=== PATIENT | female | born 1980 | race Caucasian/White ===

== ENCOUNTER 2016-08-23 11:48 | Inpatient (IN) | payer BC ==
[2016-08-23] MEDS ORDERED: SODIUM CHLORIDE 0.9% 1,000 ML IV STA ×2 (12:08)
--- NOTE | 2016-08-23 12:12 | ED ---
General Adult HPI - General Chief complaint: Abdominal Pain Stated complaint: CONSTIPATION Time Seen by Provider: 08/23/16 12:01 Source: patient, RN notes reviewed Mode of arrival: ambulatory Limitations: no limitations - History of Present Illness Initial comments: Patient 36-year-old female who presents emergency room today with a chief complaint of abdominal pain. She does admit that pain started approximately a week ago has seen her family doctor and did have an outpatient CT of the abdomen performed at [facility] yesterday. States still having pain today call the family doctor who advised to come to the hospital. She decided to come here. Patient doesn't pain locally to the lower abdomen. She states she does feel some pain in her back as well. She states she's not had a good bowel movement in over a week. She does admit that she's had some loose stool and maybe small amounts at times but nothing significant. Patient states never had similar symptoms in the past. She denies any other complaints or associated symptoms at this time. Patient denies any recent fever, chills, shortness of breath, chest pain, nausea or vomiting, numbness or tingling, dysuria or hematuria, diarrhea, headaches or visual changes, or any other complaints. - Related Data Home Medications Medication Instructions Recorded Confirmed Albuterol Sulfate [Ventolin HFA] 1 - 2 puff INHALATION RT-Q6H PRN 12/29/1408/23 Allergies Allergy/AdvReac Type Severity Reaction Status Date / Time lisinopril Allergy Anaphylaxis Verified 08/23/16 13:00 Review of Systems ROS Statement: Those systems with pertinent positive or pertinent negative responses have been documented in the HPI. ROS Other: All systems not noted in ROS Statement are negative. Past Medical History Additional Past Medical History / Comment(s): ABD PAIN, POSITIVE OCCULT STOOL, STATES MAY STILL HAVE HTN, BUT NOT ON ANY MEDICATION History of Any Multi-Drug Resistant Organisms: None Reported Past Surgical History: Adenoidectomy, Tonsillectomy Additional Past Surgical History / Comment(s): 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PLACENTA Past Anesthesia/Blood Transfusion Reactions: No Reported Reaction Past Psychological History: No Psychological Hx Reported Smoking Status: Current every day smoker Past Alcohol Use History: Occasional Past Drug Use History: None Reported - Past Family History Father Family Medical History: Cancer Additional Family Medical History / Comment(s): LEUKEMIA General Exam - General Exam Comments Initial Comments: General: The patient is awake and alert, in no distress, and does not appear acutely ill. Eye: Pupils are equal, round and reactive to light, extra-ocular movements are intact. No nystagmus. There is normal conjunctiva bilaterally. No signs of icterus. Ears, nose, mouth and throat: There are moist mucous membranes and no oral lesions. Neck: The neck is supple, there is no tenderness or JVD. Cardiovascular: There is a regular rate and rhythm. No murmur, rub or gallop is appreciated. Respiratory: Lungs are clear to auscultation, respirations are non-labored, breath sounds are equal. No wheezes, stridor, rales, or rhonchi. Gastrointestinal: Abdomen appears them. Normal bowel sounds. Abdomen soft on palpation. Patient does have some tenderness to the left lower quadrant. No rebound tenderness. No guarding. No CVA tenderness. Musculoskeletal: Normal ROM, no tenderness. Strength 5/5. Sensation intact. Pulses equal bilaterally 2+. Neurological: A&O x 3. CN II-XII intact, There are no obvious motor or sensory deficits. Coordination appears grossly intact. Speech is normal. Skin: Skin is warm and dry and no rashes or lesions are noted. Psychiatric: Cooperative, appropriate mood & affect, normal judgment. Limitations: no limitations Course Vital Signs 08/23/16 08/23/16 11:49 12:50 Temperature 98.2 F 98.1 F Pulse Rate 106 H 98 Respiratory 18 16 Rate Blood Pressure 170/93 133/76 O2 Sat by Pulse 94 L 95 Oximetry Medical Decision Making - Medical Decision Making Patient's CT of the abdomen pelvis that was performed yesterday at [facility] was reviewed and does show inflammatory changes in the posterior lateral left hemipelvis adjacent to the sigmoid colon. Acute diverticulitis or neoplasm should be considered. Follow-up is recommended as read by radiologist patient's labs been reviewed today. Case was discussed in detail with attending physician Dr. Neves. Patient will be admitted to Dr. lovell with consult to Dr. Hurtado. Patient will be started on antibiotics of Levaquin and Flagyl - Lab Data Result diagrams: 08/23/16 12:35 08/23/16 12:35 Lab Results 05/27/17 05/27/17 05/27/17 Range/Units 12:35 12:35 12:45 WBC 8.4 (3.8-10.6) k/uL RBC 4.74 (3.80-5.40) m/uL Hgb 14.7 (11.4-16.0) gm/dL Hct 43.2 (34.0-46.0) % MCV 91.2 (80.0-100.0) fL MCH 31.0 (25.0-35.0) pg MCHC 33.9 (31.0-37.0) g/dL RDW 13.8 (11.5-15.5) % Plt Count 230 (150-450) k/uL Neutrophils % 75 % Lymphocytes % 18 % Monocytes % 4 % Eosinophils % 1 % Basophils % 0 % Neutrophils # 6.4 (1.3-7.7) k/uL Lymphocytes # 1.6 (1.0-4.8) k/uL Monocytes # 0.3 (0-1.0) k/uL Eosinophils # 0.1 (0-0.7) k/uL Basophils # 0.0 (0-0.2) k/uL Sodium 141 (137-145) mmol/L Potassium 3.8 (3.5-5.1) mmol/L Chloride 105 (98-107) mmol/L Carbon Dioxide 27 (22-30) mmol/L Anion Gap 9 mmol/L BUN 9 (7-17) mg/dL Creatinine 0.64 (0.52-1.04) mg/dL Est GFR (MDRD) Af Amer >60 (>60 ml/min/1.73 sqM) Est GFR (MDRD) Non-Af >60 (>60 ml/min/1.73 sqM) Glucose 133 H (74-99) mg/dL Calcium 9.1 (8.4-10.2) mg/dL Total Bilirubin 0.8 (0.2-1.3) mg/dL AST 68 H (14-36) U/L ALT 78 H (9-52) U/L Alkaline Phosphatase 115 (38-126) U/L Total Protein 7.1 (6.3-8.2) g/dL Albumin 3.7 (3.5-5.0) g/dL Lipase 77 (23-300) U/L Urine Color Urine Appearance (Clear) Urine pH (5.0-8.0) Ur Specific Bradford (1.001-1.035) Urine Protein (Negative) Urine Glucose (UA) (Negative) Urine Ketones (Negative) Urine Blood (Negative) Urine Nitrite (Negative) Urine Bilirubin (Negative) Urine Urobilinogen (<2.0) mg/dL Ur Leukocyte Esterase (Negative) Urine RBC (0-5) /hpf Urine WBC (0-5) /hpf Ur Squamous Epith Cells (0-4) /hpf Urine Mucus (None) /hpf Urine HCG, Qual Not Detected (Not Detectd) 08/23/16 Range/Units 12:45 WBC (3.8-10.6) k/uL RBC (3.80-5.40) m/uL Hgb (11.4-16.0) gm/dL Hct (34.0-46.0) % MCV (80.0-100.0) fL MCH (25.0-35.0) pg MCHC (31.0-37.0) g/dL RDW (11.5-15.5) % Plt Count (150-450) k/uL Neutrophils % % Lymphocytes % % Monocytes % % Eosinophils % % Basophils % % Neutrophils # (1.3-7.7) k/uL Lymphocytes # (1.0-4.8) k/uL Monocytes # (0-1.0) k/uL Eosinophils # (0-0.7) k/uL Basophils # (0-0.2) k/uL Sodium (137-145) mmol/L Potassium (3.5-5.1) mmol/L Chloride (98-107) mmol/L Carbon Dioxide (22-30) mmol/L Anion Gap mmol/L BUN (7-17) mg/dL Creatinine (0.52-1.04) mg/dL Est GFR (MDRD) Af Amer (>60 ml/min/1.73 sqM) Est GFR (MDRD) Non-Af (>60 ml/min/1.73 sqM) Glucose (74-99) mg/dL Calcium (8.4-10.2) mg/dL Total Bilirubin (0.2-1.3) mg/dL AST (14-36) U/L ALT (9-52) U/L Alkaline Phosphatase (38-126) U/L Total Protein (6.3-8.2) g/dL Albumin (3.5-5.0) g/dL Lipase (23-300) U/L Urine Color Yellow Urine Appearance Cloudy H (Clear) Urine pH 7.0 (5.0-8.0) Ur Specific Bradford 1.018 (1.001-1.035) Urine Protein 3+ H (Negative) Urine Glucose (UA) Negative (Negative) Urine Ketones Negative (Negative) Urine Blood Negative (Negative) Urine Nitrite Negative (Negative) Urine Bilirubin Negative (Negative) Urine Urobilinogen 12.0 (<2.0) mg/dL Ur Leukocyte Esterase Negative (Negative) Urine RBC <1 (0-5) /hpf Urine WBC 1 (0-5) /hpf Ur Squamous Epith Cells 4 (0-4) /hpf Urine Mucus Occasional H (None) /hpf Urine HCG, Qual (Not Detectd) Disposition Clinical Impression: Acute diverticulitis Disposition: ADMITTED IP TO THIS [facility] Condition: Good Referrals: Sparkle Harris DO [Primary Care Provider] - 1-2 days Time of Disposition: 13:37
[2016-08-23 12:47] LABS: Basophils % (A) 0 %; CH 30.9; Eosinophils # (A) 0.1 k/uL (0-0.7); Eosinophils % (A) 1 %; HCT 43.2 % (34.0-46.0); HDW 2.25; HGB 14.7 gm/dL (11.4-16.0); Luc % (Auto) 1; Lymphocytes # (A) 1.6 k/uL (1.0-4.8); Lymphocytes % (A) 18 %; MCHC 33.9 g/dL (31.0-37.0); MCV 91.2 fL (80.0-100.0); Mean Platelet Volume 6.9; Monocytes # (A) 0.3 k/uL (0-1.0); Monocytes % (A) 4 %; Neutrophils # (A) 6.4 k/uL (1.3-7.7); Neutrophils % (A) 75 %; RBC 4.74 m/uL (3.80-5.40); RDW 13.8 % (11.5-15.5); WBC 8.4 k/uL (3.8-10.6); WBC (Perox) 8.23
[2016-08-23 12:54] LABS: ALT 78 U/L (9-52); AST 68 U/L (14-36); Alkaline Phosphatase 115 U/L (38-126); Anion Gap 9 mmol/L; Blood Urea Nitrogen 9 mg/dL (7-17); Calcium 9.1 mg/dL (8.4-10.2); Carbon Dioxide 27 mmol/L (22-30); Chloride 105 mmol/L (98-107); Glucose 133 mg/dL (74-99); Non-African American GFR(MDRD) >60 (>60 ml/min/1.73 sqM); Potassium 3.8 mmol/L (3.5-5.1); Sodium 141 mmol/L (137-145); Total Bilirubin 0.8 mg/dL (0.2-1.3); Total Protein 7.1 g/dL (6.3-8.2)
[2016-08-23 13:04] LABS: Appearance,Urine Cloudy (Clear); Bilirubin,Urine Negative (Negative); Glucose,Urine (UA) Negative (Negative); Ketones,Urine Negative (Negative); Leukocyte Esterase,Urine Negative (Negative); Mucus,Urine Occasional /hpf; Nitrite,Urine Negative (Negative); Particle Count 3864; Protein,Urine 3+ (Negative); RBC,Urine <1 /hpf (0-5); Specific Gravity,Urine 1.018 (1.001-1.035); Squamous Epithelial Cell,Urine 4 /hpf (0-4); UA Billing (MACRO vs. MICRO) MICRO; WBC,Urine 1 /hpf (0-5)
[2016-08-23] MEDS ORDERED: SODIUM CHLORIDE 0.9% 1,000 ML IV ONE (13:57)
[2016-08-23] MEDS ORDERED: ONDANSETRON 4 MG/2 ML VIAL IVP PRN (13:57)
[2016-08-23] MEDS ORDERED: HYDROmorphone 1 MG/ML 1 ML SYRINGE IV PRN (13:57)
[2016-08-23] MEDS ORDERED: NALOXONE 0.4 MG/ML 1 ML VIAL IV PRN (13:57)
[2016-08-23] MEDS ORDERED: LEVOFLOXACIN 500MG-D5W PMX 500 MG in DEXTROSE/WATER 1 100ML.BAG IVPB STA (13:59)
[2016-08-23] MEDS ORDERED: metroNIDAZOLE-NS PMX 500 MG in SALINE 1 100ML.BAG IVPB STA (14:04)
[2016-08-23 15:43] VITALS: BMI 35.7
[2016-08-23] MEDS: ACETAMINOPHEN TAB 325 MG TAB PO PRN (21:32)
[2016-08-24] MEDS: metroNIDAZOLE-NS PMX 500 MG in SALINE 1 100ML.BAG IVPB SCH ×4 (01:07→23:03)
[2016-08-24 07:16] LABS: Basophils % (A) 0 %; CH 30.3; CHCM 32.2; Eosinophils # (A) 0.1 k/uL (0-0.7); Eosinophils % (A) 1 %; HCT 42.7 % (34.0-46.0); HDW 2.15; HGB 13.6 gm/dL (11.4-16.0); Luc # (Auto) 0.15; Luc % (Auto) 2; Lymphocytes # (A) 1.5 k/uL (1.0-4.8); Lymphocytes % (A) 18 %; MCH 30.1 pg (25.0-35.0); MCHC 31.9 g/dL (31.0-37.0); MCV 94.4 fL (80.0-100.0); Mean Platelet Volume 6.9; Monocytes # (A) 0.5 k/uL (0-1.0); Monocytes % (A) 6 %; Neutrophils # (A) 6.3 k/uL (1.3-7.7); Neutrophils % (A) 74 %; RBC 4.52 m/uL (3.80-5.40); RDW 13.8 % (11.5-15.5); WBC 8.6 k/uL (3.8-10.6); WBC (Perox) 8.47
[2016-08-24] MEDS: ACETAMINOPHEN TAB 325 MG TAB PO PRN (07:24)
[2016-08-24 07:46] LABS: ALT 62 U/L (9-52); AST 43 U/L (14-36); Alkaline Phosphatase 105 U/L (38-126); Anion Gap 8 mmol/L; Blood Urea Nitrogen 7 mg/dL (7-17); Calcium 8.7 mg/dL (8.4-10.2); Carbon Dioxide 21 mmol/L (22-30); Chloride 109 mmol/L (98-107); Glucose 107 mg/dL (74-99); Non-African American GFR(MDRD) >60 (>60 ml/min/1.73 sqM); Potassium 4.2 mmol/L (3.5-5.1); Sodium 138 mmol/L (137-145); Total Bilirubin 0.7 mg/dL (0.2-1.3); Total Protein 6.6 g/dL (6.3-8.2)
[2016-08-24] MEDS ORDERED: RX INFO: IV CONTRAST WAS GIVEN 1 EACH MISC MISCELLANE PRN (13:07)
--- NOTE | 2016-08-24 13:07 | P.GSCN ---
History of Present Illness Consult date: 08/24/16 Reason for Consult: Diverticulitis History of present illness: This is a 36-year-old female who was admitted to the hospital complaints of abdominal pain. Patient to CAT scan performed at [facility] which was suspicious for diverticulitis. Patient states that she has crampy abdominal pain. The patient states that she's not had normal bowel movements for 2 weeks. Past Medical History Additional Past Medical History / Comment(s): ABD PAIN, POSITIVE OCCULT STOOL, STATES MAY STILL HAVE HTN, BUT NOT ON ANY MEDICATION History of Any Multi-Drug Resistant Organisms: None Reported Past Surgical History: Adenoidectomy, Tonsillectomy Additional Past Surgical History / Comment(s): 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PLACENTA Past Anesthesia/Blood Transfusion Reactions: No Reported Reaction Past Psychological History: No Psychological Hx Reported Smoking Status: Current every day smoker Past Alcohol Use History: Occasional Additional Past Alcohol Use History / Comment(s): pt states drinks up to 12 drinks every other day. Past Drug Use History: None Reported - Past Family History Father Family Medical History: Cancer Additional Family Medical History / Comment(s): LEUKEMIA Medications and Allergies Home Medications Medication Instructions Recorded Confirmed Type Albuterol Sulfate [Ventolin HFA] 1 - 2 puff INHALATION RT-Q6H PRN 12/29/1408/23 History Allergies Allergy/AdvReac Type Severity Reaction Status Date / Time lisinopril Allergy Anaphylaxis Verified 08/23/16 13:00 Surgical - Exam Vital Signs Temp Pulse Resp BP Pulse Ox 98.2 F 106 H 18 170/93 94 L 08/23/16 11:49 08/23/16 11:49 08/23/16 11:49 08/23/16 11:49 08/23/16 11:49 - General well developed, no distress - Eyes PERRL - ENT normal pinna - Neck no masses - Respiratory normal expansion - Abdomen Mild left lower quadrant tenderness Abdomen: soft Results - Labs 08/24/16 06:10 08/24/16 06:10 Abnormal Lab Results - Last 24 Hours (Table) 08/24/16 Range/Units 06:10 Chloride 109 H (98-107) mmol/L Carbon Dioxide 21 L (22-30) mmol/L Creatinine 0.50 L (0.52-1.04) mg/dL Glucose 107 H (74-99) mg/dL AST 43 H (14-36) U/L ALT 62 H (9-52) U/L Albumin 3.4 L (3.5-5.0) g/dL Diabetes panel 08/24/16 Range/Units 06:10 Sodium 138 (137-145) mmol/L Potassium 4.2 (3.5-5.1) mmol/L Chloride 109 H (98-107) mmol/L Carbon Dioxide 21 L (22-30) mmol/L BUN 7 (7-17) mg/dL Creatinine 0.50 L (0.52-1.04) mg/dL Glucose 107 H (74-99) mg/dL Calcium 8.7 (8.4-10.2) mg/dL AST 43 H (14-36) U/L ALT 62 H (9-52) U/L Alkaline Phosphatase 105 (38-126) U/L Total Protein 6.6 (6.3-8.2) g/dL Albumin 3.4 L (3.5-5.0) g/dL Calcium panel 08/24/16 Range/Units 06:10 Calcium 8.7 (8.4-10.2) mg/dL Albumin 3.4 L (3.5-5.0) g/dL Pituitary panel 08/24/16 Range/Units 06:10 Sodium 138 (137-145) mmol/L Potassium 4.2 (3.5-5.1) mmol/L Chloride 109 H (98-107) mmol/L Carbon Dioxide 21 L (22-30) mmol/L BUN 7 (7-17) mg/dL Creatinine 0.50 L (0.52-1.04) mg/dL Glucose 107 H (74-99) mg/dL Calcium 8.7 (8.4-10.2) mg/dL Adrenal panel 08/24/16 Range/Units 06:10 Sodium 138 (137-145) mmol/L Potassium 4.2 (3.5-5.1) mmol/L Chloride 109 H (98-107) mmol/L Carbon Dioxide 21 L (22-30) mmol/L BUN 7 (7-17) mg/dL Creatinine 0.50 L (0.52-1.04) mg/dL Glucose 107 H (74-99) mg/dL Calcium 8.7 (8.4-10.2) mg/dL Total Bilirubin 0.7 (0.2-1.3) mg/dL AST 43 H (14-36) U/L ALT 62 H (9-52) U/L Alkaline Phosphatase 105 (38-126) U/L Total Protein 6.6 (6.3-8.2) g/dL Albumin 3.4 L (3.5-5.0) g/dL Assessment and Plan Plan: Diverticula is. Patient will have repeat CAT scan performed today. She'll also receive a Fleet enema.
[2016-08-24] MEDS ORDERED: NA PHOS,M-B/NA PHOS,DI-BA 133 ML ENEMA RECTAL ONE (13:09)
[2016-08-24] MEDS: LEVOFLOXACIN 500MG-D5W PMX 500 MG in DEXTROSE/WATER 1 100ML.BAG IVPB SCH (13:56)
[2016-08-24] MEDS: IOHEXOL 350 MG/ML 25 ML BOTTLE (ORAL USE) PO PRN ×2 (14:26→15:28)
--- NOTE | 2016-08-24 14:46 | P.HPIM ---
History of Present Illness H&P Date: 08/24/16 Chief Complaint: Constipation This is a 36-year-old female with no significant past medical history who presented to the hospital with abdominal pain and constipation. Patient states with the past 2 week she's been having problems with her bowel movement. She said that she is only having liquid stool and occasionally small pieces of stool. She's always had normal bowel movement. There was no recent change in her diet. She has been having worsening abdominal bloating and decreased appetite. She denies any nausea or vomiting. She was evaluated at an outside emergency room yesterday and a computed tomography scan of the abdomen showed findings suspected for colitis/enteritis. She is currently admitted to the hospital on IV antibiotic treatment. Neurosurgery consulted. Review of Systems Review of system: 14 points review of systems were obtained and were negative except to what were mentioned in the HPI. Past Medical History Additional Past Medical History / Comment(s): ABD PAIN, POSITIVE OCCULT STOOL, STATES MAY STILL HAVE HTN, BUT NOT ON ANY MEDICATION History of Any Multi-Drug Resistant Organisms: None Reported Past Surgical History: Adenoidectomy, Tonsillectomy Additional Past Surgical History / Comment(s): 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PLACENTA Past Anesthesia/Blood Transfusion Reactions: No Reported Reaction Past Psychological History: No Psychological Hx Reported Smoking Status: Current every day smoker Past Alcohol Use History: Occasional Additional Past Alcohol Use History / Comment(s): pt states drinks up to 12 drinks every other day. Past Drug Use History: None Reported - Past Family History Father Family Medical History: Cancer Additional Family Medical History / Comment(s): LEUKEMIA Medications and Allergies Home Medications Medication Instructions Recorded Confirmed Type Albuterol Sulfate [Ventolin HFA] 1 - 2 puff INHALATION RT-Q6H PRN 12/29/1408/23 History Allergies Allergy/AdvReac Type Severity Reaction Status Date / Time lisinopril Allergy Anaphylaxis Verified 08/23/16 13:00 Physical Exam Vitals: Vital Signs Temp Pulse Resp BP BP Pulse Ox 08/24/16 08:00 97.9 F 86 16 151/96 96 08/24/16 04:00 18 08/24/16 00:00 18 08/23/16 23:00 92 18 133/88 96 08/23/16 19:53 18 08/23/16 19:26 99.2 F 89 18 144/93 96 08/23/16 15:30 98.1 F 91 16 151/98 96 Intake and Output 08/23/16 08/24/16 08/24/16 22:59 06:59 14:59 Other: Voiding Method Toilet # Voids 1 Weight 97.522 kg General: The patient is awake and alert, in no distress Eye: there is normal conjunctiva bilaterally. Neck: The neck is supple, there is no JVD. Cardiovascular: Normal S1-S2, no S3-S4, no murmurs. Respiratory: Lungs clear to auscultation bilaterally Gastrointestinal: Abdomen is soft, nontender Musculoskeletal: There is no pedal edema. Neurological:. Speech is normal. Skin: Skin is warm and dry Results CBC & Chem 7: 08/24/16 06:10 08/24/16 06:10 Labs: Abnormal Lab Results - Last 24 Hours (Table) 08/24/16 Range/Units 06:10 Chloride 109 H (98-107) mmol/L Carbon Dioxide 21 L (22-30) mmol/L Creatinine 0.50 L (0.52-1.04) mg/dL Glucose 107 H (74-99) mg/dL AST 43 H (14-36) U/L ALT 62 H (9-52) U/L Albumin 3.4 L (3.5-5.0) g/dL Thrombosis Risk Factor Assmnt - Choose All That Apply Any of the Below Risk Factors Present?: Yes Each Factor Represents 1 point: Obesity (BMI >25) Thrombosis Risk Factor Assessment Total Risk Factor Score: 1 Thrombosis Risk Factor Assessment Level: Low Risk Assessment and Plan Plan: This is a 36-year-old female who presented to the hospital with abdominal pain and constipation. She is scheduled for repeat computed tomography scan of the abdomen today. She is currently on antibiotic for treatment of suspected underlying colitis/enteritis. We will continue IV fluid hydration. Plan for soapsuds enema today. Appreciate surgery recommendations. Repeat lab work in the morning.
--- NOTE | 2016-08-24 16:32 | CT ---
EXAMINATION TYPE: CT abdomen pelvis w con DATE OF EXAM: 08/24/2016 4:07 PM COMPARISON: NONE HISTORY: Constipation x [address] DLP: 1432.50 mGycm Automated exposure control for dose reduction was used. TECHNIQUE: Helical acquisition of images was performed from the lung bases through the pelvis. CONTRAST: Performed with Oral Contrast and with IV Contrast, patient injected with 100 mL of Omnipaque 300. FINDINGS: Lung bases are clear. There is no pleural effusion. Heart size is normal. Liver spleen pancreas gallbladder appear normal. While ducts are not dilated. There is no adrenal mas s. Kidneys show satisfactory contrast opacification. There is no hydronephrosis. There is no retroper itoneal adenopathy. There is no ascites. There is wall thickening involving mid sigmoid colon with mcwilliams rrounding fat stranding. There is no definite drainable fluid collection. The bladder distends smooth ly. I see no bony destructive process. Uterus is anteverted. Appendix appears normal. IMPRESSION: THERE ARE INFLAMMATORY CHANGES AROUND THE MID SIGMOID COLON WITH WALL THICKENING. THIS IS CONSISTENT WITH ACUTE DIVERTICULITIS. NORMAL APPENDIX.
[2016-08-25 07:09] VITALS: RESP 16
[2016-08-25] MEDS: metroNIDAZOLE-NS PMX 500 MG in SALINE 1 100ML.BAG IVPB SCH ×2 (08:30→17:51)
--- NOTE | 2016-08-25 11:08 | P.PN ---
Progress Note - Text The patient still has complaints of pain. Her CAT scan yesterday shows evidence of acute sigmoid diverticulitis. She had a small bowel movement with her Fleet enema. On exam her vital signs are stable. Her abdomen soft. Acute diverticulitis We'll continue IV antibiotics and bowel rest
[2016-08-25] MEDS: LEVOFLOXACIN 500MG-D5W PMX 500 MG in DEXTROSE/WATER 1 100ML.BAG IVPB SCH (14:00)
[2016-08-25] MEDS ORDERED: SODIUM CHLORIDE 0.9% 1,000 ML IV SCH (14:15)
--- NOTE | 2016-08-25 14:43 | P.PN ---
Subjective Patient is doing a lot better today. She remained nothing by mouth. Her pain is improving. Objective - Vital Signs Vital signs: Vital Signs Temp 98 F 08/25/16 07:08 Pulse 73 08/25/16 07:08 Resp 16 08/25/16 07:08 BP 150/90 08/25/16 07:08 Pulse Ox 93 L 08/25/16 07:08 Intake & Output 08/24/16 08/25/16 08/25/16 18:59 06:59 18:59 Intake Total 100 Balance 100 Intake: Intake, IV Titration 100 Amount metroNIDAZOLE-NS PMX 500 100 mg In Saline 1 100ml.bag @ 100 mls/hr IVPB Q8HR [place] Rx#:[id number] Other: Voiding Method Toilet Toilet Toilet # Voids 3 - Exam General: The patient is awake and alert, in no distress Eye: there is normal conjunctiva bilaterally. Neck: The neck is supple, there is no JVD. Cardiovascular: Normal S1-S2, no S3-S4, no murmurs. Respiratory: Lungs clear to auscultation bilaterally Gastrointestinal: Abdomen is soft, nontender Musculoskeletal: There is no pedal edema. Neurological:. Speech is normal. Skin: Skin is warm and dry - Labs CBC & Chem 7: 08/24/16 06:10 08/24/16 06:10 Assessment and Plan Plan: This is a 36-year-old female who presented to the hospital with abdominal pain and constipation. She was found to have evidence of acute diverticulitis on computed tomography scan of the abdomen. She is currently nothing by mouth. She was seen and evaluated by general surgery. Continue antibiotic as ordered. We will continue IV fluid hydration. Repeat lab work in the morning.
[2016-08-26] MEDS: metroNIDAZOLE-NS PMX 500 MG in SALINE 1 100ML.BAG IVPB SCH ×2 (00:02→07:47)
[2016-08-26 04:39] VITALS: PULSE 70
[2016-08-26 07:15] VITALS: BP 135/87; TEMP 98.1
--- NOTE | 2016-08-26 13:40 | P.DS ---
Providers Date of admission: 08/26/16 09:00 Expected date of discharge: 08/26/16 Attending physician: Miguel Stubbs Consults: 08/23/16 13:57 Consult Physician Stat Consulting Provider: Anthony Martínez Consult Reason/Comments: acute diverticulitis, rule out neoplasm Do you want consulting provider notified?: Yes Primary care physician: Sparkle Harris Hospital Course: This is a 36-year-old female who presented to the hospital with abdominal pain and constipation. She was found to have evidence of acute diverticulitis on computed tomography scan of the abdomen. She was seen and evaluated by general surgery. She was started on IV antibiotic and bowel rest. Her overall condition improved significantly throughout her hospital stay. She will be discharged home in a stable condition. She will finish 10 days course with antibiotic including Flagyl and Levaquin. She will follow-up with her primary care physician in one week as well as with general surgery for a follow-up colonoscopy in 6-8 weeks. Patient Condition at Discharge: Good Plan - Discharge Summary New Discharge Prescriptions: Levofloxacin [Levaquin] 500 mg PO DAILY #10 tab metroNIDAZOLE [Flagyl] 500 mg PO TID #30 tab Discharge Medication List RX: Albuterol Sulfate [Ventolin HFA] 1 - 2 puff INHALATION RT-Q6H PRN 12/29/14 [ History] Levofloxacin [Levaquin] 500 mg PO DAILY #10 tab 08/26/16 [Rx] metroNIDAZOLE [Flagyl] 500 mg PO TID #30 tab 08/26/16 [Rx] Follow up Appointment(s)/Referral(s): Sparkle Harris DO [Primary Care Provider] - 1-2 days Anthony Martínez MD [STAFF PHYSICIAN] - 1 Week Patient Instructions/Handouts: Diverticulitis (DC), Diverticulitis Diet (DC) Discharge Disposition: HOME SELF-CARE
--- NOTE | 2016-08-26 13:46 | P.PN ---
Subjective Patient is evaluated at bedside. Patient is doing well. Denies chills, fevers , nausea, vomiting, or abdominal pain. Patient is passing flatus and had 3 bowel movements this morning. Tolerating clear liquid diet. Afebrile. No evidence of leukocytosis. Objective - Vital Signs Vital signs: Vital Signs Temp 98.1 F 08/26/16 07:14 Pulse 70 08/26/16 07:14 Resp 16 08/26/16 10:26 BP 135/87 08/26/16 07:14 Pulse Ox 96 08/26/16 07:14 Intake & Output 08/25/16 08/26/16 08/26/16 18:59 06:59 18:59 Intake Total 575 Balance 575 Intake: Oral 575 Other: Voiding Method Toilet Toilet Toilet - Exam GENERAL: Pt awake and alert, well-appearing, well-nourished, and in no acute distress. LUNGS: Breath sounds clear to auscultation bilaterally. No wheezes, rales, or rhonchi. HEART: Heart S1, S2, no S3 or S4. Regular rate and rhythm. No murmurs, rubs or gallops. ABDOMEN: Soft, nontender, nondistended, normoactive bowel sounds. No guarding, no rebound. No masses or organomegaly appreciated. NEUROLOGICAL: Pt oriented x 3. - Labs CBC & Chem 7: 08/24/16 06:10 08/24/16 06:10 Assessment and Plan Plan: Impression: 1. Acute diverticulitis, present on admission, improving. Plan: Advance diet to full liquids. Continue antibiotics. Continue supportive treatment and pain management. From a surgical standpoint, patient is stable for discharge. Patient will follow-up with Dr. Martínez in one week after discharge. The above impression and plan have been discussed and directed by Dr. Martínez. Carlos GRIMALDO acting as scribe for Dr. Martínez.
== END 2016-08-26 16:14 | disposition home or self-care (01) | DRG 392 ==
LOC: EC 11:48 → 3SUR 15:05 → OBSVTOIN 08-26 09:00
PROVIDERS: ADMIT Internal Medicine; ATTEND Internal Medicine
DX: K57.32 Diverticulitis of large intestine without perforation or abscess without bleeding (principal); F17.200 Nicotine dependence, unspecified, uncomplicated; K59.00 Constipation, unspecified; R14.0 Abdominal distension (gaseous); M54.9 Dorsalgia, unspecified; Z71.3 Dietary counseling and surveillance; Z80.6 Family history of leukemia; Z86.79 Personal history of other diseases of the circulatory system; Z88.8 Allergy status to other drugs, medicaments and biological substances
CPT/HCPCS: 36415; 74177; 80053; 81001; 81025; 83690; 85025; 96361; 96365; 96366; 96367; 99285

== ENCOUNTER 2017-07-12 13:25 | Emergency (ER) | payer BC ==
[2017-07-12] MEDS ORDERED: ONDANSETRON 4 MG/2 ML VIAL IVP STA (13:53)
[2017-07-12] MEDS ORDERED: SODIUM CHLORIDE 0.9% 500 ML IV STA (13:53)
[2017-07-12] MEDS ORDERED: RX INFO: IV CONTRAST WAS GIVEN 1 EACH MISC MISCELLANE PRN (13:53)
[2017-07-12] MEDS ORDERED: MORPHINE SULFATE 4MG/4ML SYRG IVP STA (13:55)
--- NOTE | 2017-07-12 14:20 | ED ---
General Adult HPI - General Chief complaint: Headache Stated complaint: vision issues, headache Time Seen by Provider: 07/12/17 13:40 Source: patient, RN notes reviewed, old records reviewed Mode of arrival: ambulatory Limitations: no limitations - History of Present Illness Initial comments: This is a 37-year-old female to the ER for evaluation. Patient presents today for evaluation regards to vision loss. Peripheral vision loss while she was at work earlier today. Patient states she woke with mild headache today and had a progressed. Symptoms are now resolved. Patient has history of cataracts, no other significant medical history. No history of stroke. Patient denies any other neurological complaint. She states she lost some progressive visual loss earlier today and may be some blurry vision as well. Patient states symptoms resolved on her own. This is only she's had multiple times in her past again prior episodes had complete resolution - Related Data Home Medications Medication Instructions Recorded Confirmed Albuterol Sulfate [Ventolin HFA] 1 - 2 puff INHALATION RT-Q6H PRN 12/29/1408/23 Previous Rx's Medication Instructions Recorded Levofloxacin [Levaquin] 500 mg PO DAILY #10 tab 08/26/16 metroNIDAZOLE [Flagyl] 500 mg PO TID #30 tab 08/26/16 Allergies Allergy/AdvReac Type Severity Reaction Status Date / Time lisinopril Allergy Anaphylaxis Verified 07/12/17 13:31 Review of Systems ROS Statement: Those systems with pertinent positive or pertinent negative responses have been documented in the HPI. ROS Other: All systems not noted in ROS Statement are negative. 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[employer] Past Anesthesia/Blood Transfusion Reactions: No Reported Reaction Past Psychological History: No Psychological Hx Reported Smoking Status: Current every day smoker Past Alcohol Use History: Occasional Past Drug Use History: None Reported - Past Family History Father Family Medical History: Cancer Additional Family Medical History / Comment(s): LEUKEMIA General Exam - General Exam Comments Initial Comments: Bilateral pressure testing, tonometry, 16 left 18 right Limitations: no limitations General appearance: alert, in no apparent distress Head exam: Present: atraumatic, normocephalic, normal inspection Eye exam: Present: normal appearance, PERRL, EOMI. Absent: scleral icterus, conjunctival injection, periorbital swelling ENT exam: Present: normal exam, mucous membranes moist Neck exam: Present: normal inspection. Absent: tenderness, meningismus, lymphadenopathy Respiratory exam: Present: normal lung sounds bilaterally. Absent: respiratory distress, wheezes, rales, rhonchi, stridor Cardiovascular Exam: Present: regular rate, normal rhythm, normal heart sounds. Absent: systolic murmur, diastolic murmur, rubs, gallop, clicks GI/Abdominal exam: Present: soft, normal bowel sounds. Absent: distended, tenderness, guarding, rebound, rigid Extremities exam: Present: normal inspection, full ROM, normal capillary refill. Absent: tenderness, pedal edema, joint swelling, calf tenderness Back exam: Present: normal inspection Neurological exam: Present: alert, oriented X3, CN II-XII intact Psychiatric exam: Present: normal affect, normal mood Skin exam: Present: warm, dry, intact, normal color. Absent: rash Course Vital Signs 07/12/17 07/12/17 07/12/17 13:29 14:17 16:20 Temperature 98.3 F 97.6 F Pulse Rate 81 71 Respiratory 20 16 Rate Blood Pressure 185/101 147/96 137/85 O2 Sat by Pulse 98 97 Oximetry - Reevaluation(s) Reevaluation #1: 07/12/17 16:31 Patient remains without symptoms, headache currently resolved Medical Decision Making - Medical Decision Making 7 female the ER for evaluation of episodic episode of visual loss peripheral visual loss earlier today. Symptoms resolved on their own, patient also had right-sided migraine. Headache is resolved vision loss has been resolved remains fine, he states she's had this issue before in her life, is following up with ophthalmology currently. Patient has no symptoms right now can be discharged home - Lab Data Result diagrams: 07/12/17 14:30 07/12/17 14:30 Lab Results 07/12/17 07/12/17 07/12/17 Range/Units 14:30 14:30 14:30 WBC 8.2 (3.8-10.6) k/uL RBC 4.79 (3.80-5.40) m/uL Hgb 13.9 (11.4-16.0) gm/dL Hct 42.6 (34.0-46.0) % MCV 88.8 (80.0-100.0) fL MCH 29.0 (25.0-35.0) pg MCHC 32.6 (31.0-37.0) g/dL RDW 13.7 (11.5-15.5) % Plt Count 202 (150-450) k/uL Neutrophils % 68 % Lymphocytes % 24 % Monocytes % 5 % Eosinophils % 2 % Basophils % 0 % Neutrophils # 5.6 (1.3-7.7) k/uL Lymphocytes # 2.0 (1.0-4.8) k/uL Monocytes # 0.4 (0-1.0) k/uL Eosinophils # 0.2 (0-0.7) k/uL Basophils # 0.0 (0-0.2) k/uL PT (9.0-12.0) sec INR (<1.2) APTT (22.0-30.0) sec Sodium 135 L (137-145) mmol/L Potassium 4.0 (3.5-5.1) mmol/L Chloride 101 (98-107) mmol/L Carbon Dioxide 26 (22-30) mmol/L Anion Gap 8 mmol/L BUN 11 (7-17) mg/dL Creatinine 0.61 (0.52-1.04) mg/dL Est GFR (CKD-EPI)AfAm >90 (>60 ml/min/1.73 sqM) Est GFR (CKD-EPI)NonAf >90 (>60 ml/min/1.73 sqM) Glucose 96 (74-99) mg/dL Calcium 8.6 (8.4-10.2) mg/dL Phosphorus 3.7 (2.5-4.5) mg/dL Magnesium 1.6 (1.6-2.3) mg/dL Total Bilirubin 0.3 (0.2-1.3) mg/dL AST 51 H (14-36) U/L ALT 67 H (9-52) U/L Alkaline Phosphatase 118 (38-126) U/L Total Creatine Kinase 146 H (30-135) U/L CK-MB (CK-2) 1.4 (0.0-2.4) ng/mL CK-MB (CK-2) Rel Index 1.0 Troponin I <0.012 (0.000-0.034) ng/mL Total Protein 6.4 (6.3-8.2) g/dL Albumin 3.3 L (3.5-5.0) g/dL Urine Color Urine Appearance (Clear) Urine pH (5.0-8.0) Ur Specific [place] (1.001-1.035) Urine Protein (Negative) Urine Glucose (UA) (Negative) Urine Ketones (Negative) Urine Blood (Negative) Urine Nitrite (Negative) Urine Bilirubin (Negative) Urine Urobilinogen (<2.0) mg/dL Ur Leukocyte Esterase (Negative) Urine WBC (0-5) /hpf Ur Squamous Epith Cells (0-4) /hpf Urine Mucus (None) /hpf Urine HCG, Qual (Not Detectd) 07/12/17 07/12/17 07/12/17 Range/Units 14:30 14:40 14:40 WBC (3.8-10.6) k/uL RBC (3.80-5.40) m/uL Hgb (11.4-16.0) gm/dL Hct (34.0-46.0) % MCV (80.0-100.0) fL MCH (25.0-35.0) pg MCHC (31.0-37.0) g/dL RDW (11.5-15.5) % Plt Count (150-450) k/uL Neutrophils % % Lymphocytes % % Monocytes % % Eosinophils % % Basophils % % Neutrophils # (1.3-7.7) k/uL Lymphocytes # (1.0-4.8) k/uL Monocytes # (0-1.0) k/uL Eosinophils # (0-0.7) k/uL Basophils # (0-0.2) k/uL PT 10.3 (9.0-12.0) sec INR 1.1 (<1.2) APTT 24.2 (22.0-30.0) sec Sodium (137-145) mmol/L Potassium (3.5-5.1) mmol/L Chloride (98-107) mmol/L Carbon Dioxide (22-30) mmol/L Anion Gap mmol/L BUN (7-17) mg/dL Creatinine (0.52-1.04) mg/dL Est GFR (CKD-EPI)AfAm (>60 ml/min/1.73 sqM) Est GFR (CKD-EPI)NonAf (>60 ml/min/1.73 sqM) Glucose (74-99) mg/dL Calcium (8.4-10.2) mg/dL Phosphorus (2.5-4.5) mg/dL Magnesium (1.6-2.3) mg/dL Total Bilirubin (0.2-1.3) mg/dL AST (14-36) U/L ALT (9-52) U/L Alkaline Phosphatase (38-126) U/L Total Creatine Kinase (30-135) U/L CK-MB (CK-2) (0.0-2.4) ng/mL CK-MB (CK-2) Rel Index Troponin I (0.000-0.034) ng/mL Total Protein (6.3-8.2) g/dL Albumin (3.5-5.0) g/dL Urine Color Light Yellow Urine Appearance Clear (Clear) Urine pH 7.0 (5.0-8.0) Ur Specific [place] 1.012 (1.001-1.035) Urine Protein 1+ H (Negative) Urine Glucose (UA) Negative (Negative) Urine Ketones Negative (Negative) Urine Blood Negative (Negative) Urine Nitrite Negative (Negative) Urine Bilirubin Negative (Negative) Urine Urobilinogen <2.0 (<2.0) mg/dL Ur Leukocyte Esterase Trace H (Negative) Urine WBC 3 (0-5) /hpf Ur Squamous Epith Cells 5 H (0-4) /hpf Urine Mucus Rare H (None) /hpf Urine HCG, Qual Not Detected (Not Detectd) - Radiology Data Radiology results: report reviewed (CT CT brain negative for acute disease), image reviewed Disposition Clinical Impression: Headache, Peripheral vision loss Disposition: HOME SELF-CARE Condition: Good Instructions: Acute Headache (ED) Referrals: Sparkle Harris DO [Primary Care Provider] - 1-2 days
[2017-07-12 14:44] LABS: Basophils % (A) 0 %; Eosinophils # (A) 0.2 k/uL (0-0.7); Eosinophils % (A) 2 %; HCT 42.6 % (34.0-46.0); HGB 13.9 gm/dL (11.4-16.0); Lymphocytes % (A) 24 %; MCHC 32.6 g/dL (31.0-37.0); MCV 88.8 fL (80.0-100.0); Mean Platelet Volume 7.1; Monocytes # (A) 0.4 k/uL (0-1.0); Monocytes % (A) 5 %; Neutrophils # (A) 5.6 k/uL (1.3-7.7); Neutrophils % (A) 68 %; Platelet Count 202 k/uL (150-450); RBC 4.79 m/uL (3.80-5.40); RDW 13.7 % (11.5-15.5); WBC 8.2 k/uL (3.8-10.6)
[2017-07-12 14:53] LABS: ALT 67 U/L (9-52); AST 51 U/L (14-36); Albumin 3.3 g/dL (3.5-5.0); Alkaline Phosphatase 118 U/L (38-126); Anion Gap 8 mmol/L; Blood Urea Nitrogen 11 mg/dL (7-17); Calcium 8.6 mg/dL (8.4-10.2); Carbon Dioxide 26 mmol/L (22-30); Chloride 101 mmol/L (98-107); Glucose 96 mg/dL (74-99); INR 1.1 (<1.2); Magnesium 1.6 mg/dL (1.6-2.3); Partial Thromboplastin Time 24.2 sec (22.0-30.0); Phosphorus 3.7 mg/dL (2.5-4.5); Prothrombin Time 10.3 sec (9.0-12.0); Sodium 135 mmol/L (137-145); Total Bilirubin 0.3 mg/dL (0.2-1.3); Total Protein 6.4 g/dL (6.3-8.2)
[2017-07-12 15:02] LABS: Creatine Kinase 146 U/L (30-135)
[2017-07-12 15:06] LABS: Appearance,Urine Clear (Clear); Bilirubin,Urine Negative (Negative); Blood,Urine Negative (Negative); Color,Urine Light Yellow; Glucose,Urine (UA) Negative (Negative); Ketones,Urine Negative (Negative); Leukocyte Esterase,Urine Trace (Negative); Mucus,Urine Rare /hpf; Nitrite,Urine Negative (Negative); Protein,Urine 1+ (Negative); Specific Gravity,Urine 1.012 (1.001-1.035); Squamous Epithelial Cell,Urine 5 /hpf (0-4); Urobilinogen,Urine <2.0 mg/dL (<2.0); WBC,Urine 3 /hpf (0-5)
--- NOTE | 2017-07-12 15:11 | CT ---
EXAMINATION TYPE: CT brain wo con DATE OF EXAM: 07/12/2017 COMPARISON: NONE HISTORY: 37-year-old female Right sided headache and dizziness. TECHNIQUE: Examination was done in axial plane without intravenous contrast. Coronal and sagittal r econstructions performed. CT DLP: 855.9 mGycm Automated exposure control for dose reduction was used. FINDINGS: There is no evidence of acute intracranial hemorrhage, acute ischemic changes, mass, mass-effect, or extra-axial fluid collection. There is no effacement of cerebral sulci or basal subarachnoid cister ns. There is no hydrocephalus. There is no midline shift. Siddiqui-white matter distinction is preserv ed. Paranasal sinuses and mastoid air cells are well pneumatized. Orbits and globes are intact. IMPRESSION: No acute intracranial abnormality seen.
[2017-07-12 15:15] LABS: Creatine Kinase MB 1.4 ng/mL (0.0-2.4); Troponin I <0.012 ng/mL (0.000-0.034)
--- NOTE | 2017-07-12 15:20 | CT ---
EXAMINATION TYPE: CT angio head neck DATE OF EXAM: 07/12/2017 COMPARISON: NONE HISTORY: 37-year-old female Right sided headache and dizziness. TECHNIQUE: Contiguous axial scanning of the head and neck performed with IV Contrast, patient injecte d with 65ml mL of Isovue 370. Coronal/sagittal MIP reconstructions performed. 3-D reconstructions gen erated on a dedicated independent workstation. CT DLP: 425.4 mGycm Automated exposure control for dose reduction was used. FINDINGS: Neck: Borderline sized 1 cm carinal lymph node. Nonenlarged 7 mm right paratracheal lymph node. There is conventional arterial vessel branching anatomy. Both vertebral artery origins are patent. The vessels are codominant and patent throughout their cour se. The right common carotid artery is patent. There is mild eccentric plaque at the upper right carotid bulb causing mild, approximately 20% focal stenosis. The internal carotid artery is otherwise widely patent. The left common carotid artery is patent. There is minimal eccentric atherosclerotic plaque and calci fication at the upper left carotid bulb without significant stenosis. The left ICA remains patent. No prevertebral or paravertebral soft tissue abnormality seen. Head: The vertebral, basilar, and internal carotid arteries are patent. Anterior and posterior circulations are grossly unremarkable. No aneurysmal change is seen. Dural venous sinuses are patent IMPRESSION: 1. NECK: MINIMAL TO MILD ATHEROSCLEROTIC CHANGES AT THE BILATERAL PROXIMAL INTERNAL CAROTID ARTERIES. THIS RESULTS IN A MILD, 20% FOCAL STENOSIS ON THE RIGHT. NO HEMODYNAMICALLY SIGNIFICANT STENOSIS OF EITHER INTERNAL CAROTID ARTERY. 2. HEAD: NO SIGNIFICANT STENOSIS, ARTERIAL OCCLUSION, OR ANEURYSMAL CHANGE SEEN.
[2017-07-12 16:21] VITALS: BP 137/85; PULSE 71; RESP 16; TEMP 97.6
== END 2017-07-12 16:55 | disposition home or self-care (01) ==
LOC: EC 13:25
DX: R51 Headache (principal); H54.7 Unspecified visual loss; F17.200 Nicotine dependence, unspecified, uncomplicated; Z88.8 Allergy status to other drugs, medicaments and biological substances
CPT/HCPCS: 36415; 80053; 82550; 82553; 83735; 84100; 84484; 85025; 85610; 85730; 81001; 81025; 87086; 70496; 70450; 70498; 99284; 96374; 96375; 96361; J2405; Q9967; J2270

== ENCOUNTER → 2017-08-10 | Outpatient (CLI) | payer BC ==
--- NOTE | 2017-08-10 14:24 | EST ---
EXERCISE STRESS AGE: 37 SEX: F HT: 65 WT: 220 PROTOCOL: Alex STAGE: II DURATION OF EXERCISE: 7:30 HEART RATE REST: 92 BLOOD PRESSURE REST: 140/65 MAXIMUM HEART RATE ACHIEVED: 159 MAXIMUM BLOOD PRESSURE: 210/110 85% MPHR: 152 100% MPHR: 183 METS: 9.1 INDICATIONS: CP CLINICAL INFORMATION: Baseline rhythm is sinus mechanism, rate 92, normal axis and intervals. Normal echocardiogram. Baseline blood pressure 140/65 mmHg. Patient was exercised on Alex protocol for 7 minutes 30 seconds reaching peak rate of 159 beats per minute, which is equal to 86% of maximum predicted heart rate. Peak blood pressure 197/105 mmHg. Testing was terminated due to fatigue. There was no chest pain. Electrocardiographic monitoring revealed rate related left bundle branch block. CONCLUSION: 1. Decreased exercise tolerance. 2. Nondiagnostic electrocardiogram stress testing secondary to rate related left bundle branch block. 3. If clinically indicated, a pharmacological myocardial perfusion imaging will be helpful. MMODL / IJN: [id number] /
== END | disposition home or self-care (01) ==
LOC: RADNMMAIN 10:32
PROVIDERS: ATTEND Family Medicine
DX: R07.9 Chest pain, unspecified (principal); R94.31 Abnormal electrocardiogram [ECG] [EKG]
CPT/HCPCS: 93017

== ENCOUNTER → 2018-09-09 | Outpatient (CLI) | payer BC ==
[2018-09-09 11:38] LABS: HCT 45.2 % (34.0-46.0); HGB 14.8 gm/dL (11.4-16.0); MCH 29.5 pg (25.0-35.0); MCHC 32.6 g/dL (31.0-37.0); MCV 90.3 fL (80.0-100.0); Mean Platelet Volume 6.8; Platelet Count 243 k/uL (150-450); RBC 5.01 m/uL (3.80-5.40); RDW 13.8 % (11.5-15.5); WBC 7.6 k/uL (3.8-10.6)
[2018-09-09 12:04] LABS: African American GFR (CKD) >90 (>60 ml/min/1.73 sqM); Anion Gap 5 mmol/L; Blood Urea Nitrogen 13 mg/dL (7-17); Carbon Dioxide 29 mmol/L (22-30); Chloride 105 mmol/L (98-107); Glucose 127 mg/dL (74-99); Potassium 4.2 mmol/L (3.5-5.1); Sodium 139 mmol/L (137-145)
== END | disposition home or self-care (01) ==
LOC: LABWHC1 10:58
PROVIDERS: ATTEND Internal Medicine Interventional Cardiology
DX: Z01.812 Encounter for preprocedural laboratory examination (principal); R94.39 Abnormal result of other cardiovascular function study; I44.7 Left bundle-branch block, unspecified
CPT/HCPCS: 36415; 80051; 82565; 82947; 84520; 85027

== ENCOUNTER → 2018-09-16 | Day surgery (SDC) | payer BC ==
[2018-09-10 11:20] VITALS: BMI 36.1
[~2018-09-16] MED LIST: ALPRAZolam 0.25 MG TAB PO PRN; ALPRAZolam 0.5 MG TAB PO PRN; ASPIRIN 325 MG TAB PO STA; ASPIRIN 81 MG PO SCH; ATORVASTATIN 40 MG TAB PO SCH; ATORVASTATIN 80 MG TAB PO STA; HEPARIN SODIUM 1,000 UN/ML (10ML VL) ONE; IOPAMIDOL-370 125ML BTL INJ ONE; LIDOCAINE 1% INJ 10MG/ML (20 ML MDV) ONE; LIDOCAINE 1% INJ 10MG/ML (20 ML MDV) SQ ONE; METOPROLOL SUCCINATE (ER) 50 MG TAB.ER.24H PO SCH; MIDAZOLAM (PF) 2 MG/2 ML VIAL IV ONE; MONTELUKAST 10 MG TAB PO SCH; NITROGLYCERIN SL TABS 0.4 MG TAB SUBLINGUAL PRN; RX INFO: IV CONTRAST WAS GIVEN 1 EACH MISC MISCELLANE PRN; SODIUM CHLORIDE 0.9% 1,000 ML IV SCH; SODIUM CHLORIDE 0.9% 1,000 ML in EMPTY BAG 1 BAG IV ONE; VERAPAMIL 2.5 MG/ML 2 ML AMP ONE; VERAPAMIL SYRINGE (5 MG/10 ML) INTRAARTER ONE; amLODIPine 10 MG TAB PO SCH; fentaNYL (PF) 50 MCG/ML 2 ML AMP IV ONE; fentaNYL (PF) 50 MCG/ML 2 ML AMP ONE
[2018-09-16 08:45] VITALS: TEMP 98.2
[2018-09-16 10:24] VITALS: RESP 16
[2018-09-16 11:17] VITALS: BP 128/65; PULSE 58
--- NOTE | 2018-09-16 12:59 | CC ---
CARDIAC CATHETERIZATION REPORT Mrs. Easley is a 38-year-old female who has been complaining of progressive symptoms of dyspnea, has a history of hypertension, hyperlipidemia, chronic tobacco use. She underwent myocardial perfusion imaging that revealed evidence of partial reversible anterior wall defect with cardiomyopathy and intermittent left bundle branch block. In view of that, recommendation was made regarding cardiac catheterization. The procedure as well as the risks and the complications were discussed with the patient who is in full understanding and agreement. 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 Using Xylocaine anesthesia in the Seldinger technique, a 6-[place] sheath was introduced in the right radial artery. Selective right and left coronary angiography was performed using 5- [place] 3.5 bend, right and left Vianca catheter. Multiple views of the coronary artery including hemiaxial views were obtained. Following that 5-[place] tight pigtail catheter was introduced in the left ventricle and a 30-degree GAGE view of the left ventricle was obtained. Following that, catheter and sheath were removed. Hemostasis was obtained with deployment of a TR band. There was no immediate complication. Patient is returned to her room in stable condition. Of note, the patient received 5000 units of intravenous heparin as well as intra-arterial verapamil. FINDINGS: LEFT MAIN: This is a large-sized vessel bifurcating in left circumflex and left anterior descending artery. Left main coronary artery has no evidence of high-grade stenosis. LEFT ANTERIOR DESCENDING ARTERY: This is a large-sized vessel reaching toward the apex with a wraparound apex segment giving rise to a moderately sized diagonal branch in the mid segment. The left anterior descending artery at the takeoff of the first septal local tanker truck driver has an eccentric 20% plaque. The rest of the vessel has no high-grade stenosis. LEFT CIRCUMFLEX: This is a nondominant vessel giving rise to 3 obtuse marginal branches. The first one is the largest in caliber. as well as branches have no evidence of obstructive coronary artery disease. RIGHT CORONARY ARTERY: This is a dominant vessel, large in caliber bifurcating distally PDA and posterolateral segment and branches. The right coronary artery in the proximal segment has a 20% plaque. The rest of the vessel has no high-grade stenosis. LEFT VENTRICULOGRAM: Left ventriculogram was performed in 30-degree GAGE view and revealed mild global hypokinesis, ejection fraction 40% to 45%. There was no significant mitral regurgitation. HEMODYNAMICS: There was no gradient across the aortic valve. The left ventricular end- diastolic pressure was 20 mmHg. CONCLUSION: 1. Mild intimal disease involving the LAD and the right coronary artery. 2. Mildly to moderately impaired left ventricular systolic function. RECOMMENDATION: In view of finding anatomy, I recommend continue medical therapy with aggressive coronary risk modifications that have been initiated. Those findings and recommendations were discussed with the patient and her family and are in full understanding and agreement. Duration of procedure is 17 minutes. MMODL / IJN: [id number] /
== END | disposition home or self-care (01) ==
LOC: CATHCVL 07:54
PROVIDERS: ATTEND Internal Medicine Interventional Cardiology
DX: I25.10 Atherosclerotic heart disease of native coronary artery without angina pectoris (principal); I10 Essential (primary) hypertension; E78.5 Hyperlipidemia, unspecified; I44.7 Left bundle-branch block, unspecified; G47.33 Obstructive sleep apnea (adult) (pediatric); R94.39 Abnormal result of other cardiovascular function study; F17.210 Nicotine dependence, cigarettes, uncomplicated; Z88.8 Allergy status to other drugs, medicaments and biological substances; Z79.82 Long term (current) use of aspirin; Z79.899 Other long term (current) drug therapy
CPT/HCPCS: 93458; 81025; C1894; C1769; J2001; J3010; J1644; Q9967; J2250

== ENCOUNTER → 2018-12-25 | Outpatient (CLI) | payer BC ==
--- NOTE | 2018-12-26 08:05 | CT ---
EXAMINATION TYPE: CT abdomen pelvis w con DATE OF EXAM: 12/25/2018 COMPARISON: 08/24/2016 INDICATION: diverticulitis DLP: 1584.5 mGycm, Automated exposure control for dose reduction was used. CONTRAST: 100 mL of Isovue 300. Study performed with Oral Contrast TECHNIQUE: Axial images were obtained from above the diaphragm to the pubic rami in the axial plane a t 5 mm thick sections. Reconstructed images are reviewed on the computer in the coronal plane. FINDINGS: Limited CT sections are obtained the lung bases. The lung bases are clear. CT ABDOMEN: Liver: Normal Spleen: Normal Pancreas: Normal Adrenal glands: The adrenal glands are normal. Gallbladder: Normal Kidneys: No masses are evident. No hydronephrosis is present. No cysts are present. Delayed images were obtained through the kidneys, which remain unremarkable. Aorta: None Inferior vena cava: Normal. CT PELVIS: Loops of bowel within the abdomen and pelvis are normal. There are loops of bowel which are incom pletely distended or lack oral contrast limiting their evaluation. No significant contrast within the colon from the transverse to the rectum which limits this portion of bowel. No suspicious inflammato ry changes adjacent to the colon is evident. There are a few diverticuli within the sigmoid colon. Appendix: Normal as visualized. Urinary bladder: Normal. Genitourinary structures: Uterus is unremarkable. There is a 2.2 cm hypodensity in left adnexal regio n appears to be left ovarian cyst. The right adnexa appears normal. No free fluid is within the pelvi s. Osseous structures: No suspicious lytic or sclerotic lesions. IMPRESSIONS: 1. Mild diverticulosis without acute diverticulitis. 2. A 2.2 cm left adnexal cyst. This can be further evaluated with ultrasound.
== END | disposition home or self-care (01) ==
LOC: RADCTMAIN 09:24
PROVIDERS: ATTEND Surgery
DX: K57.90 Diverticulosis of intestine, part unspecified, without perforation or abscess without bleeding (principal); N85.8 Other specified noninflammatory disorders of uterus
CPT/HCPCS: 74177; Q9967 ×2

== ENCOUNTER 2019-08-19 10:39 | Observation (INO) | payer BC ==
[2019-08-19] MEDS ORDERED: NITROGLYCERIN SL TABS 0.4 MG TAB SUBLINGUAL STA (10:50)
[2019-08-19] MEDS ORDERED: ASPIRIN 81 MG PO STA (10:50)
[2019-08-19] MEDS ORDERED: MORPHINE SULFATE 2 MG/ML SYRINGE IVP STA (10:50)
[2019-08-19] MEDS ORDERED: METOPROLOL SUCCINATE (ER) 50 MG TAB.ER.24H PO STA (10:53)
[2019-08-19] MEDS ORDERED: hydrALAZINE HCL 20 MG/ML 1 ML VIAL IVP STA (10:54)
--- NOTE | 2019-08-19 11:00 | ED ---
Chest Pain HPI - General Source: patient Mode of arrival: wheelchair Limitations: no limitations <Racquel Carroll - Last Filed: 08/19/19 14:29> <RebekahDorene Carla - Last Filed: 08/23/19 00:07> - General Chief Complaint: Chest Pain Stated Complaint: abnormal EKG Time Seen by Provider: 08/19/19 10:44 - History of Present Illness Initial Comments: 39-year-old female history of hypertension, mild CAD with no intervention of the LAD, RCA currently medically managed, with Mild to moderate left sided systolic dysfunction presenting to the ER today for cc of chest pressure this AM and b/l leg swelling x 2 days. Patient states that yesterday she has noticed swelling on her ankles bilaterally. Patient states that she has never experienced this in the past. Patient denied any shortness of breath or difficulty lying flat woke up this morning with left-sided chest pressure. Patient denies any radiation she denies any sharp ripping tearing or back pain. Patient denies any jaw or arm pain. Patient denies history of cancer, unilateral leg swelling or hemoptysis. She states she did not take her BP medications this AM.Patient went to her PCP for this complaint for evaluation where EKG was obtained revealing a LBBB, patient then sent to the ER for evaluation. Patient states she has history of LBBB. Patient has no additional complaints. Upon arrival she is hypertensive. She states while EKG was being obtained that the left sided chest pressure returned. Denies being given aspirin or nitroglycerin. (Racquel Carroll) - Related Data Home Medications Medication Instructions Recorded Confirmed Atorvastatin [Lipitor] 40 mg PO DAILY 09/10/18 08/19/19 Losartan Potassium 50 mg PO DAILY 08/19/19 08/19/19 Previous Rx's Medication Instructions Recorded Aspirin 81 mg PO DAILY #30 chew 08/20/19 Carvedilol [Coreg] 3.125 mg PO BID-W/MEALS #60 tab 08/20/19 Folic Acid 1 mg PO DAILY #30 tab 08/20/19 Multivitamins, Thera [Multivitamin] 1 tab PO DAILY #30 tablet 08/20/19 Spironolactone [Aldactone] 25 mg PO DAILY #30 tablet 08/20/19 Thiamine [Vitamin B-1] 100 mg PO BID-W/MEALS #30 tab 08/20/19 Allergies Allergy/AdvReac Type Severity Reaction Status Date / Time lisinopril Allergy Anaphylaxis Verified 08/19/19 12:21 Review of Systems ROS Other: All systems not noted in ROS Statement are negative. <Racquel Carroll - Last Filed: 08/19/19 14:29> ROS Other: All systems not noted in ROS Statement are negative. <Dorene Welch Carla - Last Filed: 08/23/19 00:07> ROS Statement: Those systems with pertinent positive or pertinent negative responses have been documented in the HPI. EKG Findings - EKG Comments: EKG Findings:: Ventricular rate 91 bpm, WA interval 166 most seconds, QRS ratio 154 ms, QT/QTC 416/511 ms. This is normal sinus rhythm there is a noted left bundle-branch block which is redemonstrated from patient EKG from August 2018. No ST elevation or derpesssion noted. <Racquel Carroll - Last Filed: 08/19/19 14:29> Past Medical History Past Medical History: Hypertension Additional Past Medical History / Comment(s): ABD PAIN, POSITIVE OCCULT STOOL, STATES MAY STILL HAVE HTN, BUT NOT ON ANY MEDICATION, migraines History of Any Multi-Drug Resistant Organisms: None Reported Past Surgical History: Adenoidectomy, Heart Catheterization, Tonsillectomy Additional Past Surgical History / Comment(s): 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PLACENTA Past Anesthesia/Blood Transfusion Reactions: No Reported Reaction Past Psychological History: No Psychological Hx Reported Smoking Status: Current some day smoker Past Alcohol Use History: Heavy Past Drug Use History: None Reported - Past Family History Father Family Medical History: Cancer Additional Family Medical History / Comment(s): LEUKEMIA <Racquel Carroll - Last Filed: 08/19/19 14:29> General Exam Limitations: no limitations <Racquel Carroll - Last Filed: 08/19/19 14:29> - General Exam Comments Initial Comments: General: The patient is awake and alert, in no distress Eye: Pupils are equal, round and reactive to light, extra-ocular movements are intact. No nystagmus. There is normal conjunctiva bilaterally. No signs of icterus. Ears, nose, mouth and throat: There are moist mucous membranes and no oral lesions. Neck: The neck is supple, there is no tenderness or JVD. Cardiovascular: There is a regular rate and rhythm. No murmur, rub or gallop is appreciated. Respiratory: Lungs are clear to auscultation, respirations are non-labored, breath sounds are equal. No wheezes, stridor, rales, or rhonchi. Musculoskeletal: Normal ROM, no tenderness. Strength 5/5. Sensation intact. Pulses equal bilaterally 2+. Neurological: A&O x 3. CN II-XII intact grossly, There are no obvious motor or sensory deficits. Coordination appears grossly intact. Speech is normal. Skin: Skin is warm and dry and no rashes or lesions are noted. Swelling equal b/l noted around the ankles, no pitting edema. Psychiatric: Cooperative, appropriate mood & affect, normal judgment. (Racquel Carroll) Course Vital Signs 08/19/19 08/19/19 08/19/19 10:39 10:43 11:43 Temperature 98.1 F Pulse Rate 101 H Respiratory 18 20 20 Rate Blood Pressure 176/121 161/98 O2 Sat by Pulse 99 99 Oximetry 08/19/19 08/19/19 08/19/19 12:07 12:20 13:00 Temperature Pulse Rate Respiratory 20 20 Rate Blood Pressure 144/91 O2 Sat by Pulse 98 98 Oximetry 08/19/19 08/19/19 08/19/19 14:00 14:52 14:54 Temperature Pulse Rate 101 H 101 H Respiratory 20 20 20 Rate Blood Pressure 141/92 141/92 O2 Sat by Pulse 98 98 98 Oximetry Chest Pain MDM <Racquel Carroll - Last Filed: 08/19/19 14:29> <Dorene Welch - Last Filed: 08/23/19 00:07> - MDM 39yo female smoker, CAD, HTN. Presents for chest pressure x 1 days, legs swelling. BNP WNL. Troponin initially (-). Dimer within acceptable limits. Low suspicion for PE/DVT. Patient CXR clear. EKG redemonstrated a previous LBBB. Given patient CAD hx, sxs concerning for possible cardiac event will trend troponins and consult cardiology. [facility] physician accepted the admission and patient is agreeable to this admission and care plan. Dr. Welch agreeable to care plan and reviewed EKG. (Racquel Carroll) I was available for consultation in the emergency department. The history and physical exam were done by the midlevel provider. I was consulted for this patients care. I reviewed the case with the midlevel provider and based on their presentation of the patient, I agree with the assessment, medical decision making and plan of care as documented. Chart was dictated using [employer] dictation software. Attempts were made to correct any dictation errors however some typographical errors may persist. Patient was seen during a national state of emergency due to the Covid-19 pandemic. (Dorene Welch) Disposition Is patient prescribed a controlled substance at d/c from ED?: No Time of Disposition: 12:15 Decision to Admit Reason: Admit from EC Decision Date: 08/19/19 Decision Time: 12:15 <Racquel Carroll - Last Filed: 08/19/19 14:29> <Dorene Welch - Last Filed: 08/23/19 00:07> Clinical Impression: Chest pressure, Leg swelling Disposition: ADMITTED IP TO THIS HOSP Condition: Stable
[2019-08-19 11:24] LABS: Potassium 4.2 mmol/L (3.5-5.1)
[2019-08-19 11:25] LABS: ALT 87 U/L (4-34); AST 64 U/L (14-36); African American GFR (CKD) >90 (>60 ml/min/1.73 sqM); Alkaline Phosphatase 145 U/L (38-126); Anion Gap 8 mmol/L; Blood Urea Nitrogen 11 mg/dL (7-17); Calcium 9.2 mg/dL (8.4-10.2); Carbon Dioxide 22 mmol/L (22-30); Chloride 107 mmol/L (98-107); Glucose 109 mg/dL (74-99); Magnesium 1.7 mg/dL (1.6-2.3); Non-African American GFR(CKD) >90 (>60 ml/min/1.73 sqM); Sodium 137 mmol/L (137-145); Total Bilirubin 0.3 mg/dL (0.2-1.3); Total Protein 7.4 g/dL (6.3-8.2)
[2019-08-19 11:26] LABS: Basophils % (A) 0 %; Eosinophils # (A) 0.2 k/uL (0-0.7); Eosinophils % (A) 3 %; HCT 45.3 % (34.0-46.0); HGB 15.2 gm/dL (11.4-16.0); Lymphocytes # (A) 1.8 k/uL (1.0-4.8); Lymphocytes % (A) 28 %; MCH 30.8 pg (25.0-35.0); MCHC 33.5 g/dL (31.0-37.0); MCV 92.1 fL (80.0-100.0); Mean Platelet Volume 7.3; Monocytes # (A) 0.3 k/uL (0-1.0); Monocytes % (A) 5 %; Neutrophils # (A) 3.9 k/uL (1.3-7.7); Neutrophils % (A) 61 %; Platelet Count 233 k/uL (150-450); RBC 4.92 m/uL (3.80-5.40); RDW 13.8 % (11.5-15.5); WBC 6.4 k/uL (3.8-10.6)
--- NOTE | 2019-08-19 11:31 | XR ---
EXAMINATION TYPE: XR chest 2V DATE OF EXAM: 08/19/2019 COMPARISON: 03/10/2012 HISTORY: Chest pain TECHNIQUE: Frontal and lateral views of the chest are obtained. FINDINGS: There is no focal air space opacity, pleural effusion, or pneumothorax seen. The cardiac silhouette size is upper limits of normal size. The osseous structures are intact. IMPRESSION: No acute cardiopulmonary process.
[2019-08-19 11:36] LABS: INR 0.9 (<1.2); Partial Thromboplastin Time 22.9 sec (22.0-30.0); Prothrombin Time 9.6 sec (9.0-12.0)
[2019-08-19] MEDS ORDERED: NITROGLYCERIN SL TABS 0.4 MG TAB SUBLINGUAL PRN (12:13)
[2019-08-19] MEDS ORDERED: LORazepam 2 MG/ML INJ IV PRN ×3 (15:46)
[2019-08-19] MEDS ORDERED: PANTOPRAZOLE 40 MG/10 ML VIAL IVP ONE (16:54)
[2019-08-19] MEDS: THIAMINE 100 MG TAB PO SCH (17:12)
[2019-08-19] MEDS ORDERED: hydrALAZINE HCL 20 MG/ML 1 ML VIAL IVP PRN (20:59)
--- NOTE | 2019-08-19 23:41 | P.HPIM ---
History of Present Illness H&P Date: 08/19/19 Chief Complaint: Chest Pain Patient is a 39-year-old female with a known history of hypertension, hyperlipidemia, smoking and daily alcohol use came to ER with the complaints of chest pressure mainly around the left lower sternal border started this morning while she was starting to go to her PCPs office. Patient doing well sharp pain. Denies any radiation to the neck arm or to the back. No associated nausea vomiting or dizziness. No diaphoresis. No shortness of breath. Patient has been having swelling of the feet for the past 2 days for which patient is supposed to follow-up with her PCP. Patient had EKG obtained showing left bundle branch block at PCPs office and also she had left-sided chest pain/pressure again. Patient was sent to ER for evaluation. Patient states that she has a history of left bundle branch block. Patient had cardiac cath about 1 year ago showed mild coronary artery disease and medical management was recommended. Patient did have mild to moderate left-ventricular systolic dysfunction. Patient does drink about 12 cans of beer on daily basis. Currently everyday smoker. Chest x-ray showed no acute cardiopulmonary process EKG showed normal sinus rhythm Laboratory data showed d-dimer 0.50 AST 64 and ALT 87 and alk phos 145 Troponin x2- proBNP 174 albumin 4.0 and magnesium 1.7 all other labs within normal limits. Review of Systems Constitutional: Patient denies any fever or chills . No generalized weakness or weight loss. Abdomen: Patient denied nausea vomiting and diarrhea and abdominal pain. Cardiovascular: Patient did have Left sided chest pain. no short of breath no palpitations. Respiratory: patient denied any cough is from production. No shortness of breath Neurologic: Patient denied any numbness or tingling. Patient does have dizziness and near syncope.. Musculoskeletal: Patient denies any complaints of joint swelling or deformity. Skin: Negative Psychiatric: Negative Endocrine: No heat or cold intolerance. No recent weight gain. Genitourinary: No dysuria or hematuria. All other 14 point ROS negative except the above Past Medical History Past Medical History: Hypertension Additional Past Medical History / Comment(s): ABD PAIN, POSITIVE OCCULT STOOL, STATES MAY STILL HAVE HTN, BUT NOT ON ANY MEDICATION, migraines History of Any Multi-Drug Resistant Organisms: None Reported Past Surgical History: Adenoidectomy, Heart Catheterization, Tonsillectomy Additional Past Surgical History / Comment(s): 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PLACENTA Past Anesthesia/Blood Transfusion Reactions: No Reported Reaction Past Psychological History: No Psychological Hx Reported Smoking Status: Current some day smoker Past Alcohol Use History: Heavy Past Drug Use History: None Reported - Past Family History Father Family Medical History: Cancer Additional Family Medical History / Comment(s): LEUKEMIA Medications and Allergies Home Medications Medication Instructions Recorded Confirmed Type Atorvastatin [Lipitor] 40 mg PO DAILY 09/10/18 08/19/19 History Metoprolol Succinate (ER) [Toprol 50 mg PO DAILY 09/10/18 08/19/19 History Xl] Losartan Potassium 50 mg PO DAILY 08/19/19 08/19/19 History amLODIPine [Norvasc] 5 mg PO DAILY 08/19/19 08/19/19 History Allergies Allergy/AdvReac Type Severity Reaction Status Date / Time lisinopril Allergy Anaphylaxis Verified 08/19/19 12:21 Physical Exam Vitals: Vital Signs Temp Pulse Pulse Resp BP BP Pulse Ox 08/19/19 19:35 98.8 F 67 16 170/82 97 08/19/19 15:47 75 16 08/19/19 15:18 98.2 F 75 16 155/94 96 08/19/19 14:54 101 H 20 141/92 98 08/19/19 14:52 101 H 20 141/92 98 08/19/19 14:00 20 98 08/19/19 13:00 20 98 08/19/19 12:20 98 08/19/19 12:07 20 144/91 08/19/19 11:43 20 161/98 99 08/19/19 10:43 20 08/19/19 10:39 98.1 F 101 H 18 176/121 99 Intake and Output 08/19/19 08/19/19 08/20/19 14:59 22:59 06:59 Intake Total 780 Balance 780 Intake: Oral 780 Other: # Voids 1 Weight 105.687 kg PHYSICAL EXAMINATION: Patient is lying in the bed comfortably, no acute distress, awake alert and oriented.. HEENT: Normocephalic. Neck is supple. Pupils reactive. Nostrils clear. Oral cavity is moist. Ears reveal no drainage. Neck reveals no JVD, carotid bruits, or thyromegaly. CHEST EXAMINATION: Trachea is central. Symmetrical expansion. CTA. no wheezing. CARDIAC: Normal S1, S2 with no gallops. No murmurs ABDOMEN: Soft. Bowel sounds normal. No organomegaly. No abdominal bruits. Extremities: reveal no edema. No clubbing or cyanosis. tachycardic Neurologically awake, alert, oriented x3 with well-coordinated movements. No focal deficits noted Skin: No rash or skin lesions. Psychiatric: Coperative. Nonsuicidal Musculoskeletal: No joint swelling or deformity. Normal range of motion. Results CBC & Chem 7: 08/19/19 11:05 08/19/19 11:05 Labs: Abnormal Lab Results - Last 24 Hours (Table) 08/19/19 Range/Units 11:05 Glucose 109 H (74-99) mg/dL AST 64 H (14-36) U/L ALT 87 H (4-34) U/L Alkaline Phosphatase 145 H (38-126) U/L Thrombosis Risk Factor Assmnt - DVT/VTE Prophylaxis DVT/VTE Prophylaxis: Pharmacologic Prophylaxis ordered - Choose All That Apply Each Factor Represents 1 point: Obesity (BMI >25) Thrombosis Risk Factor Assessment Total Risk Factor Score: 1 Thrombosis Risk Factor Assessment Level: Low Risk Assessment and Plan Assessment: Left side retrosternal chest pain/atypical chest pain. Rule out ACS. Likely GI related. Bilateral feet swelling likely dependent edema. Unlikely CHF. Possible acute alcoholic gastritis Mild transaminitis/alcoholic hepatitis History of cardiac catheterization 1 year back with mild coronary artery disease Daily alcohol use Currently with a smoker Hypertension Migraine headaches DVT prophylaxis Plan: Patient will be continued on telemetry monitoring. Serial troponin x2 negative. D-dimer is not elevated. Cardiology was consulted. Patient will be started Protonix IV 40 mg daily and also monitor for alcohol withdrawal symptoms. Continue thiamine and multivitamins. Smoking cessation and alcohol abuse has been counseled extensively. Time with Patient: Greater than 30
[2019-08-20 04:10] LABS: Cholesterol 220 mg/dL (<200); HDL Cholesterol 41 mg/dL (40-60); LDL Cholesterol,Calculated 125 mg/dL (0-99); Triglycerides 270 mg/dL (<150)
[2019-08-20] MEDS ORDERED: hydrALAZINE HCL 20 MG/ML 1 ML VIAL IVP PRN (05:23)
[2019-08-20] MEDS: THIAMINE 100 MG TAB PO SCH (08:41)
[2019-08-20] MEDS ORDERED: FOLIC ACID 1 MG TAB PO SCH (09:00)
[2019-08-20] MEDS ORDERED: PANTOPRAZOLE 40 MG/10 ML VIAL IVP SCH (09:00)
[2019-08-20] MEDS ORDERED: LOSARTAN 50 MG TAB PO SCH (09:00)
[2019-08-20] MEDS ORDERED: amLODIPine 5 MG TAB PO SCH (09:00)
[2019-08-20] MEDS ORDERED: ATORVASTATIN 40 MG TAB PO SCH (09:00)
[2019-08-20] MEDS ORDERED: METOPROLOL SUCCINATE (ER) 50 MG TAB.ER.24H PO SCH (09:00)
[2019-08-20] MEDS ORDERED: ASPIRIN 325 MG TAB PO SCH (09:00)
[2019-08-20 09:47] VITALS: PULSE 89; RESP 14; TEMP 97.9
--- NOTE | 2019-08-20 12:59 | P.CRDCN ---
History of Present Illness History of present illness: Matilde Easley 39-year-old female This is Dr. Perez dictating a consult on this patient The patient was interviewed and examined by me IMPRESSION / ASSESSMENT: Chest discomfort with 2 normal chronic enzymes Daily alcohol use Left bundle branch block morphology and twelve-lead ECG, old, with a heart rate of 92 beats a minute Known cardiac myopathy, nonischemic, alcohol-related Known mild CAD Follow-up ECG shows heart rate of 62 beats a minute, narrowing of the QRS and deep T-wave inversions consistent with cardiac memory phenomena PLAN: Third troponin Repeat ECG to make sure that this ECG belongs to this patient. Repeat EKG is identical. Patient is very comfortable no chest discomfort at this time Stop amlodipine Stop metoprolol Carvedilol 3.15 mg twice daily Add spironolactone . Detailed discussion regarding alcohol cessation for improvement in LV function and better blood pressure control Watch electrolytes She may go home if she is ambulating around in the room has no symptoms and she'll see Dr. Andersen next week Complete abstinence from alcohol HPI Patient presented with chest discomfort and bilateral lower extremity swelling for the last 2 days Yesterday she noticed swelling in her ankles bilaterally ECG showed left bundle branch block pattern which is a history of a left bundle branch block pattern Upon arrival she was hypertensive While the ECG was being done in the ER her left-sided chest discomfort recurred I spoke to the patient and she had fleeting stabbing discomfort in the chest very atypical Her repeat ECG showed sinus rhythm narrow QRS T-wave inversions in the precordial leads consistent with cardiac memory She has intermittent left bundle branch block pattern Past history of hypertension dyslipidemia smoking daily alcohol use Mild coronary artery disease last year on Mild to moderate LV dysfunction She drinks 12 cans of beer on a daily basis She's an every day smoker Mildly abnormal liver function tests Troponins negative 2 Low magnesium NT proBNP 174 ROS: No fever chills or rigors, no cough, phlegm or expectoration, no nausea, vomiting or diarrhea, no hematuria, dysuria, no musculoskeletal complaints, no strokes or seizures, no skin lesions. EXAMINATION: Pulse rate in the 50s to 80s Afebrile 97.9F blood pressure 162/82 and 114/58 mmHg Elevated blood pressure trends No JVD, no lower extremity edema Normal heart sounds no murmurs or gallop Sounds are clear no rhonchi no crackles Abdomen soft REVIEW OF LABS, ECG & MEDICAL DATA Twelve-lead ECG shows sinus rhythm 91 beats a minute left bundle branch block pa ttern of QRS no definite ST segment abnormalities Normal cardiac enzymes normal D dimer Elevated triglycerides of 270, total close to 220, LDL 125 HDL 41 AST 64, ALP 87 and alkaline phosphatase 145 Hemoglobin 15 Coronary angiography last year by Dr. Andersen revealed mild intimal disease in the LAD and RCA No significant obstruction that could explain the mild to moderately impaired LV systolic function Ejection fraction 40-45% no significant MR No gradient across the aortic valve and LVEDP elevated at 20 mmHg Home medications include amlodipine 5 mg daily losartan 50 mg daily metoprolol succinate 50mg daily and atorvastatin Past Medical History Past Medical History: Hypertension Additional Past Medical History / Comment(s): ABD PAIN, POSITIVE OCCULT STOOL, STATES MAY STILL HAVE HTN, BUT NOT ON ANY MEDICATION, migraines History of Any Multi-Drug Resistant Organisms: None Reported Past Surgical History: Adenoidectomy, Heart Catheterization, Tonsillectomy Additional Past Surgical History / Comment(s): 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P LACENTA Past Anesthesia/Blood Transfusion Reactions: No Reported Reaction Past Psychological History: No Psychological Hx Reported Smoking Status: Current some day smoker Past Alcohol Use History: Heavy Past Drug Use History: None Reported - Past Family History Father Family Medical History: Cancer Additional Family Medical History / Comment(s): LEUKEMIA Medications and Allergies Home Medications Medication Instructions Recorded Confirmed Type Atorvastatin [Lipitor] 40 mg PO DAILY 09/10/18 08/19/19 History Metoprolol Succinate (ER) [Toprol 50 mg PO DAILY 09/10/18 08/19/19 History XL] Losartan Potassium 50 mg PO DAILY 08/19/19 08/19/19 History amLODIPine [Norvasc] 5 mg PO DAILY 08/19/19 08/19/19 History Aspirin 81 mg PO DAILY #30 chew 08/20/19 Rx Folic Acid 1 mg PO DAILY #30 tab 08/20/19 Rx Multivitamins, Thera [Multivitamin] 1 tab PO DAILY #30 tablet 08/20/19 Rx Thiamine [Vitamin B-1] 100 mg PO BID-W/MEALS #30 tab 08/20/19 Rx Allergies Allergy/AdvReac Type Severity Reaction Status Date / Time lisinopril Allergy Anaphylaxis Verified 08/19/19 12:21 Physical Exam Vitals: Vital Signs Temp Pulse Pulse Resp BP BP Pulse Ox 05/23/20 08:00 97.9 F 89 14 114/58 100 08/20/19 04:00 57 L 19 162/82 97 08/20/19 00:00 59 L 16 162/84 96 08/19/19 19:35 98.8 F 67 16 170/82 97 08/19/19 15:47 75 16 08/19/19 15:18 98.2 F 75 16 155/94 96 08/19/19 14:54 101 H 20 141/92 98 08/19/19 14:52 101 H 20 141/92 98 08/19/19 14:00 20 98 08/19/19 13:00 20 98 08/19/19 12:20 98 08/19/19 12:07 20 144/91 08/19/19 11:43 20 161/98 99 08/19/19 10:43 20 08/19/19 10:39 98.1 F 101 H 18 176/121 99 Intake and Output 08/19/19 08/20/19 08/20/19 22:59 06:59 14:59 Intake Total 780 240 Balance 780 240 Intake: Oral 780 240 Other: # Voids 1 2 Weight 104.4 kg Results 08/19/19 11:05 08/19/19 11:05 Cardiac Enzymes 08/19/19 08/19/19 08/19/19 Range/Units 11:05 11:05 18:10 AST 64 H (14-36) U/L Troponin I <0.012 <0.012 (0.000-0.034) ng/mL Coagulation 08/19/19 Range/Units 11:05 PT 9.6 (9.0-12.0) sec APTT 22.9 (22.0-30.0) sec Lipids 08/19/19 Range/Units 11:05 Triglycerides 270 H (<150) mg/dL Cholesterol 220 H (<200) mg/dL HDL Cholesterol 41 (40-60) mg/dL CBC 08/19/19 Range/Units 11:05 WBC 6.4 (3.8-10.6) k/uL RBC 4.92 (3.80-5.40) m/uL Hgb 15.2 (11.4-16.0) gm/dL Hct 45.3 (34.0-46.0) % Plt Count 233 (150-450) k/uL Comprehensive Metabolic Panel 08/19/19 Range/Units 11:05 Sodium 137 (137-145) mmol/L Potassium 4.2 (3.5-5.1) mmol/L Chloride 107 (98-107) mmol/L Carbon Dioxide 22 (22-30) mmol/L BUN 11 (7-17) mg/dL Creatinine 0.53 (0.52-1.04) mg/dL Glucose 109 H (74-99) mg/dL Calcium 9.2 (8.4-10.2) mg/dL AST 64 H (14-36) U/L ALT 87 H (4-34) U/L Alkaline Phosphatase 145 H (38-126) U/L Total Protein 7.4 (6.3-8.2) g/dL Albumin 4.0 (3.5-5.0) g/dL Current Medications Generic Name Dose Route Start Last Admin Trade Name Freq PRN Reason Stop Dose Admin Amlodipine Besylate 5 mg 08/20/19 09:00 08/20/19 08:41 Norvasc PO 5 mg DAILY [place] Administration Aspirin 325 mg 08/20/19 09:00 08/20/19 08:41 Aspirin PO 325 mg DAILY [place] Administration Atorvastatin Calcium 40 mg 08/20/19 09:00 08/20/19 08:41 Lipitor PO 40 mg DAILY [place] Administration Folic Acid 1 mg 08/20/19 09:00 08/20/19 08:41 Folic Acid PO 1 mg DAILY [place] Administration Hydralazine HCl 10 mg 08/20/19 05:23 Apresoline IVP 08/20/19 21:00 Q6HR PRN Blood Pressure - High Lorazepam 1 mg 08/19/19 15:46 Ativan IV Q2HR PRN CIWA 8 or 9 Lorazepam 1 mg 08/19/19 15:46 Ativan IV Q1HR PRN CIWA 10 to 15 Lorazepam 2 mg 08/19/19 15:46 Ativan IV 08/21/19 15:46 Q10M PRN CIWA 16 or higher Losartan Potassium 50 mg 08/20/19 09:00 08/20/19 08:41 Cozaar PO 50 mg DAILY [place] Administration Metoprolol Succinate 50 mg 08/20/19 09:00 08/20/19 08:42 Toprol Xl PO 50 mg DAILY [place] Administration Nitroglycerin 0.4 mg 08/19/19 12:13 Nitrostat SUBLINGUAL Q5M PRN Chest Pain Pantoprazole Sodium 40 mg 08/20/19 09:00 08/20/19 08:42 Protonix IVP 40 mg DAILY [place] Administration Thiamine HCl 100 mg 08/19/19 17:30 08/20/19 08:41 Vitamin B-1 PO 100 mg BID-W/MEALS [place] Administration Intake and Output 08/19/19 08/20/19 08/20/19 22:59 06:59 14:59 Intake Total 780 240 Balance 780 240 Intake: Oral 780 240 Other: # Voids 1 2 Weight 104.4 kg 08/19/19 11:05 08/19/19 11:05
[2019-08-20 15:16] VITALS: BP 115/62
--- NOTE | 2019-08-21 | DS ---
DISCHARGE SUMMARY I am covering for Dr. Leonardo Roque. DATE OF SERVICE: 08/20/2019 FINAL DIAGNOSES: 1. Left-sided chest pain, myocardial infarction ruled out. 2. Bilateral feet swelling, unlikely congestive heart failure. 3. Possible acute alcoholic gastritis. 4. Mild transaminitis, possible alcoholic hepatitis. 5. History of cardiac catheterization 1 year back with mild coronary artery disease. 6. Hypertension. 7. History of migraine attacks. 8. Deep vein thrombosis prophylaxis. 9. Hyperlipidemia. DISCHARGE DISPOSITION: The patient will be discharged in stable condition with guarded prognosis. Discharge cleared by Cardiology. HISTORY OF PRESENT ILLNESS: This 39-year-old woman with a past medical history of multiple medical problems, being followed by Dr. Sparkle Harris in the outpatient setting, was admitted with chest pain. Myocardial infarction ruled out. Cardiology saw the patient. There was no evidence of CHF and Cardiology made adjustments to medications. The lab locke AST/ALT was mildly elevated 6487. Triglycerides 270 and cholesterol is 220 and LDL is 125. Recommend outpatient followup and evaluation also. On exam, vitals are stable. CARDIOVASCULAR SYSTEM: S1, S2. Abdomen soft. Central nervous system: No focal deficits. The patient being discharged with the following advice and medications: Please note the change in medications requested by Cardiology. DISCHARGE ADVICE AND MEDICATIONS: 1. Diet is cardiac diet. 2. Activity limited until followup. 3. Follow up with Dr. Harris in 2-3 days. 4. Follow up with Dr. Andersen as recommended. DISCHARGE MEDICATIONS: 1. Lipitor 40 mg p.o. daily. 2. Losartan 50 mg p.o. daily. 3. Aldactone 25 mg p.o. daily. 4. Aspirin 81 mg p.o. daily. 5. Coreg 3.125 mg p.o. b.i.d. 6. Folic acid 1 mg daily. 7. Multivitamins 1 p.o. daily. 8. Thiamine 100 mg p.o. b.i.d. 9. No EtOH. MMODL / IJN: [id number] /
[2019-08-21] MEDS ORDERED: CARVEDILOL 3.125 MG TAB PO SCH (07:30)
[2019-08-21] MEDS ORDERED: ASPIRIN 81 MG PO SCH (09:00)
[2019-08-21] MEDS ORDERED: hydrALAZINE HCL 25 MG TAB PO SCH (09:00)
--- NOTE | 2019-08-21 14:00 | ECHOF ---
Referral Reason:Chest pain, cardiac myopathy MEASUREMENTS -------- HEIGHT: 165.1 cm WEIGHT: 104.3 kg BP: 114/58 IVSd: 1.2 cm (0.6 - 1.1) LVIDd: 5.7 cm (3.9 - 5.3) LVPWd: 1.4 cm (0.6 - 1.1) IVSs: 1.8 cm LVIDs: 4.5 cm LVPWs: 1.7 cm RVIDd: 2.9 cm (< 3.3) LAESV Index (A-L): 29.75 ml/m Ao Diam: 2.8 cm (2.0 - 3.7) AV Cusp: 1.8 cm (1.5 - 2.6) EPSS: 1.0 cm MV E David: 1.02 m/s MV DecT: 147 ms MV A David: 0.83 m/s MV E/A Ratio: 1.23 RAP: 5.00 mmHg RVSP: 33.70 mmHg MV EF SLOPE: 88.66 mm/s (70 - 150) MV EXCURSION: 15.97 mm (> 18.000) FINDINGS -------- Resting bradycardia (HR<60bpm). This was a technically difficult study with suboptimal apical views. The left ventricle is mildly dilated. There is mild concentric left ventricular hypertrophy. Over all left ventricular systolic function is mildly impaired with, an EF between 45 - 50 %. The right ventricle is normal in size. LA is midly dilated 29-33ml/m2. The right atrium was not well visualized. 5.0mg of Lumason was utilized for enhancement of images Interatrial and interventricular septum intact. The aortic valve was not well visualized. There is no evidence of aortic regurgitation. There is no evidence of aortic stenosis. Mild mitral regurgitation is present. Mild tricuspid regurgitation present. There is mild pulmonary hypertension. The right ventricular systolic pressure, as measured by Doppler, is 33.70mmHg. There is no pulmonic regurgitation present. The aortic root size is normal. IVC Not well visulized. There is no pericardial effusion. CONCLUSIONS -------- 1. Resting bradycardia (HR<60bpm). 2. This was a technically difficult study with suboptimal apical views. 3. The left ventricle is mildly dilated. 4. There is mild concentric left ventricular hypertrophy. 5. Overall left ventricular systolic function is mildly impaired with, an EF between 45 - 50 %. 6. The right ventricle is normal in size. 7. LA is midly dilated 29-33ml/m2. 8. The right atrium was not well visualized. 9. 5.0mg of Lumason was utilized for enhancement of images 10. Interatrial and interventricular septum intact. 11. The aortic valve was not well visualized. 12. There is no evidence of aortic regurgitation. 13. There is no evidence of aortic stenosis. 14. Mild mitral regurgitation is present. 15. Mild tricuspid regurgitation present. 16. There is mild pulmonary hypertension. 17. The right ventricular systolic pressure, as measured by Doppler, is 33.70mmHg. 18. There is no pulmonic regurgitation present. 19. The aortic root size is normal. 20. IVC Not well visulized. 21. There is no pericardial effusion. AFTER SCHOOL COUNSELOR: Nathaly Garza RDCS
== END 2019-08-20 17:12 | disposition home or self-care (01) ==
LOC: EC 10:39 → 3SCARD 13:15
PROVIDERS: ADMIT Family Medicine; ATTEND Family Medicine
DX: R07.89 Other chest pain (principal); R60.9 Edema, unspecified; E78.5 Hyperlipidemia, unspecified; F10.10 Alcohol abuse, uncomplicated; Z71.6 Tobacco abuse counseling; Z71.41 Alcohol abuse counseling and surveillance of alcoholic; F17.200 Nicotine dependence, unspecified, uncomplicated; G43.909 Migraine, unspecified, not intractable, without status migrainosus; I42.6 Alcoholic cardiomyopathy; I10 Essential (primary) hypertension; I25.10 Atherosclerotic heart disease of native coronary artery without angina pectoris; I44.7 Left bundle-branch block, unspecified; Z79.82 Long term (current) use of aspirin; Z79.899 Other long term (current) drug therapy; Z80.6 Family history of leukemia; R74.0 Nonspecific elevation of levels of transaminase and lactic acid dehydrogenase [LDH]; Z03.818 Encounter for observation for suspected exposure to other biological agents ruled out
CPT/HCPCS: 96376; 96375 ×2; 93005 ×2; 96374; 99285; 36415; 93306; 85379; 83880; 80061; 80053; 83735; 84484 ×2; 85025; 85610; 85730; 87635; 71046; G0378 ×2; J0360; J2270; C9113 ×2; Q9950

== ENCOUNTER 2019-10-27 00:24 | Emergency (ER) | payer BC ==
[2019-10-27] MEDS ORDERED: ONDANSETRON 4 MG/2 ML VIAL IVP STA (00:41)
[2019-10-27] MEDS ORDERED: HYDROmorphone 0.5 MG/0.5 ML SYRINGE IVP STA (00:41)
[2019-10-27] MEDS ORDERED: SODIUM CHLORIDE 0.9% 1,000 ML IV STA (00:41)
[2019-10-27 01:00] LABS: Appearance,Urine Clear (Clear); Bilirubin,Urine Negative (Negative); Blood,Urine Negative (Negative); Color,Urine Yellow; Glucose,Urine (UA) Negative (Negative); Ketones,Urine Negative (Negative); Leukocyte Esterase,Urine Moderate (Negative); Mucus,Urine Occasional /hpf; Nitrite,Urine Negative (Negative); Protein,Urine 3+ (Negative); RBC,Urine 1 /hpf (0-5); Specific Gravity,Urine 1.024 (1.001-1.035); Squamous Epithelial Cell,Urine 5 /hpf (0-4); WBC,Urine 7 /hpf (0-5)
[2019-10-27 01:10] LABS: Basophils % (A) 0 %; Eosinophils # (A) 0.2 k/uL (0-0.7); Eosinophils % (A) 2 %; HCT 40.9 % (34.0-46.0); Lymphocytes # (A) 2.2 k/uL (1.0-4.8); Lymphocytes % (A) 18 %; MCH 29.6 pg (25.0-35.0); MCHC 31.9 g/dL (31.0-37.0); MCV 92.9 fL (80.0-100.0); Mean Platelet Volume 7.5; Monocytes # (A) 0.5 k/uL (0-1.0); Monocytes % (A) 4 %; Neutrophils # (A) 9.1 k/uL (1.3-7.7); Neutrophils % (A) 74 %; Platelet Count 213 k/uL (150-450); RDW 14.1 % (11.5-15.5); WBC 12.3 k/uL (3.8-10.6)
--- NOTE | 2019-10-27 01:26 | ED ---
Abdominal Pain HPI - General Chief Complaint: Abdominal Pain Stated Complaint: Abdominal Pain Time Seen by Provider: 10/27/19 00:35 Source: patient Mode of arrival: ambulatory - History of Present Illness Initial Comments: 39-year-old female patient presents to the emergency department today for evaluation of suprapubic abdominal pain. Pain started last night but worsened significantly today. Patient states pain is deep and intense. She denies radiation of the pain through to her back. States she has had some nausea today but no vomiting. States she did have elevated temperature at home around 100F. Patient states that she has had diverticulitis in the past but this feels different. She denies any surgeries to the abdomen. Denies constipation or diarrhea. States she does feel like it is more difficult to urinate today. Denies hematuria or dysuria. Denies chance of . Last period was 3 weeks ago. She denies abnormal vaginal bleeding or discharge. Patient denies any recent rash, cough, shortness of breath, chest pain, numbness, tingling, dizziness, weakness, headache, visual changes, or any other complaints. - Related Data Home Medications Medication Instructions Recorded Confirmed Atorvastatin [Lipitor] 40 mg PO DAILY 09/10/18 08/19/19 Losartan Potassium 50 mg PO DAILY 08/19/19 08/19/19 Previous Rx's Medication Instructions Recorded Aspirin 81 mg PO DAILY #30 chew 08/20/19 Folic Acid 1 mg PO DAILY #30 tab 08/20/19 Multivitamins, Thera [Multivitamin] 1 tab PO DAILY #30 tablet 08/20/19 Spironolactone [Aldactone] 25 mg PO DAILY #30 tablet 08/20/19 Thiamine [Vitamin B-1] 100 mg PO BID-W/MEALS #30 tab 08/20/19 carvediloL [Coreg] 3.125 mg PO BID-W/MEALS #60 tab 08/20/19 Amoxic-Pot Clav 875-125Mg 1 tab PO Q12HR #20 tablet 10/27/19 [Augmentin 875-125] Allergies Allergy/AdvReac Type Severity Reaction Status Date / Time lisinopril Allergy Anaphylaxis Verified 10/27/19 00:31 Review of Systems ROS Statement: Those systems with pertinent positive or pertinent negative responses have been documented in the HPI. ROS Other: All systems not noted in ROS Statement are negative. Past Medical History Past Medical History: Hypertension Additional Past Medical History / Comment(s): ABD PAIN, POSITIVE OCCULT STOOL, STATES MAY STILL HAVE HTN, BUT NOT ON ANY MEDICATION, migraines History of Any Multi-Drug Resistant Organisms: None Reported Past Surgical History: Adenoidectomy, Heart Catheterization, Tonsillectomy Additional Past Surgical History / Comment(s): 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PLACENTA Past Anesthesia/Blood Transfusion Reactions: No Reported Reaction Past Psychological History: No Psychological Hx Reported Smoking Status: Current every day smoker Past Alcohol Use History: Heavy Past Drug Use History: None Reported - Past Family History Father Family Medical History: Cancer Additional Family Medical History / Comment(s): LEUKEMIA General Exam General appearance: alert, in no apparent distress, other (This is a well- developed, well-nourished adult female patient in no acute distress. Vital signs upon presentation are temperature 98.4F, pulse 110, respirations 17, blood pressure 188/104, pulse ox 96% on room air.) Respiratory exam: Present: normal lung sounds bilaterally. Absent: respiratory distress, wheezes, rales, rhonchi, stridor Cardiovascular Exam: Present: regular rate, normal rhythm, normal heart sounds. Absent: systolic murmur, diastolic murmur, rubs, gallop, clicks GI/Abdominal exam: Present: soft, tenderness (Mild suprapubic), normal bowel s ounds. Absent: distended, guarding, rebound, rigid Neurological exam: Present: alert, oriented X3, CN II-XII intact Psychiatric exam: Present: normal affect, normal mood Skin exam: Present: warm, dry, intact, normal color. Absent: rash Course Vital Signs 10/27/19 10/27/19 00:27 01:05 Temperature 98.4 F 99.1 F Pulse Rate 110 H Respiratory 17 Rate Blood Pressure 188/104 O2 Sat by Pulse 96 Oximetry Medical Decision Making - Medical Decision Making 39-year-old female patient presents to the emergency department today for evaluation of suprapubic abdominal pain. Patient does have history of dive rticulitis. Physical examination did reveal suprapubic tenderness. Show mild elevation in temperature 99.5F oral. She does report nausea. Labs reviewed and did reveal mildly elevated white blood cell count at 12,000. Mildly elevated liver enzymes. CT abdomen and pelvis was obtained with contrast which did show sigmoid diverticulitis. There is no evidence for abscess. Patient will be started on Augmentin and discharged home. We did discuss risk of abscess formation and return parameters. She is instructed to follow-up with her primary care physician and her surgeon Dr. Reid for further evaluation as soon as possible. Return parameters were discussed in detail. She verbalizes understanding and agrees with this plan. - Lab Data Result diagrams: 10/27/19 00:44 10/27/19 00:44 Lab Results 10/27/19 10/27/19 10/27/19 Range/Units 00:44 00:44 00:44 WBC 12.3 H (3.8-10.6) k/uL RBC 4.40 (3.80-5.40) m/uL Hgb 13.0 (11.4-16.0) gm/dL Hct 40.9 (34.0-46.0) % MCV 92.9 (80.0-100.0) fL MCH 29.6 (25.0-35.0) pg MCHC 31.9 (31.0-37.0) g/dL RDW 14.1 (11.5-15.5) % Plt Count 213 (150-450) k/uL Neutrophils % 74 % Lymphocytes % 18 % Monocytes % 4 % Eosinophils % 2 % Basophils % 0 % Neutrophils # 9.1 H (1.3-7.7) k/uL Lymphocytes # 2.2 (1.0-4.8) k/uL Monocytes # 0.5 (0-1.0) k/uL Eosinophils # 0.2 (0-0.7) k/uL Basophils # 0.0 (0-0.2) k/uL Sodium 135 L (137-145) mmol/L Potassium 3.9 (3.5-5.1) mmol/L Chloride 105 (98-107) mmol/L Carbon Dioxide 23 (22-30) mmol/L Anion Gap 7 mmol/L BUN 11 (7-17) mg/dL Creatinine 0.52 (0.52-1.04) mg/dL Est GFR (CKD-EPI)AfAm >90 (>60 ml/min/1.73 sqM) Est GFR (CKD-EPI)NonAf >90 (>60 ml/min/1.73 sqM) Glucose 122 H (74-99) mg/dL Plasma Lactic Acid Elmer (0.7-2.0) mmol/L Calcium 9.3 (8.4-10.2) mg/dL Total Bilirubin 0.7 (0.2-1.3) mg/dL AST 50 H (14-36) U/L ALT 69 H (4-34) U/L Alkaline Phosphatase 133 H (38-126) U/L Total Protein 6.8 (6.3-8.2) g/dL Albumin 3.8 (3.5-5.0) g/dL Amylase <30 L (30-110) U/L Lipase 82 (23-300) U/L Urine Color Yellow Urine Appearance Clear (Clear) Urine pH 6.0 (5.0-8.0) Ur Specific [place] 1.024 (1.001-1.035) Urine Protein 3+ H (Negative) Urine Glucose (UA) Negative (Negative) Urine Ketones Negative (Negative) Urine Blood Negative (Negative) Urine Nitrite Negative (Negative) Urine Bilirubin Negative (Negative) Urine Urobilinogen 2.0 (<2.0) mg/dL Ur Leukocyte Esterase Moderate H (Negative) Urine RBC 1 (0-5) /hpf Urine WBC 7 H (0-5) /hpf Ur Squamous Epith Cells 5 H (0-4) /hpf Urine Mucus Occasional H (None) /hpf 10/27/19 Range/Units 00:44 WBC (3.8-10.6) k/uL RBC (3.80-5.40) m/uL Hgb (11.4-16.0) gm/dL Hct (34.0-46.0) % MCV (80.0-100.0) fL MCH (25.0-35.0) pg MCHC (31.0-37.0) g/dL RDW (11.5-15.5) % Plt Count (150-450) k/uL Neutrophils % % Lymphocytes % % Monocytes % % Eosinophils % % Basophils % % Neutrophils # (1.3-7.7) k/uL Lymphocytes # (1.0-4.8) k/uL Monocytes # (0-1.0) k/uL Eosinophils # (0-0.7) k/uL Basophils # (0-0.2) k/uL Sodium (137-145) mmol/L Potassium (3.5-5.1) mmol/L Chloride (98-107) mmol/L Carbon Dioxide (22-30) mmol/L Anion Gap mmol/L BUN (7-17) mg/dL Creatinine (0.52-1.04) mg/dL Est GFR (CKD-EPI)AfAm (>60 ml/min/1.73 sqM) Est GFR (CKD-EPI)NonAf (>60 ml/min/1.73 sqM) Glucose (74-99) mg/dL Plasma Lactic Acid Elmer 1.5 (0.7-2.0) mmol/L Calcium (8.4-10.2) mg/dL Total Bilirubin (0.2-1.3) mg/dL AST (14-36) U/L ALT (4-34) U/L Alkaline Phosphatase (38-126) U/L Total Protein (6.3-8.2) g/dL Albumin (3.5-5.0) g/dL Amylase (30-110) U/L Lipase (23-300) U/L Urine Color Urine Appearance (Clear) Urine pH (5.0-8.0) Ur Specific [place] (1.001-1.035) Urine Protein (Negative) Urine Glucose (UA) (Negative) Urine Ketones (Negative) Urine Blood (Negative) Urine Nitrite (Negative) Urine Bilirubin (Negative) Urine Urobilinogen (<2.0) mg/dL Ur Leukocyte Esterase (Negative) Urine RBC (0-5) /hpf Urine WBC (0-5) /hpf Ur Squamous Epith Cells (0-4) /hpf Urine Mucus (None) /hpf - Radiology Data Radiology results: report reviewed, image reviewed CT abdomen and pelvis is obtained. Report is reviewed in its entirety. Im pression by Dr. Sena shows inflammatory changes with fat stranding and pelvic fluid consistent with diverticulitis of the mid sigmoid colon. There is a 9 center segment of involvement. Abdomen abnormality appears new compared to old exam. Normal appendix. Disposition Clinical Impression: Sigmoid diverticulitis Disposition: HOME SELF-CARE Condition: Good Instructions (If sedation given, give patient instructions): Diverticulitis (ED), Diverticulitis Diet (ED) Additional Instructions: Complete antibiotic prescription in full. Take pain medication as needed. Follow-up with Dr. Waldron as needed. Follow up with your primary care physician for recheck in 1-2 days. Return to the emergency department immediately for any new, worsening, or concerning symptoms Prescriptions: Amoxic-Pot Clav 875-125Mg [Augmentin 875-125] 1 tab PO Q12HR #20 tablet Is patient prescribed a controlled substance at d/c from ED?: No Referrals: Sparkle Harris DO [Primary Care Provider] - 1-2 days Roland Waldron MD [Medical Doctor] - 1-2 days
[2019-10-27 01:31] LABS: ALT 69 U/L (4-34); AST 50 U/L (14-36); African American GFR (CKD) >90 (>60 ml/min/1.73 sqM); Albumin 3.8 g/dL (3.5-5.0); Alkaline Phosphatase 133 U/L (38-126); Amylase <30 U/L (30-110); Anion Gap 7 mmol/L; Blood Urea Nitrogen 11 mg/dL (7-17); Calcium 9.3 mg/dL (8.4-10.2); Carbon Dioxide 23 mmol/L (22-30); Chloride 105 mmol/L (98-107); Glucose 122 mg/dL (74-99); Non-African American GFR(CKD) >90 (>60 ml/min/1.73 sqM); Potassium 3.9 mmol/L (3.5-5.1); Sodium 135 mmol/L (137-145); Total Bilirubin 0.7 mg/dL (0.2-1.3); Total Protein 6.8 g/dL (6.3-8.2)
--- NOTE | 2019-10-27 01:41 | CT ---
EXAMINATION TYPE: CT abdomen pelvis w con DATE OF EXAM: 10/27/2019 COMPARISON: 12/25/2018 HISTORY: Abd pain with fever CT DLP: 1677.2 mGycm Automated exposure control for dose reduction was used. CONTRAST: Performed with IV Contrast, patient injected with 100 mL of Isovue 300. Multiple axial sections were obtained from the level of the diaphragm to the floor the pelvis with IV contrast Isovue 100 mL. FINDINGS: The lung bases are clear of infiltrate. There is subsegmental atelectasis right lung base. Heart appe ars normal. Liver spleen pancreas gallbladder appear normal. Bile ducts are not dilated. Stomach appears normal. There is no adrenal mass. Kidneys show satisfactory contrast opacification. There is no hydronephrosi s. Ureters are not dilated. Delayed images show normal renal excretion. There is no retroperitoneal a denopathy. The appendix is posterior and lateral and appears normal. Bladder distends smoothly. There is no inguinal hernia. Uterus is anteverted. There is mild free fluid in the pelvis. There is fat stranding and wall thickening involving the MID sigmoid colon. There are multiple sigmoid diverticula. I see no evidence of free air. There is no sign of a bowel obstruction. There is no ascites. Lumbar vertebra have normal alignment. Posterior elements are intact. Disc spaces are fairly normal. The bony pelvis appears intact. IMPRESSION: Inflammatory changes with fat stranding and pelvic fluid consistent with diverticulitis of the mid si gmoid colon. There is a 9 cm segment of involvement. Abnormality appears new compared to old exam. Normal appendix.
[2019-10-27] MEDS ORDERED: ACET/COD 300 MG/30 MG STARTER PACK 6 TAB BTL PO STA (01:50)
[2019-10-27] MEDS ORDERED: AMOXIC-POT CLAV 875MG STARTER PACK 2 TAB BTL PO STA (01:50)
[2019-10-27 02:07] VITALS: BP 155/96; PULSE 96; RESP 16; TEMP 98.2
== END 2019-10-27 02:02 | disposition home or self-care (01) ==
LOC: EC 00:24
DX: K57.32 Diverticulitis of large intestine without perforation or abscess without bleeding (principal); D72.829 Elevated white blood cell count, unspecified; I10 Essential (primary) hypertension; F17.200 Nicotine dependence, unspecified, uncomplicated; Z95.818 Presence of other cardiac implants and grafts; Z79.899 Other long term (current) drug therapy; Z88.8 Allergy status to other drugs, medicaments and biological substances
CPT/HCPCS: 36415; 80053; 82150; 83605; 83690; 85025; 81001; 74177; 99284; 96374; 96375; 96361; J2405; J1170; Q9967

== ENCOUNTER → 2023-02-04 | Outpatient (CLI) | payer BC ==
--- NOTE | 2023-02-04 10:22 | CT ---
EXAMINATION TYPE: CT abdomen pelvis w con CT DLP: 1312.70 mGycm, Automated exposure control for dose reduction was used. DATE OF EXAM: 02/04/2023 10:11 AM COMPARISON: CT abdomen pelvis most recent from 10/27/2019 CLINICAL INDICATION:Female, 42 years old with history of R10.9 UNSPECIFIED ABDOMINAL PAIN; Unspecifie d abdominal pain TECHNIQUE: Standard CT of the abdomen and pelvis following the administration of 100 cc of Isovue 3 00 IV contrast material. Coronal and sagittal reformats were performed. FINDINGS: LOWER CHEST: Unremarkable ABDOMEN LIVER: Unremarkable GALLBLADDER AND BILE DUCTS: Unremarkable. PANCREAS: Unremarkable. SPLEEN: Unremarkable. ADRENAL GLANDS: Unremarkable. KIDNEYS AND URETERS: No evidence of hydronephrosis or renal calculus. The kidneys enhance symmetrical ly. Contrast is demonstrated within both collecting systems on the delayed phase. PELVIS BLADDER: Under distended, limiting evaluation. REPRODUCTIVE: Likely corpus luteum within the right ovary. Likely left ovarian 2.4 cm cyst with surro unding calcification. ABDOMEN & PELVIS STOMACH AND BOWEL: Small hiatal hernia, duodenum is unremarkable. Distal scattered sigmoid colonic di verticulosis. Circumferential wall thickening of the sigmoid colon redemonstrated. No evidence of bow el obstruction. The appendix is within normal limits. PERITONEUM: No evidence of pneumoperitoneum or free fluid. VASCULATURE: No evidence of aortic aneurysm. MUSCULOSKELETAL: No acute osseous abnormalities LYMPH NODES: No gross evidence for lymphadenopathy. SOFT TISSUE/ABDOMINAL WALL: Unremarkable IMPRESSION: 1. No acute abdominal/pelvic process. 2. Chronic sigmoid diverticular changes. 3. Likely left ovarian 2.4 cm cyst with surrounding calcification. Consider further evaluation with p elvic ultrasound.
== END | disposition home or self-care (01) ==
LOC: RADCTMAIN 09:33
PROVIDERS: ATTEND Family Medicine
DX: R10.9 Unspecified abdominal pain (principal)
CPT/HCPCS: 74177; Q9967

== ENCOUNTER → 2023-03-16 | Outpatient (CLI) | payer BC ==
--- NOTE | 2023-03-17 12:08 | US ---
EXAMINATION TYPE: US pelvis complete transvag DATE OF EXAM: 03/16/2023 COMPARISON: CT 02/04/2023 CLINICAL INDICATION: Female, 42 years old with history of N83.202 UNSPECIFIED OVARIAN CYST, LEFT SIDE ; Left ovarian cyst visualized on prior CT TECHNIQUE: Transvaginal (TV) and Transabdominal (TA) . Transabdominal sonographic images of the pel vis were acquired. Transvaginal sonographic images were medically necessary to better assess the fol lowing anatomy: Ordered per physician Date of LMP: 03/14/2023 EXAM MEASUREMENTS: Uterus: 9.7 x 4.9 x 6.1 cm Endometrial Stripe: 0.7 cm Right Ovary: 3.3 x 2.3 x 1.9 cm Left Ovary: 3.9 x 2.5 x 2.4 cm 1. Uterus: Anteverted wnl 2. Endometrium: wnl 3. Right Ovary: wnl 4. Left Ovary: Within normal limits 5. Bilateral Adnexa: wnl 6. Posterior cul-de-sac: wnl IMPRESSION: 1. No apparent left ovarian cyst by ultrasound. Recommend short interval follow-up CT to exclude any chronic complication of diverticulitis such as a chronic intramural abscess or chronic contained leak . 2. No specific abnormality on pelvic ultrasound.
== END | disposition home or self-care (01) ==
LOC: RADUSWWP 15:28
PROVIDERS: ATTEND Family Medicine
DX: N83.202 Unspecified ovarian cyst, left side (principal); R10.9 Unspecified abdominal pain
CPT/HCPCS: 76830; 76856

== ENCOUNTER 2023-03-17 07:34 | Day surgery (SDC) | payer BC ==
[~2023-03-17 07:34] MED LIST changes: -ALPRAZolam 0.25 MG TAB PO PRN; -ALPRAZolam 0.5 MG TAB PO PRN; -ASPIRIN 325 MG TAB PO STA; -ASPIRIN 81 MG PO SCH; -ATORVASTATIN 40 MG TAB PO SCH; -ATORVASTATIN 80 MG TAB PO STA; -HEPARIN SODIUM 1,000 UN/ML (10ML VL) ONE; -IOPAMIDOL-370 125ML BTL INJ ONE; +LIDOCAINE 1% (10MG/ML) FOR IV START INTRADERMA PRN; -LIDOCAINE 1% INJ 10MG/ML (20 ML MDV) ONE; -LIDOCAINE 1% INJ 10MG/ML (20 ML MDV) SQ ONE; -METOPROLOL SUCCINATE (ER) 50 MG TAB.ER.24H PO SCH; -MIDAZOLAM (PF) 2 MG/2 ML VIAL IV ONE; -MONTELUKAST 10 MG TAB PO SCH; -NITROGLYCERIN SL TABS 0.4 MG TAB SUBLINGUAL PRN; -RX INFO: IV CONTRAST WAS GIVEN 1 EACH MISC MISCELLANE PRN; -SODIUM CHLORIDE 0.9% 1,000 ML IV SCH; -SODIUM CHLORIDE 0.9% 1,000 ML in EMPTY BAG 1 BAG IV ONE; -VERAPAMIL 2.5 MG/ML 2 ML AMP ONE; -VERAPAMIL SYRINGE (5 MG/10 ML) INTRAARTER ONE; -amLODIPine 10 MG TAB PO SCH; -fentaNYL (PF) 50 MCG/ML 2 ML AMP IV ONE; -fentaNYL (PF) 50 MCG/ML 2 ML AMP ONE
[2023-03-17] MEDS: LACTATED RINGERS 1,000 ML IV SCH ×2 (08:06→08:36)
[2023-03-17 08:19] VITALS: TEMP 96.8
[2023-03-17] MEDS ORDERED: PROPOFOL 10 MG/ML 20 ML VIAL IV ONE (08:38)
--- NOTE | 2023-03-17 08:41 | P.GSHP ---
History of Present Illness H&P Date: 03/17/23 Chief Complaint: Rectal bleeding 42-year-old female here for colonoscopy. Had rectal bleeding lasting for about 1 week in December. She had a CAT scan January because of lower abdominal pains showing chronic diverticular change and a left ovarian cyst. No family history of colon cancer. She had previous history of colitis unspecified type 10 or more years ago. Last colonoscopy 8 years ago. Past Medical History Past Medical History: Hypertension Additional Past Medical History / Comment(s): ABD PAIN, POSITIVE OCCULT STOOL, migraines History of Any Multi-Drug Resistant Organisms: None Reported Past Surgical History: Adenoidectomy, Heart Catheterization, Orthopedic Surgery, Tonsillectomy Additional Past Surgical History / Comment(s): 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PLACENTA, trigger finger and cyst removed Past Anesthesia/Blood Transfusion Reactions: No Reported Reaction Smoking Status: Current every day smoker - Past Family History Father Family Medical History: Cancer Additional Family Medical History / Comment(s): LEUKEMIA Medications and Allergies Home Medications Medication Instructions Recorded Confirmed Type Losartan Potassium 50 mg PO DAILY 08/19/19 03/17/23 History Spironolactone [Aldactone] 25 mg PO DAILY #30 tablet 08/20/19 03/17/23 Rx Thiamine [Vitamin B-1] 100 mg PO BID-W/MEALS #30 tab 08/20/19 03/17/23 Rx carvediloL [Coreg] 3.125 mg PO BID-W/MEALS #60 tab 08/20/19 03/17/23 Rx Allergies Allergy/AdvReac Type Severity Reaction Status Date / Time lisinopril Allergy Anaphylaxis Verified 03/17/23 07:55 Surgical - Exam Vital Signs Temp Pulse Resp BP Pulse Ox 96.8 F L 80 16 155/88 95 03/17/23 08:02 03/17/23 08:02 03/17/23 08:02 03/17/23 08:02 03/17/23 08:02 Physical exam: General: Well-developed, well-nourished HEENT: Normocephalic, sclerae nonicteric Abdomen: Nontender, nondistended Extremities: No edema Neuro: Alert and oriented Assessment and Plan (1) Rectal bleeding Narrative/Plan: Will proceed with colonoscopy at this time. Current Visit: Yes Status: Acute Code(s): K62.5 - HEMORRHAGE OF ANUS AND RECTUM SNOMED Code(s): 13969542
--- NOTE | 2023-03-17 08:58 | P.PCN ---
Date of Procedure: 03/17/23 Procedure(s) Performed: PREOPERATIVE DIAGNOSIS: Rectal bleeding POSTOPERATIVE DIAGNOSIS: Rectal polyp, diverticulosis PROCEDURE: Colonoscopy with snare polypectomy ANESTHESIA: MAC SURGEON: Roland Waldron M.D. SPECIMENS: Polyp ENDOSCOPIC PROCEDURE: The patient was placed on the endoscopy table in the left decubitus position. The Olympus colonoscope was inserted into the anus and passed under direct visualization to the base of the cecum. The appendiceal orifice was visualized. From that point the scope was slowly withdrawn inspecting all surfaces carefully. There were no neoplastic inflammatory or polypoid lesions throughout the cecum, ascending, transverse, descending, and sigmoid colon. In the rectum a small polyp was seen and removed using a snare cautery technique. The remainder of the rectum was normal. The patient had sigmoid diverticulosis with some stiffness of the sigmoid colon and relative loss of distensibility consistent with likely chronic sigmoid diverticulitis. Digital rectal examination was normal. The patient was taken to the recovery room in stable condition per anesthesia guidelines. RECOMMENDATIONS: Await biopsy results. Will contact patient with timing for next colonoscopy.
[2023-03-17 09:35] VITALS: BP 142/90; PULSE 78; RESP 16
== END 2023-03-17 09:51 | disposition home or self-care (01) ==
LOC: ORWHC2ENDO 07:34
PROVIDERS: ATTEND Surgery
DX: K62.1 Rectal polyp (principal); K57.30 Diverticulosis of large intestine without perforation or abscess without bleeding; I10 Essential (primary) hypertension; F17.200 Nicotine dependence, unspecified, uncomplicated; Z88.8 Allergy status to other drugs, medicaments and biological substances; Z79.899 Other long term (current) drug therapy
CPT/HCPCS: 81025; 88305; 45385; J2704

== ENCOUNTER 2023-05-12 18:04 | Observation (INO) | payer BC ==
--- NOTE | 2023-05-12 19:00 | ED ---
General Adult HPI - General Chief complaint: Chest Pain Stated complaint: back and chest pain Time Seen by Provider: 05/12/23 18:10 Source: patient, RN notes reviewed, old records reviewed Mode of arrival: ambulatory Limitations: no limitations - History of Present Illness Initial comments: This is a 43-year-old female who presents to the emergency department patient complains of back pain starting yesterday it radiates forward to her chest. Patient states it comes and last for about 15 or so minutes and then goes away. Patient denies any palpitations. Patient denies any fever chills or cough. Patient states she does have a mild headache but she denies numbness or weakness. Patient denies any abdominal pain vomiting diarrhea. Patient Nuys any sore throat. Patient is any congestion. Patient any lower back pain is always midthoracic back pain patient denies any swelling to the legs or calf tenderness. Patient currently does not have chest or back pain - Related Data Home Medications Medication Instructions Recorded Confirmed Albuterol Inhaler [Ventolin Hfa 2 puff INHALATION RT-Q6H PRN 05/12/23 05/12/23 Inhaler] Fluticasone/Umeclidin/Vilanter 1 puff INHALATION RT-DAILY 05/12/23 05/12/23 [Trelegy Ellipta 100-62.5-25] Rosuvastatin [Crestor] 20 mg PO DAILY 05/12/23 05/12/23 Spironolactone [Aldactone] 50 mg PO DAILY 05/12/23 05/12/23 carvediloL [Coreg*] 12.5 mg PO BID 05/12/23 05/12/23 chlordiazePOXIDE HCl [Librium] 20 mg PO DIRECTED PRN 05/12/23 05/12/23 Previous Rx's Medication Instructions Recorded Thiamine [Vitamin B-1] 100 mg PO BID-W/MEALS #30 tab 08/20/19 Allergies Allergy/AdvReac Type Severity Reaction Status Date / Time lisinopril Allergy Anaphylaxis Verified 05/12/23 20:38 Review of Systems ROS Statement: Those systems with pertinent positive or pertinent negative responses have been documented in the HPI. ROS Other: All systems not noted in ROS Statement are negative. Past Medical History Past Medical History: Hypertension Additional Past Medical History / Comment(s): ABD PAIN, POSITIVE OCCULT STOOL, migraines, cardiomyopathy History of Any Multi-Drug Resistant Organisms: None Reported Past Surgical History: Adenoidectomy, Heart Catheterization, Orthopedic Surgery, Tonsillectomy Additional Past Surgical History / Comment(s): 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PLACENTA, trigger finger and cyst removed Past Anesthesia/Blood Transfusion Reactions: No Reported Reaction Past Psychological History: No Psychological Hx Reported Smoking Status: Current every day smoker - Past Family History Father Family Medical History: Cancer Additional Family Medical History / Comment(s): LEUKEMIA General Exam - General Exam Comments Initial Comments: GENERAL: Patient is well-developed and well-nourished. Patient is nontoxic and well- hydrated and is in mild distress. ENT: Neck is soft and supple. No significant lymphadenopathy is noted. Oropharynx is clear. Moist mucous membranes. Neck has full range of motion without eliciting any pain. EYES: The sclera were anicteric and conjunctiva were pink and moist. Extraocular movements were intact and pupils were equal round and reactive to light. Eyelids were unremarkable. PULMONARY: Unlabored respirations. Good breath sounds bilaterally. No audible rales rhonchi or wheezing was noted. CARDIOVASCULAR: There is a regular rate and rhythm without any murmurs gallops or rubs. ABDOMEN: Soft and nontender with normal bowel sounds. SKIN: Skin is clear with no lesions or rashes and otherwise unremarkable. NEUROLOGIC: Patient is alert and oriented x3. Cranial nerves II through XII are grossly intact. Motor and sensory are also intact. Normal speech, volume and content. Symmetrical smile. MUSCULOSKELETAL: Normal extremities with adequate strength and full range of motion. LYMPHATICS: No significant lymphadenopathy is noted PSYCHIATRIC: Normal psychiatric evaluation. Limitations: no limitations Course Vital Signs 05/12/23 05/12/23 05/12/23 18:07 19:01 19:06 Temperature 98.3 F 98.6 F Pulse Rate 89 81 86 Respiratory 16 18 18 Rate Blood Pressure 207/128 178/108 179/97 O2 Sat by Pulse 97 95 Oximetry 05/12/23 05/12/23 19:25 20:18 Temperature Pulse Rate 85 Respiratory 18 Rate Blood Pressure 171/89 186/98 O2 Sat by Pulse 97 Oximetry Medical Decision Making - Medical Decision Making EKG is interpreted by myself. EKG shows a sinus rhythm at 87 bpm [place] interval 168 QRS 165 QT interval 410 QTc is 454. Patient's EKG shows a left bundle branch block. Was pt. sent in by a medical professional or institution (, [facility], [employer], urgent care, hospital, or care home...) When possible be specific @ -No Did you speak to anyone other than the patient for history (EMS, parent, family, police, friend...)? What history was obtained from this source @ -No Did you review nursing and triage notes (agree or disagree)? Why? @ -I reviewed and agree with nursing and triage notes Were old charts reviewed (outside hosp., previous admission, EMS record, old EKG, old radiological studies, urgent care reports/EKG's, care home records)? Report findings @ -I reviewed prior charts and lab work on this patient Differential Diagnosis (chest pain, altered mental status, abdominal pain women, abdominal pain men, vaginal bleeding, weakness, fever, dyspnea, syncope, headache, dizziness, GI bleed, back pain, seizure, CVA, palpatations, mental health, musculoskeletal)? @ -MDM chest pain EKG interpreted by me (3pts min.). @ -As above X-rays interpreted by me (1pt min.). @ -Chest x-ray shows no acute abnormality CT interpreted by me (1pt min.). @ -None done U/S interpreted by me (1pt. min.). @ -None done What testing was considered but not performed or refused? (CT, X-rays, U/S, labs)? Why? @ -None What meds were considered but not given or refused? Why? @ -None Did you discuss the management of the patient with other professionals (professionals i.e. , [facility], [employer]ANT, lab, RT, psych nurse, nursing home social worker, group art supervisor, teacher, division officer weapons department, case management associate)? Give summary @ -I spoke with Dr. Mathew and he agreed to admit the patient Was smoking cessation discussed for >3mins.? @ -No Was critical care preformed (if so, how long)? @ -No Were there social determinants of health that impacted care today? How? (Homelessness, low income, unemployed, alcoholism, drug addiction, transportation, low edu. Level, literacy, decrease access to med. care, skilled nursing, rehab)? @ -No Was there de-escalation of care discussed even if they declined (Discuss DNR or withdrawal of care, Hospice)? DNR status @ -No What co-morbidities impacted this encounter? (DM, HTN, Smoking, COPD, CAD, Cancer, CVA, ARF, Chemo, Hep., AIDS, mental health diagnosis, sleep apnea, morbid obesity)? @ -None Was patient admitted / discharged? Hospital course, mention meds given and route, prescriptions, significant lab abnormalities, going to OR and other pertinent info. @ -Patient chest pain was feeling better however she had a little bit of wheezing she was given albuterol treatment. I spoke with But he agreed to admit the patient for chest pain. Patient also had high blood pressure hydralazine did bring the pressure down a little bit patient got a second dose of hydralazine. Undiagnosed new problem with uncertain prognosis? @ -No Drug Therapy requiring intensive monitoring for toxicity (Heparin, Nitro, Insulin, Cardizem)? @ -No Were any procedures done? @ -No Diagnosis/symptom? @ -Chest pain Acute, or Chronic, or Acute on Chronic? @ -Acute Uncomplicated (without systemic symptoms) or Complicated (systemic symptoms)? @ -Complicated Side effects of treatment? @ -No Exacerbation, Progression, or Severe Exacerbation? @ -No Poses a threat to life or bodily function? How? (Chest pain, USA, MS, pneumonia, PE, COPD, DKA, ARF, appy, cholecystitis, CVA, Diverticulitis, Homicidal, Suicidal, threat to staff... and all critical care pts) @ -Yes this could lead to an MS and endorgan dysfunction Diagnosis/symptom? @ -Hypertensive urgency Acute, or Chronic, or Acute on Chronic? @ -Acute Uncomplicated (without systemic symptoms) or Complicated (systemic symptoms)? @ -Complicated Side effects of treatment? @ -None Exacerbation, Progression, or Severe Exacerbation] @ -No Poses a threat to life or bodily function? @ -No - Lab Data Result diagrams: 05/12/23 18:52 05/12/23 18:52 Lab Results 05/12/23 05/12/23 05/12/23 Range/Units 18:52 18:52 18:52 WBC 12.8 H (3.8-10.6) k/uL RBC 5.09 (3.80-5.40) m/uL Hgb 15.9 (11.4-16.0) gm/dL Hct 48.8 H (34.0-46.0) % MCV 95.8 (80.0-100.0) fL MCH 31.2 (25.0-35.0) pg MCHC 32.6 (31.0-37.0) g/dL RDW 15.0 (11.5-15.5) % Plt Count 322 (150-450) k/uL MPV 7.4 Neutrophils % 59 % Lymphocytes % 32 % Monocytes % 6 % Eosinophils % 1 % Basophils % 1 % Neutrophils # 7.5 (1.3-7.7) k/uL Lymphocytes # 4.1 (1.0-4.8) k/uL Monocytes # 0.8 (0-1.0) k/uL Eosinophils # 0.1 (0-0.7) k/uL Basophils # 0.1 (0-0.2) k/uL PT 10.4 (10.0-12.5) sec INR 0.9 (<1.2) APTT 23.4 (22.0-30.0) sec D-Dimer 0.42 (<0.60) mg/L FEU Sodium 136 L (137-145) mmol/L Potassium 4.0 (3.5-5.1) mmol/L Chloride 102 (98-107) mmol/L Carbon Dioxide 29 (22-30) mmol/L Anion Gap 5 mmol/L BUN 19 H (7-17) mg/dL Creatinine 0.53 (0.52-1.04) mg/dL Est GFR (CKD-EPI)AfAm >90 (>60 ml/min/1.73 sqM) Est GFR (CKD-EPI)NonAf >90 (>60 ml/min/1.73 sqM) Glucose 106 H (74-99) mg/dL Calcium 9.3 (8.4-10.2) mg/dL Magnesium 1.7 (1.6-2.3) mg/dL Total Bilirubin 0.5 (0.2-1.3) mg/dL AST 27 (14-36) U/L ALT 36 H (4-34) U/L Alkaline Phosphatase 90 (38-126) U/L Troponin I (0.000-0.034) ng/mL Total Protein 6.9 (6.3-8.2) g/dL Albumin 3.8 (3.5-5.0) g/dL 05/12/23 Range/Units 18:52 WBC (3.8-10.6) k/uL RBC (3.80-5.40) m/uL Hgb (11.4-16.0) gm/dL Hct (34.0-46.0) % MCV (80.0-100.0) fL MCH (25.0-35.0) pg MCHC (31.0-37.0) g/dL RDW (11.5-15.5) % Plt Count (150-450) k/uL MPV Neutrophils % % Lymphocytes % % Monocytes % % Eosinophils % % Basophils % % Neutrophils # (1.3-7.7) k/uL Lymphocytes # (1.0-4.8) k/uL Monocytes # (0-1.0) k/uL Eosinophils # (0-0.7) k/uL Basophils # (0-0.2) k/uL PT (10.0-12.5) sec INR (<1.2) APTT (22.0-30.0) sec D-Dimer (<0.60) mg/L FEU Sodium (137-145) mmol/L Potassium (3.5-5.1) mmol/L Chloride (98-107) mmol/L Carbon Dioxide (22-30) mmol/L Anion Gap mmol/L BUN (7-17) mg/dL Creatinine (0.52-1.04) mg/dL Est GFR (CKD-EPI)AfAm (>60 ml/min/1.73 sqM) Est GFR (CKD-EPI)NonAf (>60 ml/min/1.73 sqM) Glucose (74-99) mg/dL Calcium (8.4-10.2) mg/dL Magnesium (1.6-2.3) mg/dL Total Bilirubin (0.2-1.3) mg/dL AST (14-36) U/L ALT (4-34) U/L Alkaline Phosphatase (38-126) U/L Troponin I <0.012 (0.000-0.034) ng/mL Total Protein (6.3-8.2) g/dL Albumin (3.5-5.0) g/dL Disposition Clinical Impression: Chest pain, Hypertensive urgency Disposition: ADMITTED IP TO THIS HOSP Referrals: Ben Serra MD [Primary Care Provider] - 1-2 days Time of Disposition: 21:10
[2023-05-12] MEDS: hydrALAZINE HCL 20 MG/ML 1 ML VIAL IVP STA ×2 (19:02→21:24)
[2023-05-12 19:13] LABS: Basophils # (A) 0.1 k/uL (0-0.2); Basophils % (A) 1 %; Eosinophils # (A) 0.1 k/uL (0-0.7); Eosinophils % (A) 1 %; HCT 48.8 % (34.0-46.0); HGB 15.9 gm/dL (11.4-16.0); Lymphocytes # (A) 4.1 k/uL (1.0-4.8); Lymphocytes % (A) 32 %; MCH 31.2 pg (25.0-35.0); MCHC 32.6 g/dL (31.0-37.0); MCV 95.8 fL (80.0-100.0); Mean Platelet Volume 7.4; Monocytes # (A) 0.8 k/uL (0-1.0); Monocytes % (A) 6 %; Neutrophils # (A) 7.5 k/uL (1.3-7.7); Neutrophils % (A) 59 %; Platelet Count 322 k/uL (150-450); RBC 5.09 m/uL (3.80-5.40); WBC 12.8 k/uL (3.8-10.6)
[2023-05-12 19:26] LABS: ALT 36 U/L (4-34); AST 27 U/L (14-36); African American GFR (CKD) >90 (>60 ml/min/1.73 sqM); Albumin 3.8 g/dL (3.5-5.0); Alkaline Phosphatase 90 U/L (38-126); Anion Gap 5 mmol/L; Blood Urea Nitrogen 19 mg/dL (7-17); Calcium 9.3 mg/dL (8.4-10.2); Carbon Dioxide 29 mmol/L (22-30); Chloride 102 mmol/L (98-107); Glucose 106 mg/dL (74-99); Magnesium 1.7 mg/dL (1.6-2.3); Non-African American GFR(CKD) >90 (>60 ml/min/1.73 sqM); Sodium 136 mmol/L (137-145); Total Bilirubin 0.5 mg/dL (0.2-1.3); Total Protein 6.9 g/dL (6.3-8.2)
[2023-05-12 19:29] LABS: INR 0.9 (<1.2); Partial Thromboplastin Time 23.4 sec (22.0-30.0); Prothrombin Time 10.4 sec (10.0-12.5)
--- NOTE | 2023-05-12 19:58 | XR ---
EXAMINATION TYPE: XR chest 2V DATE OF EXAM: 05/12/2023 COMPARISON: 08/19/2019 HISTORY: 43-year-old female with chest pain TECHNIQUE: PA and lateral views FINDINGS: Heart borderline in size. Mild interstitial/vascular prominence without consolidation or pleural effu jeremiah. IMPRESSION: Borderline heart size. Mild interstitial/vascular prominence. Correlate to exclude early pulmonary va scular congestion.
[2023-05-12] MEDS ORDERED: NITROGLYCERIN SL TABS 0.4 MG TAB SUBLINGUAL PRN (21:10)
[2023-05-12] MEDS: IPRATROPIUM-ALBUTEROL 3 ML NEB INHALATION STA (21:18)
[2023-05-12] MEDS: NITROGLYCERIN OINT 1 INCH/GM PACKET TOPICAL SCH (23:23)
[2023-05-13] MEDS ORDERED: IPRATROPIUM-ALBUTEROL 3 ML NEB INHALATION PRN (02:40)
--- NOTE | 2023-05-13 02:42 | P.HPIM ---
History of Present Illness H&P Date: 05/12/23 Patient is a 43-year-old female with a PMH of mild systolic CHF EF 45 to 50% on echocardiogram from 2019, tobacco abuse, hypertension and hyperlipidemia who presents to the emergency room with complaints of back pain and shortness of breath. Reports has been experiencing mid lower back discomfort for the past 36 hours, radiating into her upper back. The pain occurs intermittently lasting for several seconds at a time numerous times a day, unsure if worsened with movement, and last occurred just prior to arrival at the emergency room. She also reports experiencing mild shortness of breath for the past 2 to 3 months for which she was seen at an outpatient clinic where she was prescribed a Z-Jeffrey, Medrol Dosepak, Trelegy and albuterol inhalers. Reports that despite using these medications, she continues to have mild wheezing and shortness of breath with a nonproductive cough. Denies experiencing substernal or epigastric chest discomfort, fever, chills, nausea, vomiting, diaphoresis, or dizziness. Chest x-ray in the emergency room revealed a borderline heart size with increased vascular markings. EKG revealed sinus rhythm with a left bundle branch block at 87 bpm as reviewed by me (unchanged from prior EKG from 2019). Laboratory evaluation was remarkable for leukocytosis of 12.8 with troponin less than 0.012, proBNP 1180, glucose 106 and sodium 136. ED documentation reviewed and case discussed with ED provider. Review of systems: Pertinent positives and negatives as discussed in HPI, a complete review of systems was performed and all other systems are negative. Physical examination: Vital signs reviewed General: non toxic, no distress, appears at stated age, obese Derm: no unusual rashes/lesions, warm Head: atraumatic, normocephalic, symmetric Eyes: EOMI, no lid lag, anicteric sclera, pupils equal round reactive to light ENT: Nose and ears atraumatic Neck: No cervical lymphadenopathy, trachea midline, supple Mouth: no lip lesion, mucus membranes moist Cardiovascular: S1S2 reg, no murmur, positive dorsalis pedis pulse bilateral, no edema Lungs: CTA bilateral, no rhonchi, no rales, no accessory muscle use Abdominal: soft, nontender to palpation, no guarding Ext: muscle strength 5 out of 5 in all 4 extremities grossly, no gross muscle atrophy, no contractures, absent back spinal or paraspinal tenderness Neuro: CN II-XI grossly intact, no gross focal neuro deficits Psych: Alert, oriented, appropriate affect Assessment: Back pain with radiation, suspect musculoskeletal in nature, low suspicion for ACS at this time Mild acute CHF exacerbation Bronchitis with wheezing Chronic conditions:Hypertension, hyperlipidemia Imaging: Chest x-ray in the emergency room revealed a borderline heart size with increased vascular markings. EKG revealed sinus rhythm with a left bundle branch block at 87 bpm as reviewed by me (unchanged from prior EKG from 2019). Data Review: Laboratory evaluation was remarkable for leukocytosis of 12.8 with troponin less than 0.012, proBNP 1180, glucose 106 and sodium 136. Plan: Obtain repeat echocardiogram Continue with prednisone 40 mg by mouth daily DuoNeb's [id number] and as needed Continue azithromycin for now Check procalcitonin levels Start Lasix 40 mg po q12h Intake and output Daily weights Cardiac monitoring Cardiology consulted DVT prophylaxis: Lovenox Subq The patient is admitted with an anticipated greater than 2 midnight stay for evaluation of CHF CODE STATUS: Full Code Discussed with: Patient Anticipated discharge place: Home 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PLACENTA, trigger finger and cyst removed Past Anesthesia/Blood Transfusion Reactions: No Reported Reaction Past Psychological History: No Psychological Hx Reported Smoking Status: Current every day smoker Past Alcohol Use History: Daily Additional Past Alcohol Use History / Comment(s): smokes 1pk/day/20yrs plus Past Drug Use History: None Reported Additional Drug Use History / Comment(s): daily alcohol drinke - states drinks 12 seltzer drink/day 5-7 days a week - Past Family History Father Family Medical History: Cancer Additional Family Medical History / Comment(s): LEUKEMIA Medications and Allergies Home Medications Medication Instructions Recorded Confirmed Type Thiamine [Vitamin B-1] 100 mg PO BID-W/MEALS #30 tab 08/20/19 05/12/23 Rx Albuterol Inhaler [Ventolin Hfa 2 puff INHALATION RT-Q6H PRN 05/12/23 05/12/23 History Inhaler] Fluticasone/Umeclidin/Vilanter 1 puff INHALATION RT-DAILY 05/12/23 05/12/23 History [Trelegy Ellipta 100-62.5-25] Rosuvastatin [Crestor] 20 mg PO DAILY 05/12/23 05/12/23 History Spironolactone [Aldactone] 50 mg PO DAILY 05/12/23 05/12/23 History carvediloL [Coreg*] 12.5 mg PO BID 05/12/23 05/12/23 History chlordiazePOXIDE HCl [Librium] 20 mg PO DIRECTED PRN 05/12/23 05/12/23 Histo ry Allergies Allergy/AdvReac Type Severity Reaction Status Date / Time lisinopril Allergy Anaphylaxis Verified 05/12/23 20:38 Physical Exam Vitals: Vital Signs Temp Pulse Pulse Resp BP BP Pulse Ox 05/12/23 23:24 98.5 F 76 18 179/97 94 L 05/12/23 22:14 87 18 140/79 94 L 05/12/23 21:29 84 05/12/23 21:19 83 05/12/23 21:06 81 18 173/104 96 05/12/23 20:18 85 18 186/98 97 05/12/23 19:25 171/89 05/12/23 19:06 98.6 F 86 18 179/97 05/12/23 19:01 81 18 178/108 95 05/12/23 18:07 98.3 F 89 16 207/128 97 Intake and Output 05/12/23 05/12/23 05/13/23 14:59 22:59 06:59 Other: # Voids 1 Weight 98.883 kg 98.883 kg Results CBC & Chem 7: 05/12/23 18:52 05/12/23 18:52 Labs: Abnormal Lab Results - Last 24 Hours (Table) 05/12/23 05/12/23 Range/Units 18:52 18:52 WBC 12.8 H (3.8-10.6) k/uL Hct 48.8 H (34.0-46.0) % Sodium 136 L (137-145) mmol/L BUN 19 H (7-17) mg/dL Glucose 106 H (74-99) mg/dL ALT 36 H (4-34) U/L Thrombosis Risk Factor Assmnt - Choose All That Apply Any of the Below Risk Factors Present?: Yes Each Factor Represents 1 point: Age 41-60 years Other Risk Factors: No Thrombosis Risk Factor Assessment Total Risk Factor Score: 1 Thrombosis Risk Factor Assessment Level: Low Risk
[2023-05-13] MEDS: THIAMINE 100 MG TAB PO SCH (06:30)
[2023-05-13] MEDS: carvediloL 12.5 MG TAB PO SCH (06:30)
[2023-05-13] MEDS: SYMBICORT 80-4.5 MCG INHALER INHALATION SCH (06:41)
[2023-05-13] MEDS: IPRATROPIUM-ALBUTEROL 3 ML NEB INHALATION SCH (06:41)
[2023-05-13] MEDS ORDERED: IPRATROPIUM 0.5 MG/2.5 ML NEBU INHALATION SCH (08:00)
[2023-05-13] MEDS: SPIRONOLACTONE 25 MG TAB PO SCH (08:32)
[2023-05-13] MEDS: FUROSEMIDE 40 MG TAB PO SCH (08:32)
[2023-05-13] MEDS: ENOXAPARIN 40 MG/0.4 ML SYRINGE SQ SCH (08:33)
[2023-05-13] MEDS: ATORVASTATIN 40 MG TAB PO SCH (08:33)
[2023-05-13] MEDS: ASPIRIN 325 MG TAB PO SCH (08:33)
[2023-05-13] MEDS: AZITHROMYCIN 500 MG TAB PO SCH (08:33)
[2023-05-13] MEDS: predniSONE 20 MG TAB PO SCH (08:33)
[2023-05-13] MEDS: ACETAMINOPHEN TAB 325 MG TAB PO PRN (08:50)
[2023-05-13] MEDS: LOSARTAN 50 MG TAB PO SCH (08:50)
[2023-05-13 12:01] LABS: Chol/HDL Ratio 3.87 Ratio; LDL Cholesterol,Calculated 155.1 mg/dL (0.0-131.0)
--- NOTE | 2023-05-13 12:26 | P.CRDCN ---
History of Present Illness Consult date: 05/13/23 History of present illness: History of present illness: This is a 43-year-old female patient previously seen in [address] Ganesh chow [facility] of mild coronary artery disease with mild to moderate impairment in the systolic function, tobacco use and dependence, hypertension, dyslipidemia, left bundle block, suspected obstructive sleep apnea, nonischemic cardiomyopathy with previous EF of 35%. We have been asked to evaluate the patient for hypertensive urgency and chest pain. Patient states that she developed pain in her chest that became very severe over the past 2 days. Pain has been gone since she came into the hospital. She states she has been taking all of her home medications as directed. She was recently in to her PCP office last week and she was told that her blood pressure was good. She states at home her blood pressure usually runs 144/84 or little higher. Patient is an active smoker. Her last alcohol intake was on Thursday and she states she drank 512 ounce seltzers. She denies any drug use. 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 EKG sinus rhythm with left bundle branch block Chest x-ray: Borderline heart size. Mild interstitial/vascular prominence. Correlate to exclude early pulmonary vascular congestion. WBC 12.8, hemoglobin 15, platelet count 222. INR 0.9. D-dimer 0.42. Sodium 136, potassium 4, BUN 19 creatinine 0.53. Blood sugar 106. Troponin negative x 3. proBNP 1180. AST 36 otherwise liver function test are normal. Home cardiac medications: Coreg 12.5 mg twice daily, Crestor 20 mg daily, Aldactone 50 mg daily. Echocardiogram performed 08/20/2019 revealed EF of 45 to 50%, mild concentric left hypertrophy. Mild mitral regurgitation, mild tricuspid regurgitation, mild pulm hypertension. Cardiac catheterization performed 09/16/2018 revealed mild intimal disease involving LAD and right coronary artery. Mildly to moderately impaired left ventricular systolic function. Review Of Systems: At the time of my exam: CONSTITUTIONAL: Denies fever or chills. HEENT: Denies blurred vision, vision changes, or eye pain. Denies hemoptysis. Reports headache CARDIOVASCULAR: Denies chest pain. Denies orthopnea. Denies PND. Denies palpita tions RESPIRATORY: Denies shortness of breath. GASTROINTESTINAL: Denies abdominal pain. Denies nausea or vomiting. HEMATOLOGIC: Denies bleeding disorders. GENITOURINARY: Denies any blood in urine. SKIN: Denies pruitis. Denies rash. Physical examination: Gen: This is a 43-year-old obese female in no acute distress VS: reviewed HEENT: Head is atraumatic, normocephalic. Pupils equal, round. Sclerae is anicteric. NECK: Supple. No JVD. LUNGS: Clear to auscultation. No wheezes or rhonchi. No intercostal retractions. HEART: Regular rate and rhythm. No murmur. ABDOMEN: Soft No tenderness. EXTREMITIES: No pedal edema. No calf tenderness. NEUROLOGICAL: Patient is awake, alert and oriented x3. Assessment: Hypertensive urgency Chest pain, ACS ruled out with negative troponins Plan: Continue home cardiac medications Add Losartan 50 mg qd Obtain Renin, Aldosterone, cortisol, TSH, metanephrines to rule out secondary cause of hypertension Monitor blood pressure closely Discontinue Nitropaste Obtain 2-D echocardiogram and Doppler study to assess cardiac structure and function Further recommendations to follow based upon clinical course Thank you kindly for this consultation. Nurse practitioner note has been reviewed, I agree with documented findings and plan of care. Patient was seen and examined. 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[employer]ENT[employer], trigger finger and cyst removed Past Anesthesia/Blood Transfusion Reactions: No Reported Reaction Past Psychological History: No Psychological Hx Reported Smoking Status: Current every day smoker Past Alcohol Use History: Daily Additional Past Alcohol Use History / Comment(s): smokes 1pk/day/20yrs plus Past Drug Use History: None Reported Additional Drug Use History / Comment(s): daily alcohol drinke - states drinks 12 seltzer drink/day 5-7 days a week - Past Family History Father Family Medical History: Cancer Additional Family Medical History / Comment(s): LEUKEMIA Medications and Allergies Home Medications Medication Instructions Recorded Confirmed Type Thiamine [Vitamin B-1] 100 mg PO BID-W/MEALS #30 tab 08/20/19 05/12/23 Rx Albuterol Inhaler [Ventolin Hfa 2 puff INHALATION RT-Q6H PRN 05/12/23 05/12/23 History Inhaler] Fluticasone/Umeclidin/Vilanter 1 puff INHALATION RT-DAILY 05/12/23 05/12/23 History [Trelegy Ellipta 100-62.5-25] Rosuvastatin [Crestor] 20 mg PO DAILY 05/12/23 05/12/23 History Spironolactone [Aldactone] 50 mg PO DAILY 05/12/23 05/12/23 History carvediloL [Coreg*] 12.5 mg PO BID 05/12/23 05/12/23 History chlordiazePOXIDE HCl [Librium] 20 mg PO DIRECTED PRN 05/12/23 05/12/23 History Allergies Allergy/AdvReac Type Severity Reaction Status Date / Time lisinopril Allergy Anaphylaxis Verified 05/12/23 20:38 Physical Exam Vitals: Vital Signs Temp Pulse Pulse Resp BP BP Pulse Ox 05/13/23 06:51 80 05/13/23 06:43 77 05/13/23 03:31 77 16 157/78 95 05/12/23 23:24 98.5 F 76 18 179/97 94 L 05/12/23 22:14 87 18 140/79 94 L 05/12/23 21:29 84 05/12/23 21:19 83 05/12/23 21:06 81 18 173/104 96 05/12/23 20:18 85 18 186/98 97 05/12/23 19:25 171/89 05/12/23 19:06 98.6 F 86 18 179/97 05/12/23 19:01 81 18 178/108 95 05/12/23 18:07 98.3 F 89 16 207/128 97 Intake and Output 05/12/23 05/13/23 05/13/23 22:59 06:59 14:59 Other: # Voids 1 Weight 98.883 kg 98.883 kg Results 05/12/23 18:52 05/12/23 18:52 Cardiac Enzymes 05/12/23 05/12/23 05/12/23 Range/Units 18:52 18:52 21:37 AST 27 (14-36) U/L Troponin I <0.012 <0.012 (0.000-0.034) ng/mL 02/14/24 Range/Units 00:33 AST (14-36) U/L Troponin I <0.012 (0.000-0.034) ng/mL Coagulation 05/12/23 Range/Units 18:52 PT 10.4 (10.0-12.5) sec APTT 23.4 (22.0-30.0) sec CBC 05/12/23 Range/Units 18:52 WBC 12.8 H (3.8-10.6) k/uL RBC 5.09 (3.80-5.40) m/uL Hgb 15.9 (11.4-16.0) gm/dL Hct 48.8 H (34.0-46.0) % Plt Count 322 (150-450) k/uL Comprehensive Metabolic Panel 05/12/23 Range/Units 18:52 Sodium 136 L (137-145) mmol/L Potassium 4.0 (3.5-5.1) mmol/L Chloride 102 (98-107) mmol/L Carbon Dioxide 29 (22-30) mmol/L BUN 19 H (7-17) mg/dL Creatinine 0.53 (0.52-1.04) mg/dL Glucose 106 H (74-99) mg/dL Calcium 9.3 (8.4-10.2) mg/dL AST 27 (14-36) U/L ALT 36 H (4-34) U/L Alkaline Phosphatase 90 (38-126) U/L Total Protein 6.9 (6.3-8.2) g/dL Albumin 3.8 (3.5-5.0) g/dL Current Medications Generic Name Dose Route Start Last Admin Trade Name Freq PRN Reason Stop Dose Admin Albuterol/Ipratropium 3 ml 05/13/23 02:40 Ipratropium-Albuterol 3 Ml Neb INHALATION RT-QID PRN Shortness Of Breath Or Wheezing Albuterol/Ipratropium 3 ml 05/13/23 08:00 05/13/23 06:41 Ipratropium-Albuterol 3 Ml Neb INHALATION 3 ml RT-QID [facility] Administration Aspirin 325 mg 05/13/23 09:00 Aspirin 325 Mg Tab PO DAILY [facility] Atorvastatin Calcium 40 mg 05/13/23 09:00 Atorvastatin 40 Mg Tab PO DAILY [facility] Azithromycin 500 mg 05/13/23 09:00 Azithromycin 500 Mg Tab PO 05/15/23 09:01 DAILY [facility] Protocol Budesonide/Formoterol Fumarate 2 puff 05/13/23 08:00 05/13/23 06:41 Symbicort 80-4.5 Mcg Inhaler INHALATION 2 puff RT-BID [facility] Administration Carvedilol 12.5 mg 05/13/23 07:30 05/13/23 06:30 Carvedilol 12.5 Mg Tab PO 12.5 mg BID-W/MEALS [facility] Administration Enoxaparin Sodium 40 mg 05/13/23 09:00 Enoxaparin 40 Mg/0.4 Ml Syringe SQ DAILY [facility] Furosemide 40 mg 05/13/23 09:00 Furosemide 40 Mg Tab PO BID@0900,1600 [facility] Nitroglycerin 0.4 mg 05/12/23 21:10 Nitroglycerin Sl Tabs 0.4 Mg Tab SUBLINGUAL Q5M PRN Chest Pain Nitroglycerin 1 inch 05/13/23 00:00 05/13/23 06:30 Nitroglycerin Oint 1 Inch/Gm Packet TOPICAL 1 inch Q6HR [facility] Administration Prednisone 40 mg 05/13/23 09:00 Prednisone 20 Mg Tab PO DAILY [facility] Spironolactone 50 mg 05/13/23 09:00 Spironolactone 25 Mg Tab PO DAILY [facility] Thiamine HCl 100 mg 05/13/23 07:30 05/13/23 06:30 Thiamine 100 Mg Tab PO 100 mg BID-W/MEALS [facility] Administration Intake and Output 05/12/23 05/13/23 05/13/23 22:59 06:59 14:59 Other: # Voids 1 Weight 98.883 kg 98.883 kg 05/12/23 18:52 05/12/23 18:52
--- NOTE | 2023-05-13 13:45 | P.PN ---
Subjective Progress Note Date: 05/13/23 Hospital Course: 42-year-old female with history of mild systolic CHF, EF 45 to 50%, nicotine dependence, alcohol dependence, hypertension, dyslipidemia presented with chest pain, back pain and shortness of breath. Chest x-ray in the emergency room revealed a borderline heart size with increased vascular markings. EKG revealed sinus rhythm with a left bundle branch block at 87 bpm (unchanged from prior EKG from 2019). Laboratory evaluation was remarkable for leukocytosis of 12.8 with troponin less than 0.012, proBNP 1180, glucose 106 and sodium 136. Patient admitted for chest pain, hypertensive urgency, mild CHF exacerbation. Cardiology consulted Subjective: Patient seen and examined at bedside. Denies any further chest pain. Pertinent positives and negatives as discussed above, a complete review of systems was performed and all other systems are negative. Vitals Signs Reviewed. General: Nontoxic, no distress, appears at stated age Derm: Warm, dry Head: Atraumatic, normocephalic, symmetric Eyes: EOMI, no lid lag, anicteric sclera Mouth: No lip lesion, mucus membranes moist Cardiovascular: S1S2 reg, no murmur Lungs: CTA bilateral, no rhonchi, no rales, no accessory muscle use Abdominal: Soft, nontender to palpation, no guarding, no appreciable organomegaly Ext: No gross muscle atrophy, no edema, no contractures Neuro: CN II-XI grossly intact, no focal neuro deficits Psych: Alert, oriented, appropriate affect Data Reviewed Today: Pertinent Labs: Total cholesterol 245, LDL 155, TSH 2.04, procalcitonin negative, troponin negative x 3 Imaging: EKG independently interpreted from this morning, shows left bundle branch block Assessment and Plan: Active: Chest pain, ACS ruled out Mild COPD exacerbation Mild systolic CHF exacerbation Hypertensive urgency Nicotine dependence -Cardiology note reviewed, echocardiogram pending -Secondary hypertension workup also pending -Continue home Coreg 12.5 twice daily, also started on losartan 50 daily, continue Aldactone 50 daily -Patient also started on Lasix 40 twice daily, monitor for electrolytes and renal function -Continue atorvastatin 40 mg daily, on aspirin 81 mg daily -DuoNeb scheduled and as needed, continue Symbicort twice daily, oral prednisone 40 daily -Counseled regarding smoking cessation Alcohol dependence -Thiamine 100 mg twice daily, home dose -Monitor for withdrawals Chronic: Dyslipidemia DVT ppx: Lovenox Code status: Full code Anticipated discharge place: Patient pending clinical course Anticipated discharge time: Pending clinical course Objective - Vital Signs Vital signs: Vital Signs Temp 98.5 F 05/12/23 23:24 Pulse 80 05/13/23 11:54 Resp 16 05/13/23 03:31 BP 157/78 05/13/23 03:31 Pulse Ox 95 05/13/23 03:31 FiO2 Intake & Output 05/12/23 05/13/23 05/13/23 18:59 06:59 18:59 Intake Total 358 Balance 358 Weight 98.883 kg 98.883 kg Intake: Oral 358 Other: # Voids 1 - Labs CBC & Chem 7: 05/12/23 18:52 05/12/23 18:52 Labs: Abnormal Lab Results - Last 24 Hours (Table) 05/12/23 05/12/23 05/13/23 Range/Units 18:52 18:52 08:03 WBC 12.8 H (3.8-10.6) k/uL Hct 48.8 H (34.0-46.0) % Sodium 136 L (137-145) mmol/L BUN 19 H (7-17) mg/dL Glucose 106 H (74-99) mg/dL ALT 36 H (4-34) U/L Cholesterol 245.00 H (0.00-200.00) mg/dL LDL Cholesterol, Calc 155.1 H (0.0-131.0) mg/dL HDL Cholesterol 63.30 H (40.00-60.00) mg/dL
[2023-05-14] MEDS: ASPIRIN 81 MG PO SCH (09:40)
[2023-05-14 10:33] LABS: Basophils % (A) 0 %; Eosinophils # (A) 0.1 k/uL (0-0.7); Eosinophils % (A) 0 %; HCT 50.6 % (34.0-46.0); HGB 16.1 gm/dL (11.4-16.0); Lymphocytes # (A) 3.2 k/uL (1.0-4.8); Lymphocytes % (A) 25 %; MCH 30.5 pg (25.0-35.0); MCHC 31.8 g/dL (31.0-37.0); MCV 96.1 fL (80.0-100.0); Mean Platelet Volume 7.8; Monocytes # (A) 0.6 k/uL (0-1.0); Monocytes % (A) 4 %; Neutrophils # (A) 8.9 k/uL (1.3-7.7); Neutrophils % (A) 69 %; Platelet Count 308 k/uL (150-450); RBC 5.27 m/uL (3.80-5.40); RDW 15.6 % (11.5-15.5); WBC 12.9 k/uL (3.8-10.6)
[2023-05-14 11:05] LABS: Potassium 4.2 mmol/L (3.5-5.1)
[2023-05-14 11:06] LABS: African American GFR (CKD) >90 (>60 ml/min/1.73 sqM); Anion Gap 6 mmol/L; Blood Urea Nitrogen 20 mg/dL (7-17); Calcium 9.4 mg/dL (8.4-10.2); Carbon Dioxide 26 mmol/L (22-30); Chloride 104 mmol/L (98-107); Glucose 83 mg/dL (74-99); Magnesium 2.2 mg/dL (1.6-2.3); Non-African American GFR(CKD) >90 (>60 ml/min/1.73 sqM); Sodium 136 mmol/L (137-145)
[2023-05-14] MEDS: LOSARTAN 50 MG TAB PO STA (13:14)
--- NOTE | 2023-05-14 14:26 | P.PN ---
Subjective Progress Note Date: 05/14/23 History of present illness: This is a 43-year-old female patient previously seen in [address] Ganesh chow [facility] of mild coronary artery disease with mild to moderate impairment in the systolic function, tobacco use and dependence, hypertension, dyslipidemia, left bundle block, suspected obstructive sleep apnea, nonischemic cardiomyopathy with previous EF of 35%. We have been asked to evaluate the patient for hypertensive urgency and chest pain. Patient states that she developed pain in her chest that became very severe over the past 2 days. Pain has been gone since she came into the hospital. She states she has been taking all of her home medications as directed. She was recently in to her PCP office last week and she was told that her blood pressure was good. She states at home her blood pressure usually runs 144/84 or little higher. Patient is an active smoker. Her last alcohol intake was on Thursday and she states she drank 512 ounce seltzers. She denies any drug use. 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 EKG sinus rhythm with left bundle branch block Chest x-ray: Borderline heart size. Mild interstitial/vascular prominence. Correlate to exclude early pulmonary vascular congestion. WBC 12.8, hemoglobin 15, platelet count 222. INR 0.9. D-dimer 0.42. Sodium 136, potassium 4, BUN 19 creatinine 0.53. Blood sugar 106. Troponin negative x 3. proBNP 1180. AST 36 otherwise liver function test are normal. Home cardiac medications: Coreg 12.5 mg twice daily, Crestor 20 mg daily, Aldac tone 50 mg daily. Echocardiogram performed 08/20/2019 revealed EF of 45 to 50%, mild concentric left hypertrophy. Mild mitral regurgitation, mild tricuspid regurgitation, mild pulm hypertension. Cardiac catheterization performed 09/16/2018 revealed mild intimal disease involving LAD and right coronary artery. Mildly to moderately impaired left ventricular systolic function. 05/14 Patient is seen today in follow-up on the cardiac stepdown unit. She denies any new concerns. She is feeling well no headache. No lightheadedness or dizziness. Blood pressure 121/78, heart rate 72. TSH 2.04. Cortisol level 4.7. Physical examination: Gen: This is a 43-year-old obese female in no acute distress VS: reviewed HEENT: Head is atraumatic, normocephalic. Pupils equal, round. Sclerae is anicteric. NECK: Supple. No JVD. LUNGS: Clear to auscultation. No wheezes or rhonchi. No intercostal retracti ons. HEART: Regular rate and rhythm. No murmur. ABDOMEN: Soft No tenderness. EXTREMITIES: No pedal edema. No calf tenderness. NEUROLOGICAL: Patient is awake, alert and oriented x3. Assessment: Hypertensive urgency Chest pain, ACS ruled out with negative troponins Plan: Continue home cardiac medications Continue the addition of losartan 50 mg qd Obtain Renin, Aldosterone, metanephrines to rule out secondary cause of hypertension and will be followed up as an outpatient If echocardiogram is unremarkable, patient is cleared for discharge home and may follow-up in the office with Dr. Chantel Raza in 2 weeks. Nurse practitioner note has been reviewed, I agree with documented findings and plan of care. Patient was seen and examined. Objective - Vital Signs Vital signs: Vital Signs Temp 97.7 F 05/14/23 11:57 Pulse 72 05/14/23 12:05 Resp 16 05/14/23 12:05 BP 121/78 05/14/23 11:57 Pulse Ox 95 05/14/23 11:57 FiO2 Intake & Output 05/13/23 05/14/23 05/14/23 18:59 06:59 18:59 Intake Total 476 540 236 Balance 476 540 236 Weight 96.6 kg Intake: Oral 476 540 236 Other: Voiding Method Toilet Toilet # Voids 2 - Labs CBC & Chem 7: 05/14/23 10:01 05/14/23 10:01 Labs: Abnormal Lab Results - Last 24 Hours (Table) 05/14/23 05/14/23 Range/Units 10:01 10:01 WBC 12.9 H (3.8-10.6) k/uL Hgb 16.1 H (11.4-16.0) gm/dL Hct 50.6 H (34.0-46.0) % RDW 15.6 H (11.5-15.5) % Neutrophils # 8.9 H (1.3-7.7) k/uL Sodium 136 L (137-145) mmol/L BUN 20 H (7-17) mg/dL
--- NOTE | 2023-05-14 16:27 | P.PN ---
Subjective Progress Note Date: 05/14/23 Hospital Course: 42-year-old female with history of mild systolic CHF, EF 45 to 50%, nicotine dependence, alcohol dependence, hypertension, dyslipidemia presented with chest pain, back pain and shortness of breath. Chest x-ray in the emergency room revealed a borderline heart size with increased vascular markings. EKG revealed sinus rhythm with a left bundle branch block at 87 bpm (unchanged from prior EKG from 2019). Laboratory evaluation was remarkable for leukocytosis of 12.8 with troponin less than 0.012, proBNP 1180, glucose 106 and sodium 136. Patient admitted for chest pain, hypertensive urgency, mild CHF exacerbation. Cardiology consulted. Echo pending. Subjective: Patient seen and examined at bedside. Denies any further chest pain. Pertinent positives and negatives as discussed above, a complete review of systems was performed and all other systems are negative. Vitals Signs Reviewed. General: Nontoxic, no distress, appears at stated age Derm: Warm, dry Head: Atraumatic, normocephalic, symmetric Eyes: EOMI, no lid lag, anicteric sclera Mouth: No lip lesion, mucus membranes moist Cardiovascular: S1S2 reg, no murmur Lungs: CTA bilateral, no rhonchi, no rales, no accessory muscle use Abdominal: Soft, nontender to palpation, no guarding, no appreciable organomegaly Ext: No gross muscle atrophy, no edema, no contractures Neuro: CN II-XI grossly intact, no focal neuro deficits Psych: Alert, oriented, appropriate affect Data Reviewed Today: Pertinent Labs: WBC 12.9, hemoglobin 16.1, creatinine 0.66, magnesium 2.2 Imaging: EKG independently interpreted from this morning, shows left bundle branch block Assessment and Plan: Active: Chest pain, ACS ruled out Mild COPD exacerbation Mild systolic CHF exacerbation Hypertensive urgency Nicotine dependence -Cardiology note reviewed, echocardiogram pending, and then discharge, losartan increased to 100 mg daily -Secondary hypertension workup also pending -Continue home Coreg 12.5 twice daily, continue Aldactone 50 daily -Patient also started on Lasix 40 twice daily -Continue atorvastatin 40 mg daily, on aspirin 81 mg daily -DuoNeb scheduled and as needed, continue Symbicort twice daily, oral prednisone 40 daily -Counseled regarding smoking cessation Alcohol dependence -Thiamine 100 mg twice daily, home dose -Monitor for withdrawals Leukocytosis, likely reactive and steroid-induced Chronic: Dyslipidemia DVT ppx: Lovenox Code status: Full code Anticipated discharge place: pending clinical course Anticipated discharge time: Pending clinical course Objective - Vital Signs Vital signs: Vital Signs Temp 97.7 F 05/14/23 11:57 Pulse 78 05/14/23 15:55 Resp 16 05/14/23 15:55 BP 121/78 05/14/23 11:57 Pulse Ox 95 05/14/23 11:57 FiO2 Intake & Output 05/13/23 05/14/23 05/14/23 18:59 06:59 18:59 Intake Total 476 540 236 Balance 476 540 236 Weight 96.6 kg Intake: Oral 476 540 236 Other: Voiding Method Toilet Toilet # Voids 2 2 - Labs CBC & Chem 7: 05/14/23 10:01 05/14/23 10:01 Labs: Abnormal Lab Results - Last 24 Hours (Table) 05/14/23 05/14/23 Range/Units 10:01 10:01 WBC 12.9 H (3.8-10.6) k/uL Hgb 16.1 H (11.4-16.0) gm/dL Hct 50.6 H (34.0-46.0) % RDW 15.6 H (11.5-15.5) % Neutrophils # 8.9 H (1.3-7.7) k/uL Sodium 136 L (137-145) mmol/L BUN 20 H (7-17) mg/dL
--- NOTE | 2023-05-14 23:51 | CA ---
Transthoracic Echo Report Name: Matilde Easley Age: 43 Gender: F : 1980 Exam Date: 05/14/2023 11:21 Exam Location: [place] [facility] Ht (in): 65 Wt (lb): 218 Ordering Physician: Shola Mathew MD Attending/Referring Phys: Butter Wrapper Blayne Lopez RDCS Procedure CPT: Indications: chf Cardiac Hx: Technical Quality: Fair Contrast 1: Total Dose (mL): Contrast 2: Total Dose (mL): MEASUREMENTS (Male / Female) Normal Values 2D ECHO LV Diastolic Diameter PLAX 5.6 cm 4.2 - 5.9 / 3.9 - 5.3 cm LV Systolic Diameter PLAX 3.6 cm IVS Diastolic Thickness 1.0 cm 0.6 - 1.0 / 0.6 - 0.9 cm LVPW Diastolic Thickness 1.0 cm 0.6 - 1.0 / 0.6 - 0.9 cm LV Relative Wall Thickness 0.4 Aortic Root Diameter 3.0 cm LA Systolic Diameter LX 4.4 cm 3.0 - 4.0 / 2.7 - 3.8 cm DOPPLER AV Peak Velocity 167.2 cm/s AV Peak Gradient 11.2 mmHg AV Mean Velocity 103.9 cm/s AV Mean Gradient 5.0 mmHg AV Velocity Time Integral 32.1 cm Mitral E Point Velocity 58.0 cm/s Mitral A Point Velocity 47.0 cm/s Mitral E to A Ratio 1.2 MV Deceleration Time 205.9 ms FINDINGS Left Ventricle Mildly increased posterior wall thickness. Mildly increased left ventricular diastolic diameter. Left ventricular ejection fraction is estimated at 45-50 %. Mild left ventricular hypertrophy. Right Ventricle Right ventricle not well visualized. Right Atrium Right atrium not well visualized. Left Atrium Moderately increased left atrial diameter. Mitral Valve Mild mitral regurgitation. Aortic Valve Aortic valve not well visualized. Tricuspid Valve Mild tricuspid regurgitation. Pulmonic Valve Pulmonic valve not well visualized. Pericardium Normal pericardium. Aorta Normal size aortic root and proximal ascending aorta. CONCLUSIONS Mild increased left ventricular wall thickness Left ventricular ejection fraction 45-50% Moderately increased left ventricular wall thickness Mild mitral regurgitation Mild tricuspid regurgitation Previewed by: Dr. Gbison Da Silva DO (Electronically Signed) Final Date: 14 May 2023 23:50
[2023-05-15 04:42] VITALS: TEMP 97.8
[2023-05-15 08:10] VITALS: BP 112/74; PULSE 68; RESP 15
[2023-05-15] MEDS: LOSARTAN 50 MG TAB PO SCH (09:57)
--- NOTE | 2023-05-15 12:55 | P.DS ---
Providers Date of admission: 05/12/23 21:12 Expected date of discharge: 05/15/23 Attending physician: Shola Mathew MD Consults: 05/12/23 21:11 Consult Physician Urgent Consulting Provider: [facility] Consult Reason/Comments: Chest pain, hypertensive urgency Do you want consulting provider notified?: Yes Primary care physician: Ben Serra Hospital Course: Discharge Diagnosis: Mild COPD exacerbation Mild systolic CHF exacerbation Hypertensive urgency Nicotine dependence Alcohol dependence Hospital Course: 42-year-old female with history of mild systolic CHF, EF 45 to 50%, nicotine dependence, alcohol dependence, hypertension, dyslipidemia presented with chest pain, back pain and shortness of breath. Chest x-ray in the emergency room revealed a borderline heart size with increased vascular markings. EKG revealed sinus rhythm with a left bundle branch block at 87 bpm (unchanged from prior EKG from 2019). Laboratory evaluation was remarkable for leukocytosis of 12.8 with troponin less than 0.012, proBNP 1180, glucose 106 and sodium 136. Patient admitted for chest pain, hypertensive urgency, mild CHF exacerbation. Cardiology consulted. Echo showed LVEF 45 to 50%, mild LVH, similar findings to prior echo. Patient being discharged home with new antihypertensives. Follow- up outpatient with cardiology. Patient seen and examined at bedside. Vital signs reviewed and stable. General: Nontoxic, no distress, appears at stated age Derm: Warm, dry Head: Atraumatic, normocephalic, symmetric Eyes: EOMI, no lid lag, anicteric sclera Mouth: No lip lesion, mucus membranes moist Cardiovascular: S1S2 reg, no murmur Lungs: CTA bilateral, no rhonchi, no rales, no accessory muscle use Abdominal: Soft, nontender to palpation, no guarding, no appreciable organomegaly Ext: No gross muscle atrophy, no edema, no contractures Neuro: CN II-XI grossly intact, no focal neuro deficits Psych: Alert, oriented, appropriate affect A total of 33 minutes of time were spent preparing this complex discharge summary. Patient was discharged on 05/15/2023 at 823. Plan - Discharge Summary Discharge Rx Participant: No New Discharge Prescriptions: New predniSONE [Deltasone] 40 mg PO DAILY #6 tab Furosemide [Lasix] 40 mg PO BID@0900,1600 #90 tab Losartan [Cozaar] 100 mg PO DAILY #90 tab Azithromycin [Zithromax] 500 mg PO DAILY #1 tab Continue Thiamine [Vitamin B-1] 100 mg PO BID-W/MEALS #30 tab carvediloL [Coreg*] 12.5 mg PO BID Albuterol Inhaler [Ventolin Hfa Inhaler] 2 puff INHALATION RT-Q6H PRN PRN Reason: Shortness Of Breath Fluticasone/Umeclidin/Vilanter [Trelegy Ellipta 100-62.5-25] 1 puff INHALATION RT-DAILY Spironolactone [Aldactone] 50 mg PO DAILY Rosuvastatin [Crestor] 20 mg PO DAILY Discontinued chlordiazePOXIDE HCl [Librium] 20 mg PO DIRECTED PRN PRN Reason: WITHDRAWL Discharge Medication List Thiamine [Vitamin B-1] 100 mg PO BID-W/MEALS #30 tab 08/20/19 [Rx] Albuterol Inhaler [Ventolin Hfa Inhaler] 2 puff INHALATION RT-Q6H PRN 05/12/23 [History] Fluticasone/Umeclidin/Vilanter [Trelegy Ellipta 100-62.5-25] 1 puff INHALATION RT-DAILY 05/12/23 [History] Rosuvastatin [Crestor] 20 mg PO DAILY 05/12/23 [History] Spironolactone [Aldactone] 50 mg PO DAILY 05/12/23 [History] carvediloL [Coreg*] 12.5 mg PO BID 05/12/23 [History] Azithromycin [Zithromax] 500 mg PO DAILY #1 tab 05/15/23 [Rx] Furosemide [Lasix] 40 mg PO BID@0900,1600 #90 tab 05/15/23 [Rx] Losartan [Cozaar] 100 mg PO DAILY #90 tab 05/15/23 [Rx] predniSONE [Deltasone] 40 mg PO DAILY #6 tab 05/15/23 [Rx] Follow up Appointment(s)/Referral(s): Ben Serra MD [Primary Care Provider] - 1-2 days Hunter Raza MD [STAFF PHYSICIAN] - 2 Weeks (cardio will call you with follow up appointment ) Patient Instructions/Handouts: COPD (Chronic Obstructive Pulmonary Disease) (DC), Chronic Hypertension (DC), Alcohol Dependence (ED) Activity/Diet/Wound Care/Special Instructions: Please see your PCP and cardiology. Discharge Disposition: HOME SELF-CARE
== END 2023-05-15 10:06 | disposition home or self-care (01) ==
LOC: EC 18:04 → INTOOBSV 21:12 → 3SCARD 21:12
PROVIDERS: ADMIT Internal Medicine; ATTEND Internal Medicine
DX: J44.1 Chronic obstructive pulmonary disease with (acute) exacerbation (principal); J20.9 Acute bronchitis, unspecified; I16.0 Hypertensive urgency; I11.0 Hypertensive heart disease with heart failure; I50.22 Chronic systolic (congestive) heart failure; M54.50 Low back pain, unspecified; I42.8 Other cardiomyopathies; I25.10 Atherosclerotic heart disease of native coronary artery without angina pectoris; E78.5 Hyperlipidemia, unspecified; D72.829 Elevated white blood cell count, unspecified; F10.20 Alcohol dependence, uncomplicated; F17.200 Nicotine dependence, unspecified, uncomplicated; Z79.51 Long term (current) use of inhaled steroids; Z79.82 Long term (current) use of aspirin; Z79.899 Other long term (current) drug therapy
CPT/HCPCS: 96372 ×2; 96376; 96374; 99285; 36415; 94640 ×4; 93005; 93306; 83835; 85379; 83880; 80061; 80053; 80048; 84443; 82533; 82088; 84244; 83735 ×2; 84484 ×2; 85025 ×2; 85610; 85730; 84145; 71046; G0378 ×4; J0360; J1650 ×2; J7512 ×3

== ENCOUNTER → 2023-05-19 | Outpatient (CLI) | payer BC ==
--- NOTE | 2023-05-19 11:15 | CT ---
EXAMINATION TYPE: CT angio chest CT DLP: 1111.90 mGycm, Automated exposure control for dose reduction was used. DATE OF EXAM: 05/19/2023 10:46 AM COMPARISON: 08/24/2016 CLINICAL INDICATION:Female, 43 years old with history of R07.9 chest pain; aneurysm, chest pain x 1 w sokaogon TECHNIQUE/CONTRAST: CTA scan of the thorax is performed with IV Contrast, patient injected with 100 mL of Isovue 370, MIP images are created and reviewed these are created on a separate workstation.. FINDINGS: Pulmonary Artery: There is no evidence for a filling defect within the pulmonary vasculature to sugge st acute pulmonary embolism. The pulmonary artery is of normal size. Lungs/Pleura: No evidence of focal consolidation, pleural effusion or pneumothorax. Right lower lobe 9 mm pulmonary nodule series 6 image 70. Airway: Large airways are patent. Heart: Heart is within normal limits for size. Vasculature: No evidence of aortic aneurysm. Mediastinum: No gross evidence of adenopathy. Musculoskeletal: No acute osseous abnormalities Soft Tissues: Unremarkable. Lower neck: No significant findings. Upper Abdomen: No significant findings. IMPRESSION: 1. No evidence of pulmonary embolism. 2. Right lower lobe 9 mm pulmonary nodule. Given patient's age this is likely granulomatous change. S hort-term follow-up in 3 months recommended to assess for stability. Follow up recommendations for incidental pulmonary nodules, if there are any, are per [place] [employer] or [employer]. https://radiopaedia.org/articles/vdepcbcjdm-[email or web address]?lang=us
== END | disposition home or self-care (01) ==
LOC: RADCTMAIN 09:51
PROVIDERS: ATTEND Family Medicine
DX: R91.1 Solitary pulmonary nodule (principal); R07.9 Chest pain, unspecified
CPT/HCPCS: 71275; Q9967

== ENCOUNTER 2023-05-22 11:52 | Emergency (ER) | payer BC ==
[2023-05-22 12:06] VITALS: TEMP 97.5
[2023-05-22] MEDS: SODIUM CHLORIDE 0.9% 1,000 ML IV STA (12:47)
[2023-05-22] MEDS: diphenhydrAMINE 50 MG/ML 1 ML VIAL IVP STA (12:47)
[2023-05-22] MEDS: METOCLOPRAMIDE 5 MG/ML 2 ML VIAL IVP STA (12:47)
[2023-05-22] MEDS: ACETAMINOPHEN TAB 500 MG TAB PO STA (12:48)
[2023-05-22 13:01] LABS: Basophils # (A) 0.1 k/uL (0-0.2); Basophils % (A) 1 %; Eosinophils # (A) 0.2 k/uL (0-0.7); Eosinophils % (A) 2 %; HCT 49.1 % (34.0-46.0); HGB 16.1 gm/dL (11.4-16.0); Lymphocytes % (A) 25 %; MCH 31.7 pg (25.0-35.0); MCHC 32.8 g/dL (31.0-37.0); MCV 96.5 fL (80.0-100.0); Mean Platelet Volume 7.4; Monocytes # (A) 0.5 k/uL (0-1.0); Monocytes % (A) 4 %; Neutrophils # (A) 8.1 k/uL (1.3-7.7); Neutrophils % (A) 67 %; Platelet Count 261 k/uL (150-450); RBC 5.09 m/uL (3.80-5.40); RDW 14.5 % (11.5-15.5); WBC 12.1 k/uL (3.8-10.6)
[2023-05-22 13:10] LABS: INR 0.9 (<1.2); Partial Thromboplastin Time 24.6 sec (22.0-30.0); Prothrombin Time 10.4 sec (10.0-12.5)
[2023-05-22 13:12] LABS: ALT 50 U/L (4-34); AST 43 U/L (14-36); African American GFR (CKD) >90 (>60 ml/min/1.73 sqM); Albumin 4.2 g/dL (3.5-5.0); Alkaline Phosphatase 95 U/L (38-126); Anion Gap 5 mmol/L; Blood Urea Nitrogen 19 mg/dL (7-17); Calcium 9.8 mg/dL (8.4-10.2); Carbon Dioxide 28 mmol/L (22-30); Chloride 99 mmol/L (98-107); Glucose 115 mg/dL (74-99); Magnesium 1.7 mg/dL (1.6-2.3); Non-African American GFR(CKD) >90 (>60 ml/min/1.73 sqM); Potassium 4.1 mmol/L (3.5-5.1); Sodium 132 mmol/L (137-145); Total Bilirubin 1.2 mg/dL (0.2-1.3); Total Protein 7.2 g/dL (6.3-8.2)
--- NOTE | 2023-05-22 13:34 | CT ---
EXAMINATION TYPE: CT brain wo con DATE OF EXAM: 05/22/2023 COMPARISON: 07/12/2017 HISTORY: Headache CT DLP: 1153.8 mGycm. Automated Exposure Control for Dose Reduction was Utilized. TECHNIQUE: CT scan of the head is performed without contrast. FINDINGS: The ventricles, basal cisterns and sulci over convexities are within normal limits. There is no mass effect or shift of midline structures. Tiny focal area of subtle hyperdensity in the left temporal lobe in the region of the parietal opercu lum which may be artifactual but given history of headache and tiny acute hemorrhage is not entirely excluded. The posterior fossa including the brainstem, fourth ventricle and cerebellopontine angles. The intraorbital contents appear normal and symmetric. Visualized paranasal sinuses and mastoid air cells are well aerated. The calvarium is intact. IMPRESSION: Tiny focus of hyperdensity in the left temporal lobe which possibly is artifactual in nature but give n history of headache, tiny 2 hemorrhage cannot be entirely excluded. Clinical correlation and short- term follow-up is recommended.
[2023-05-22 14:55] LABS: Appearance,Urine Clear (Clear); Bilirubin,Urine Negative (Negative); Blood,Urine Negative (Negative); Color,Urine Yellow; Glucose,Urine (UA) Negative (Negative); Ketones,Urine Negative (Negative); Leukocyte Esterase,Urine Negative (Negative); Mucus,Urine Rare /hpf; Nitrite,Urine Negative (Negative); Protein,Urine 2+ (Negative); RBC,Urine 1 /hpf (0-5); Specific Gravity,Urine 1.018 (1.001-1.035); Squamous Epithelial Cell,Urine <1 /hpf (0-4); Urobilinogen,Urine <2.0 mg/dL (<2.0); WBC,Urine 1 /hpf (0-5)
--- NOTE | 2023-05-22 17:41 | ED ---
General Adult HPI - General Chief complaint: Dizziness Stated complaint: headache Time Seen by Provider: 05/22/23 12:07 Source: patient, RN notes reviewed, old records reviewed Mode of arrival: ambulatory Limitations: no limitations - History of Present Illness Initial comments: Patient is a 43-year-old female presents emergency department with headache behind the right eye, lightheadedness/dizziness, as well as resolved blurry vision of the left eye and bilateral hand paresthesias. Symptoms started earlier today. States she only has a headache currently. Denies any other complaints. Recently discharged for hypertension. Denies any chest pain or shortness of breath. Denies any abdominal pain, nausea, vomiting. Denies any current blurry vision. States the pain is primarily behind the right eye. Does have a remote history of migraines. Presents for further evaluation at this time. - Related Data Home Medications Medication Instructions Recorded Confirmed Albuterol Inhaler [Ventolin Hfa 2 puff INHALATION RT-Q6H PRN 05/12/23 05/22/23 Inhaler] Fluticasone/Umeclidin/Vilanter 1 puff INHALATION RT-DAILY 05/12/23 05/22/23 [Trelegy Ellipta 100-62.5-25] Rosuvastatin [Crestor] 20 mg PO DAILY 05/12/23 05/22/23 Spironolactone [Aldactone] 50 mg PO DAILY 05/12/23 05/22/23 carvediloL [Coreg*] 12.5 mg PO BID 05/12/23 05/22/23 Previous Rx's Medication Instructions Recorded Thiamine [Vitamin B-1] 100 mg PO BID-W/MEALS #30 tab 08/20/19 Furosemide [Lasix] 40 mg PO BID@0900,1600 #90 tab 05/15/23 Losartan [Cozaar] 100 mg PO DAILY #90 tab 05/15/23 Allergies Allergy/AdvReac Type Severity Reaction Status Date / Time lisinopril Allergy Anaphylaxis Verified 05/22/23 16:22 Review of Systems ROS Statement: Those systems with pertinent positive or pertinent negative responses have been documented in the HPI. Review of Systems: CONST: Denies fever EYES: Denies blurry vision ENT: Denies nasal congestion C/V: Denies Chest pain RESP: Denies shortness of breath GI: Denies abdominal pain : Denies dysuria SKIN: Denies rash. MSK: Denies joint pain. NEURO: Endorses headache ROS Other: All systems not noted in ROS Statement are negative. 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PLACENTA, trigger finger and cyst removed Past Anesthesia/Blood Transfusion Reactions: No Reported Reaction Past Psychological History: No Psychological Hx Reported Smoking Status: Current every day smoker Past Alcohol Use History: Daily Past Drug Use History: None Reported - Past Family History Father Family Medical History: Cancer Additional Family Medical History / Comment(s): LEUKEMIA General Exam - General Exam Comments Initial Comments: General: Appears in moderate distress secondary to headache HEAD: Normal with no signs of head trauma. EYES: PERRLA, EOMI, conjunctiva normal, no discharge. Pupils are 3 mm and equal bilaterally. ENT: Hearing grossly intact, normal oropharynx. RESPIRATORY: Clear breath sounds bilaterally. No wheezes, rales, or rhonchi. C/V: Regular rate and rhythm. S1 and S2 auscultated, no edema, peripheral pulses 2+ and intact throughout ABD: Abd is soft, nontender, nondistended EXT: Normal range of motion, no obvious deformity SKIN: No rashes or lesions observed on exposed skin. NEURO: Alert and oriented x 4. NIH is 0. GCS of 15. No focal deficits. Limitations: no limitations Course Vital Signs 05/22/23 05/22/23 05/22/23 11:56 14:37 18:23 Temperature 97.5 F L Pulse Rate 76 67 68 Respiratory 18 16 18 Rate Blood Pressure 158/96 112/69 130/84 O2 Sat by Pulse 98 96 95 Oximetry Medical Decision Making - Medical Decision Making Was pt. sent in by a medical professional or institution (, PA, CONSTRUCTION PROJECT ASSISTANT, urgent care, hospital, or group home...) When possible be specific @ -No Did you speak to anyone other than the patient for history (EMS, parent, family, police, friend...)? What history was obtained from this source @ -No Did you review nursing and triage notes (agree or disagree)? Why? @ -I reviewed and agree with nursing and triage notes Were old charts reviewed (outside hosp., previous admission, EMS record, old EKG, old radiological studies, urgent care reports/EKG's, group home records)? Report findings @ -Old charts reviewed Differential Diagnosis (chest pain, altered mental status, abdominal pain women, abdominal pain men, vaginal bleeding, weakness, fever, dyspnea, syncope, headache, dizziness, GI bleed, back pain, seizure, CVA, palpatations, mental health, musculoskeletal)? @ -Differential Headache: Migraine, tension, cluster, carbon monoxide, central venous thrombosis, pension karma temporal arteritis, acute closure glaucoma, intercranial hemorrhage, mastoiditis, sinusitis, head injury, this is not meant to be an all-inclusive list. EKG interpreted by me (3pts min.). @ -As above X-rays interpreted by me (1pt min.). @ -None done CT interpreted by me (1pt min.). @ -CT brain reveals possible artifact versus vasculature versus pinpoint hemorrhage in the left temporal lobe. Relate clinically per radiology U/S interpreted by me (1pt. min.). @ -None done What testing was considered but not performed or refused? (CT, X-rays, U/S, labs)? Why? @ -None What meds were considered but not given or refused? Why? @ -None Did you discuss the management of the patient with other professionals (prof lama i.e. , PA, CONSTRUCTION PROJECT ASSISTANT, lab, RT, psych nurse, social media strategist, swimming pool plasterer helper, teacher, senior vice president and chief information officer, hospice case manager)? Give summary @ -I discussed with Dr. Garzon the findings on CT. He reviewed them and thinks it is more than likely artifact and possible vasculature but does recommend obtaining an MRI. He was able to arrange for stat MRI. I discussed the results with Dr. Garzon of the MRI and he was in agreement with discharge home on aspirin. The artifact finding is just vasculature. Was smoking cessation discussed for >3mins.? @ -No Was critical care preformed (if so, how long)? @ -Yes, 37 minutes Were there social determinants of health that impacted care today? How? (Homelessness, low income, unemployed, alcoholism, drug addiction, transportation, low edu. Level, literacy, decrease access to med. care, custodial, rehab)? @ -No Was there de-escalation of care discussed even if they declined (Discuss DNR or withdrawal of care, Hospice)? DNR status @ -No What co-morbidities impacted this encounter? (DM, HTN, Smoking, COPD, CAD, Cancer, CVA, ARF, Chemo, Hep., AIDS, mental health diagnosis, sleep apnea, morbid obesity)? @ -None Was patient admitted / discharged? Hospital course, mention meds given and route, prescriptions, significant lab abnormalities, going to OR and other pertinent info. @ -Based on the patient's presentation and physical exam, presents with headache as well as some nonspecific neurosymptoms earlier. States she typically does not have migraines and this is a relatively bad headache. Presents for further evaluation. Denies trauma. Vital signs are within acceptable limits. We will obtain CT brain after discussion as well as provide the patient with IV fluids, Reglan, Benadryl, Tylenol. Patient was in agreement this plan. EKG showed no signs of acute ischemia. Laboratory studies were within acceptable limits. CT imaging reveals possible pinpoint hemorrhage in the left parietal lobe versus artifact. On reevaluation, patient's feeling improved. No more headache. I discussed results with her. I did call neurology who agreed to evaluate the patient at bedside. Dr. Garzon evaluate the patient and recommended MRI. He does think it is likely artifact and probably a normal vasculature however recommends MRI which can be done stat at this time. Patient was in agreement this plan. Stat MRI was completed and does confirm that this was vasculature there was normal, no evidence of hemorrhage. I discussed results with the patient as well as Dr. Garzon. Patient will be discharged home at this time on aspirin. She was in agreement this plan. She does not require prescription she does have baby aspirin at home but no longer takes it. She will start taking it tomorrow. She was given 325 mg prior to discharge after ordered by Dr. Garzon. Strict return precautions discussed. I instructed the patient to follow up with their PCP in the next 1-3 days. I explained that the patient should return to the emergency department if they experience any worsening symptoms. Strict return precautions were discussed with the patient. The patient expressed understanding of these instructions. I answered all questions that the patient had. The patient was discharged home in good condition with their prescriptions and follow up information. Undiagnosed new problem with uncertain prognosis? @ -No Drug Therapy requiring intensive monitoring for toxicity (Heparin, Nitro, Insulin, Cardizem)? @ -No Were any procedures done? @ -No Diagnosis/symptom? @ -Headache/migraine Acute, or Chronic, or Acute on Chronic? @ -Acute Uncomplicated (without systemic symptoms) or Complicated (systemic symptoms)? @ -Complicated Side effects of treatment? @ -No Exacerbation, Progression, or Severe Exacerbation? @ -No Poses a threat to life or bodily function? How? (Chest pain, [place], [place], pneumonia, PE, COPD, DKA, ARF, appy, cholecystitis, CVA, Diverticulitis, Homicidal, Suicidal, threat to staff... and all critical care pts) @ -Unlikely - Lab Data Result diagrams: 05/22/23 12:52 05/22/23 12:52 Lab Results 05/22/23 05/22/23 05/22/23 Range/Units 12:52 12:52 12:52 WBC 12.1 H (3.8-10.6) k/uL RBC 5.09 (3.80-5.40) m/uL Hgb 16.1 H (11.4-16.0) gm/dL Hct 49.1 H (34.0-46.0) % MCV 96.5 (80.0-100.0) fL MCH 31.7 (25.0-35.0) pg MCHC 32.8 (31.0-37.0) g/dL RDW 14.5 (11.5-15.5) % Plt Count 261 (150-450) k/uL MPV 7.4 Neutrophils % 67 % Lymphocytes % 25 % Monocytes % 4 % Eosinophils % 2 % Basophils % 1 % Neutrophils # 8.1 H (1.3-7.7) k/uL Lymphocytes # 3.0 (1.0-4.8) k/uL Monocytes # 0.5 (0-1.0) k/uL Eosinophils # 0.2 (0-0.7) k/uL Basophils # 0.1 (0-0.2) k/uL PT 10.4 (10.0-12.5) sec INR 0.9 (<1.2) APTT 24.6 (22.0-30.0) sec Sodium 132 L (137-145) mmol/L Potassium 4.1 (3.5-5.1) mmol/L Chloride 99 (98-107) mmol/L Carbon Dioxide 28 (22-30) mmol/L Anion Gap 5 mmol/L BUN 19 H (7-17) mg/dL Creatinine 0.59 (0.52-1.04) mg/dL Est GFR (CKD-EPI)AfAm >90 (>60 ml/min/1.73 sqM) Est GFR (CKD-EPI)NonAf >90 (>60 ml/min/1.73 sqM) Glucose 115 H (74-99) mg/dL Estimated Ave Glu mg/dL mg/dL Hemoglobin A1c (<=6.0) % Calcium 9.8 (8.4-10.2) mg/dL Magnesium 1.7 (1.6-2.3) mg/dL Total Bilirubin 1.2 (0.2-1.3) mg/dL AST 43 H (14-36) U/L ALT 50 H (4-34) U/L Alkaline Phosphatase 95 (38-126) U/L Total Protein 7.2 (6.3-8.2) g/dL Albumin 4.2 (3.5-5.0) g/dL Urine Color Urine Appearance (Clear) Urine pH (5.0-8.0) Ur Specific [place] (1.001-1.035) Urine Protein (Negative) Urine Glucose (UA) (Negative) Urine Ketones (Negative) Urine Blood (Negative) Urine Nitrite (Negative) Urine Bilirubin (Negative) Urine Urobilinogen (<2.0) mg/dL Ur Leukocyte Esterase (Negative) Urine RBC (0-5) /hpf Urine WBC (0-5) /hpf Ur Squamous Epith Cells (0-4) /hpf Urine Mucus (None) /hpf 05/22/23 05/22/23 Range/Units 12:52 12:52 WBC (3.8-10.6) k/uL RBC (3.80-5.40) m/uL Hgb (11.4-16.0) gm/dL Hct (34.0-46.0) % MCV (80.0-100.0) fL MCH (25.0-35.0) pg MCHC (31.0-37.0) g/dL RDW (11.5-15.5) % Plt Count (150-450) k/uL MPV Neutrophils % % Lymphocytes % % Monocytes % % Eosinophils % % Basophils % % Neutrophils # (1.3-7.7) k/uL Lymphocytes # (1.0-4.8) k/uL Monocytes # (0-1.0) k/uL Eosinophils # (0-0.7) k/uL Basophils # (0-0.2) k/uL PT (10.0-12.5) sec INR (<1.2) APTT (22.0-30.0) sec Sodium (137-145) mmol/L Potassium (3.5-5.1) mmol/L Chloride (98-107) mmol/L Carbon Dioxide (22-30) mmol/L Anion Gap mmol/L BUN (7-17) mg/dL Creatinine (0.52-1.04) mg/dL Est GFR (CKD-EPI)AfAm (>60 ml/min/1.73 sqM) Est GFR (CKD-EPI)NonAf (>60 ml/min/1.73 sqM) Glucose (74-99) mg/dL Estimated Ave Glu mg/dL 117 mg/dL Hemoglobin A1c 5.7 (<=6.0) % Calcium (8.4-10.2) mg/dL Magnesium (1.6-2.3) mg/dL Total Bilirubin (0.2-1.3) mg/dL AST (14-36) U/L ALT (4-34) U/L Alkaline Phosphatase (38-126) U/L Total Protein (6.3-8.2) g/dL Albumin (3.5-5.0) g/dL Urine Color Yellow Urine Appearance Clear (Clear) Urine pH 7.0 (5.0-8.0) Ur Specific [place] 1.018 (1.001-1.035) Urine Protein 2+ H (Negative) Urine Glucose (UA) Negative (Negative) Urine Ketones Negative (Negative) Urine Blood Negative (Negative) Urine Nitrite Negative (Negative) Urine Bilirubin Negative (Negative) Urine Urobilinogen <2.0 (<2.0) mg/dL Ur Leukocyte Esterase Negative (Negative) Urine RBC 1 (0-5) /hpf Urine WBC 1 (0-5) /hpf Ur Squamous Epith Cells <1 (0-4) /hpf Urine Mucus Rare H (None) /hpf - EKG Data -: EKG Interpreted by Me EKG Comments: 12-lead Electrocardiogram Interpretation Note EKG was reviewed and interpreted by myself. 12-lead ECG performed at 1333 is interpreted by me as revealing normal sinus rhythm with chronic left bundle branch block at a rate of 63 beats per minute. [place] is normal. [place] interval is 205 ms, QRS duration is 174 ms, QTc is 487 ms.. There were no ST or T wave abnormalities to suggest myocardial ischemia or injury. R wave progression across the precordium was delayed. By my interpretation this EKG is non- diagnostic for acute ischemia. Critical Care Time Critical Care Time: Yes Total Critical Care Time: 37 Disposition Clinical Impression: Headache Disposition: HOME SELF-CARE Condition: Good Instructions (If sedation given, give patient instructions): Acute Headache (ED) Additional Instructions: take baby aspirin daily Is patient prescribed a controlled substance at d/c from ED?: No Referrals: Ben Serra MD [Primary Care Provider] - 1-2 days Time of Disposition: 18:00
--- NOTE | 2023-05-22 17:43 | MR ---
EXAMINATION TYPE: MR brain wo con DATE OF EXAM: 05/22/2023 5:05 PM CLINICAL INDICATION:Female, 43 years old with history of Numbness, rule out CVA vs hemorrhage; PHH, N umbness, evaluate for CVA vs hemorrhage. COMPARISON: CT 05/22/2023.. TECHNIQUE: Multi planar, multi sequence imaging was performed through the brain including: T1, T2, In version recovery, Diffusion weighted imaging, and gradient echo imaging. No gadolinium was given. FINDINGS: Nothing to correlate with CT finding. No high T1 signal seen in this region No evidence blo oming artifact on susceptibility weighted imaging. The araiza-white junctions, ventricular system, basa l cisterns appear unremarkable. Scattered foci of high T2 signal intensity are seen within the raman ventricular white matter. Midline structures show no abnormality. Diffusion-weighted imaging shows no evidence of restricted diffusion. The susceptibility weighted images do not reveal any evidence for micro-hemorrhage. The bone marrow signal is within normal limits. Paranasal sinuses and mastoid air cells: No significant paranasal sinus disease. Visualized orbits: Orbital contents are intact. IMPRESSION: 1. Tiny focus in the left temporal lobe seen on prior CT 05/22/2023 is felt to correlate with vasculat ure. No evidence for hemorrhage. No evidence of intracranial mass or acute/subacute infarct. 2. Nonspecific white matter changes, likely secondary to small vessel ischemic disease.
[2023-05-22] MEDS: ASPIRIN 81 MG PO STA (18:12)
[2023-05-22 18:35] VITALS: BP 130/84; PULSE 68; RESP 18
--- NOTE | 2023-05-22 18:59 | P.CNNES ---
History of Present Illness Consult date: 05/22/23 Requesting physician: Ramon Harris Reason for Consult: Headache History of Present Illness: Patient is a 43-year-old right-handed female with history of migraines, hypertension, hyperlipidemia, tobacco use, came to the hospital this morning at 11:52 AM for different type of headache. 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 This is not unusual, and she has had these symptoms in the past. However this time it was followed by severe pain behind the right eye that lasted about couple hours. She noticed her left hand fingers went numb, started with the tip of the thumb, then rolled it is very to the other fingertips and then extended to the left palm. It did not extend any further and the numbness resolved in about 5 minutes. There was no associated facial droop, slurred speech focal weakness or problem with the balance. She did feel slightly lightheaded with it. The headache itself lasted for about couple hours. Due to the symptoms she came to the ER. Vital signs on arrival blood pressure 158/96, pulse rate 76, temperature 97.5. Blood test shows WBC 12.1 hemoglobin 16.1, platelets 261. PT PTT normal. Sodium 132, potassium 4.1, normal renal functions. AST is 43, ALT 50. UA is negative. EKG shows sinus rhythm. CT head revealed tiny focus of hyperdensity in the left temporal lobe which probably is artifactual in nature, but given history of headache, tiny 2 mm hemorrhage cannot be entirely excluded. Clinical correlation and short-term follow-up is recommended. I personally reviewed CT head, and appears artifactual, as it only seen on a single axial image, and is not seen clearly in the coronal and sagittal images. Patient states that she has had these episodes of fuzzy vision since she was age 16. It occurs once every few years and last about 20 to 30 minutes followed by headache lasting for 30 to 60 minutes. She has not been diagnosed with migraines. The last time this happened was about a few years ago. It was not associated with hand paresthesias or that bad headache. Patient has history of hypertension for 5 years. Patient denies diabetes. She has history of hyperlipidemia. Also has history of complex migraines. Patient has smoked 1 pack/day for 25 years. Patient has 10 to 15-year history of alcoholism, drinks about 10-12 beers per day, most days of the week. She has not drank for last 1 week. She does not take any hormone replacement therapy. Patient has history of hypertension for 15 years. Review of Systems Constitutional: Denies chills, Denies fever Eyes: bilateral blurred vision, denies diplopia, denies pain, denies loss of vision Ears: deny: decreased hearing, ear discharge Ears, nose, mouth and throat: Reports headache, Denies sore throat, Denies vertigo Cardiovascular: Reports lightheadedness, Denies chest pain, Denies shortness of breath Respiratory: Denies cough, Denies excessive sputum Gastrointestinal: Reports nausea, Reports vomiting, Denies abdominal pain, Denies diarrhea Genitourinary: Reports stress incontinence, Denies dysuria, Denies hematuria Musculoskeletal: Denies low back pain, Denies myalgias, Denies neck pain Integumentary: Denies pruritus, Denies rash Neurological: Reports as per HPI Psychiatric: Denies anxiety, Denies depression Endocrine: Reports fatigue, Denies weight change Hematologic/Lymphatic: Denies easy bleeding, Denies easy bruising 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PLACENTA, trigger finger and cyst removed Past Anesthesia/Blood Transfusion Reactions: No Reported Reaction Past Psychological History: No Psychological Hx Reported Smoking Status: Current every day smoker Past Alcohol Use History: Daily Past Drug Use History: None Reported - Past Family History Father Family Medical History: Cancer Additional Family Medical History / Comment(s): LEUKEMIA Medications and Allergies Home Medications Medication Instructions Recorded Confirmed Type Thiamine [Vitamin B-1] 100 mg PO BID-W/MEALS #30 tab 08/20/19 05/22/23 Rx Albuterol Inhaler [Ventolin Hfa 2 puff INHALATION RT-Q6H PRN 05/12/23 05/22/23 History Inhaler] Fluticasone/Umeclidin/Vilanter 1 puff INHALATION RT-DAILY 05/12/23 05/22/23 History [Trelegy Ellipta 100-62.5-25] Rosuvastatin [Crestor] 20 mg PO DAILY 05/12/23 05/22/23 History Spironolactone [Aldactone] 50 mg PO DAILY 05/12/23 05/22/23 History carvediloL [Coreg*] 12.5 mg PO BID 05/12/23 05/22/23 History Furosemide [Lasix] 40 mg PO BID@0900,1600 #90 tab 05/15/23 05/22/23 Rx Losartan [Cozaar] 100 mg PO DAILY #90 tab 05/15/23 05/22/23 Rx Allergies Allergy/AdvReac Type Severity Reaction Status Date / Time lisinopril Allergy Anaphylaxis Verified 05/22/23 16:22 Physical Examination - Vital Signs Vital Signs: Vital Signs Temp Pulse Resp BP Pulse Ox 05/22/23 14:37 67 16 112/69 96 05/22/23 11:56 97.5 F L 76 18 158/96 98 Intake and Output 05/22/23 05/22/23 05/22/23 06:59 14:59 22:59 Other: Weight 95.254 kg Patient is a middle aged female, in no acute distress. Patient is alert awake oriented to time place and person. Speech and language functions are normal. Patient can name and repeat very well. No aphasia or dysarthria. Attention, concentration and fund of knowledge is adequate. On cranial nerve examination, pupils are equal, round and reacting to light, visual jenkins are full on confrontation, with no neglect on double simultaneous stimulation. Extraocular muscles are intact with no nystagmus. Face is symmetric, tongue protrudes to the midline. Palatal elevation and sensation normal, hearing and shoulder shrug normal, facial sensation normal. On muscle strength testing, there is no pronator drift and the strength is normal in arms and legs distally and proximally. Deep tendon reflexes are symmetric 1 at the biceps, 1 brachioradialis, trace at the knees, 1+ ankles and plantars downgoing. Sensory to touch is equal with no neglect on double simultaneous stimulation. Cerebellar function showed no ataxia for [id number] testing. No dysdiadochokinesia. No ataxia for [id number] testing on either side. Tone and bulk of muscles normal. Gait deferred.. On general examination, there is no carotid bruit or murmur, S1-S2 audible. Chest is clear on consultation. Abdomen is soft nontender. No organomegaly, bowel sounds present. Peripheral pulses are present. No peripheral edema. Results - Laboratory Findings CBC and BMP: 05/22/23 12:52 05/22/23 12:52 Abnormal Lab Findings: Abnormal Labs 05/22/23 05/22/23 05/22/23 12:52 12:52 12:52 WBC 12.1 H Hgb 16.1 H Hct 49.1 H Neutrophils # 8.1 H Sodium 132 L BUN 19 H Glucose 115 H AST 43 H ALT 50 H Urine Protein 2+ H Urine Mucus Rare H Assessment and Plan Assessment: * Possible migraine with aura versus TIA. Patient does have multiple vascular risk factors including hypertension, hyperlipidemia, tobacco use and alcoholism. * Abnormal CT head, with evidence of possible tiny focus of hyperdensity in the left temporal lobe. Suspected artifact, although need to rule out petechial hemorrhage. * Hypertension * Hyperlipidemia, not well-controlled. * Tobacco use * Alcoholism Plan: MRI of the brain without contrast, evaluate for acute CVA 2-D echo performed on 05/13/2023 revealed mildly increased left ventricular wall thickness. Left ventricular EF is 45 to 50%. Moderately increased left atrial diameter. Mild MR. CTA head and neck performed previously on 07/12/2017 showed minimal to mild atherosclerotic changes at the bilateral proximal internal carotid arteries. This results in a mild, 20% stenosis on the right, no significant stenosis on the left. No significant stenosis, arterial occlusion or aneurysm intracranially. Fasting a.m. lipid panel from 05/13/2023 revealed cholesterol 245, LDL 155, HDL 63, triglycerides 245. Patient currently on Crestor 20 mg daily, which is apparently not working. Previously patient was on Lipitor 40 mg daily. Patient recommended to follow-up with primary physician, either increasing the dose of Crestor, or giving higher dose of Lipitor 80 mg. Alternatively newer agents could be considered. Hemoglobin A1c checked, 5.7, which is normal. Optimize control of blood pressure Patient to start aspirin regimen. Neurology will continue to follow after MRI. Thank you for the consult. Addendum: MRI of the brain revealed tiny focus in the left temporal lobe seen on prior CT 05/22/2023 is felt to correlate with vasculature. No evidence for hemorrhage. No evidence of intracranial mass or acute/subacute infarct. Nonspecific white matter changes, likely secondary to small vessel ischemic disease. I personally reviewed MRI, agree with the findings. Patient given aspirin 324 mg x 1 dose, and will be started on aspirin 81 mg daily indefinitely. Recommend aggressive control of stroke risk factors including optimization of the control of hypertension, aggressive management of hyperlipidemia, tobacco and alcohol cessation. Neurologically clear. Time with Patient: Greater than 30
== END 2023-05-22 18:24 | disposition home or self-care (01) ==
LOC: EC 11:52
DX: R51.9 Headache, unspecified (principal); I10 Essential (primary) hypertension; E78.5 Hyperlipidemia, unspecified; F17.200 Nicotine dependence, unspecified, uncomplicated; Z79.899 Other long term (current) drug therapy; Z88.8 Allergy status to other drugs, medicaments and biological substances; Z86.73 Personal history of transient ischemic attack (TIA), and cerebral infarction without residual deficits
CPT/HCPCS: 36415; 93005; 80053; 83735; 85025; 85610; 85730; 81001; 83036; 70450; 70551; 99291; 96374; 96375; 96361 ×2; J1200; J2765

== ENCOUNTER → 2023-06-29 | Outpatient (CLI) | payer BC ==
--- NOTE | 2023-06-29 08:48 | CT ---
EXAMINATION TYPE: CT abdomen pelvis w con DATE OF EXAM: 06/29/2023 COMPARISON: 02/14/2023 HISTORY: Rectal pain and pressure, rectal bleeding bright red, presence of hemorrhoids. CT DLP: 1755.30 mGycm CONTRAST: CT scan of the abdomen and pelvis is performed with Oral Contrast and with IV Contrast, patient injec allen with 100 mL of Isovue 300. FINDINGS: LUNG BASES-: No visible nodule. No infiltrate. LIVER/GB: No calcified gallstones. No space occupying hepatic lesion. Biliary tree is of normal ca liber. PANCREAS: No inflammation. No distinct mass. SPLEEN: No splenic enlargement. No lesion seen. ADRENALS: No nodule. No thickening. KIDNEYS/BLADDER: No hydronephrosis. No nephrolithiasis. No distinct renal mass. Urinary bladder g rossly unremarkable. BOWEL: Normal appendix. Normal bowel caliber. No inflammation. Scattered sigmoid diverticulosis wit hout diverticulitis. No visible rectal mass. Clinical correlation advised. GENITAL ORGANS: No gross abnormality. LYMPH NODES: No greater than 1cm abdominal or pelvic lymph nodes are appreciated. AORTA: No significant abnormality. OSSEOUS STRUCTURES: No significant abnormality is seen. OTHER: No significant additional abnormality is seen. IMPRESSION: 1. Scattered sigmoid diverticulosis without diverticulitis. No visible rectal mass. Clinical correlat ion advised.
== END | disposition home or self-care (01) ==
LOC: RADCTMAIN 06:28
PROVIDERS: ATTEND Family Medicine
DX: K57.30 Diverticulosis of large intestine without perforation or abscess without bleeding (principal); K64.9 Unspecified hemorrhoids; K62.89 Other specified diseases of anus and rectum; K62.5 Hemorrhage of anus and rectum
CPT/HCPCS: 74177; Q9967

== ENCOUNTER 2023-11-20 17:58 | Emergency (ER) | payer BC ==
[2023-11-20] MEDS ORDERED: POTASSIUM CHLORIDE ER 20 MEQ TAB.ER PO ONE (19:30)
[2023-11-20] MEDS ORDERED: CALCIUM GLUCONATE IN NACL 100 ML IVPB ONE (19:34)
[2023-11-20] MEDS ORDERED: MAGNESIUM SULFATE-D5W PMX 200 ML IVPB ONE (21:06)
[2023-11-21] MEDS ORDERED: MAGNESIUM OXIDE 400 MG TAB ONE ×2 (00:04)
[2023-11-21] MEDS ORDERED: POTASSIUM CHLORIDE ER 20 MEQ TAB.ER PO ONE (00:04)
[2023-11-21] MEDS ORDERED: LORazepam 1 MG TAB ONE (00:05)
--- NOTE | 2023-12-14 08:03 | CT ---
Report Patient: Matilde Easley Ordering Physician: Unknown, Unknown ID: [id number] Phone, Pager: Phone: N/A Pager: N/A : 1980 Age/Gender: 43Y, F Primary Location: N/A Procedure: ABD/PEL W/ Study Date: 11/20/2023 8:28:00 PM EXAMINATION TYPE: CT abdomen pelvis w con DATE OF EXAM: 11/20/2023 COMPARISON: 06/29/2023 HISTORY: 43-year-old female bloating, constipation TECHNIQUE: Contiguous axial scanning of the abdomen and pelvis following administration of 100 ml Iso jayna 300 IV contrast. Delayed images through the kidneys and coronal/sagittal reconstructions perform ed. CT DLP: 1457.2 mGycm Automated exposure control for dose reduction was used. FINDINGS: Heart upper limits of normal in size without pericardial effusion. Lung bases clear without pleural effusion. There is new hepatomegaly measuring up to 21.1 cm versus 18.1 cm, previously. Diminished attenuation of the liver parenchyma. No focal liver lesion or biliary ductal dilatation. Portal venous system is patent. Gallbladder, adrenal glands, kidneys, and pancreas within normal limits. There is similar mild megaly at 14.4 cm. No dilated small bowel, free fluid, or free air. No mesenteric or retroperitoneal lymphadenopathy. Normal appendix. Scattered mild stool. There is sigmoid diverticulosis. Segmental circumferential wall thickening mid to distal sigmoid colon appears unchanged compared to 02/04/2023. No inflammation is identified center ed along a diverticula. Bladder underdistended. Uterus is anteverted. There is a 2.2 cm dominant follicle left ovary and 1.8 cm and the right ovary. No abnormal fluid collection in the pelvis or pelvic lymphadenopathy. Bones: No osseous destructive process. Hypertrophic facet arthropathy lower lumbar spine. IMPRESSION: 1. NEW HEPATOMEGALY AT 21.1 CM WITH SEVERE HEPATIC STEATOSIS. APPROPRIATE CLINICAL MANAGEMENT IS ADVI SED. 2. LONG SEGMENT CIRCUMFERENTIAL WALL THICKENING INVOLVING THE MID TO DISTAL SIGMOID COLON. UNCLEAR IF THIS APPEARANCE IS DUE TO ADHERENT STOOL MATERIAL. CORRELATE FOR NONSPECIFIC MILD TO MODERATE COLITI S. GIVEN A SIMILAR APPEARANCE ON 02/04/2023, CONSIDER DIRECT VISUALIZATION. 3. SIGMOID DIVERTICULOSIS. NO INFLAMMATION CENTERED ALONG A DIVERTICULA TO INDICATE ACUTE DIVERTICULI TIS. 4. FOLLICULAR CHANGE IN THE OVARIES.
--- NOTE | 2023-12-28 14:40 | XR ---
Report Patient: Matilde Easley Ordering Physician: Unknown, Unknown ID: [id number] Phone, Pager: Phone: N/A Pager: N/A : 1980 Age/Gender: 43Y, F Primary Location: N/A Procedure: XR chest 2V Study Date: 11/20/2023 8:13:24 PM EXAMINATION TYPE: XR chest 2V DATE OF EXAM: 11/20/2023 COMPARISON: 05/12/2023 HISTORY: 43 year-old female shortness of breath TECHNIQUE: PA and lateral views FINDINGS: The cardiomediastinal silhouette, aorta, and pulmonary vasculature are within normal limits. Mild int erstitial prominence and peribronchial cuffing. Otherwise, no consolidation or pleural effusion. IMPRESSION: Correlate for bronchitis or asthma. No focal infiltrate seen.
== END 2023-11-21 01:42 | disposition home or self-care (01) ==
LOC: EC 17:58
DX: E87.6 Hypokalemia (principal)
CPT/HCPCS: 71046; 74177; 93005; 96365; 96367; 99284

== ENCOUNTER → 2024-04-18 | Outpatient (CLI) | payer BC ==
[2024-04-18 10:10] LABS: Basophils # (A) 0.1 k/uL (0-0.2); Basophils % (A) 1 %; Eosinophils # (A) 0.2 k/uL (0-0.7); Eosinophils % (A) 3 %; HCT 47.5 % (34.0-46.0); HGB 15.9 gm/dL (11.4-16.0); Lymphocytes # (A) 1.9 k/uL (1.0-4.8); Lymphocytes % (A) 30 %; MCH 33.4 pg (25.0-35.0); MCHC 33.4 g/dL (31.0-37.0); Macrocytosis Slight; Mean Platelet Volume 8.7; Monocytes # (A) 0.3 k/uL (0-1.0); Monocytes % (A) 4 %; Neutrophils # (A) 3.8 k/uL (1.3-7.7); Neutrophils % (A) 61 %; Platelet Count 200 k/uL (150-450); RBC 4.75 m/uL (3.80-5.40); RDW 14.4 % (11.5-15.5); WBC 6.3 k/uL (3.8-10.6)
[2024-04-18 10:16] LABS: ALT 65 U/L (4-34); AST 73 U/L (14-36); African American GFR (CKD) >90 (>60 ml/min/1.73 sqM); Albumin 3.8 g/dL (3.5-5.0); Albumin/Globulin Ratio 1.2; Alkaline Phosphatase 112 U/L (38-126); Anion Gap 8 mmol/L; Blood Urea Nitrogen 8 mg/dL (7-17); Calcium 9.2 mg/dL (8.4-10.2); Carbon Dioxide 30 mmol/L (22-30); Chloride 98 mmol/L (98-107); Globulin 3.1 g/dL; Glucose 123 mg/dL (74-99); Magnesium 1.6 mg/dL (1.6-2.3); Non-African American GFR(CKD) >90 (>60 ml/min/1.73 sqM); Potassium 3.7 mmol/L (3.5-5.1); Sodium 136 mmol/L (137-145); Total Bilirubin 0.4 mg/dL (0.2-1.3); Total Protein 6.9 g/dL (6.3-8.2)
== END | disposition home or self-care (01) ==
LOC: LABWHC1 07:19
PROVIDERS: ATTEND Family Medicine
DX: E87.6 Hypokalemia (principal); E04.9 Nontoxic goiter, unspecified; R05.9 Cough, unspecified
CPT/HCPCS: 36415; 80053; 83735; 84443; 84481; 85025

== ENCOUNTER 2024-04-25 00:46 | Inpatient (IN) | payer BC ==
[2024-04-25] MEDS: ALBUTEROL NEBULIZED 2.5 MG/3 ML INHALATION STA (01:32)
[2024-04-25] MEDS: IPRATROPIUM-ALBUTEROL 3 ML NEB INHALATION STA (01:32)
--- NOTE | 2024-04-25 01:36 | ED ---
General Adult HPI - General Chief complaint: Shortness of Breath Stated complaint: Difficulty Breathing Time Seen by Provider: 04/25/24 00:51 Source: patient, RN notes reviewed, old records reviewed Mode of arrival: ambulatory Limitations: no limitations - History of Present Illness Initial comments: 44-year-old female presenting for evaluation of increased cough dyspnea. Patient states she has been sick for several weeks but acutely worsened over the past 1 to 2 days. She developed fever. She has had increased cough and dyspnea. She is a current smoker. No central chest pain. No lower extremity pain or swelling. - Related Data Home Medications Medication Instructions Recorded Confirmed Albuterol Inhaler [Ventolin Hfa 2 puff INHALATION RT-Q6H PRN 05/12/23 05/22/23 Inhaler] Fluticasone/Umeclidin/Vilanter 1 puff INHALATION RT-DAILY 05/12/23 05/22/23 [Trelegy Ellipta 100-62.5-25] Rosuvastatin [Crestor] 20 mg PO DAILY 05/12/23 05/22/23 Spironolactone [Aldactone] 50 mg PO DAILY 05/12/23 05/22/23 carvediloL [Coreg*] 12.5 mg PO BID 05/12/23 05/22/23 Previous Rx's Medication Instructions Recorded Thiamine [Vitamin B-1] 100 mg PO BID-W/MEALS #30 tab 08/20/19 Furosemide [Lasix] 40 mg PO BID@0900,1600 #90 tab 05/15/23 Losartan [Cozaar] 100 mg PO DAILY #90 tab 05/15/23 Allergies Allergy/AdvReac Type Severity Reaction Status Date / Time lisinopril Allergy Anaphylaxis Verified 04/25/24 00:53 Review of Systems ROS Statement: Those systems with pertinent positive or pertinent negative responses have been documented in the HPI. ROS Other: All systems not noted in ROS Statement are negative. 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PLACENTA, trigger finger and cyst removed Past Anesthesia/Blood Transfusion Reactions: No Reported Reaction Past Psychological History: No Psychological Hx Reported Smoking Status: Current every day smoker Past Alcohol Use History: Daily, Occasional Past Drug Use History: None Reported - Past Family History Father Family Medical History: Cancer Additional Family Medical History / Comment(s): LEUKEMIA General Exam Limitations: no limitations General appearance: alert, in no apparent distress Head exam: Present: atraumatic, normocephalic Eye exam: Present: normal appearance, PERRL Respiratory exam: Present: respiratory distress, wheezes, decreased breath sounds, prolonged expiratory Cardiovascular Exam: Present: normal rhythm, tachycardia GI/Abdominal exam: Present: soft. Absent: distended, tenderness, guarding Extremities exam: Present: normal inspection, normal capillary refill. Absent: calf tenderness Neurological exam: Present: alert, oriented X3, CN II-XII intact. Absent: motor sensory deficit Skin exam: Present: warm, dry, intact Course Vital Signs 04/25/24 04/25/24 04/25/24 00:54 00:59 01:34 Temperature 102.2 F H Pulse Rate 107 H 94 Respiratory 18 Rate Blood Pressure 164/114 O2 Sat by Pulse 87 L 91 L Oximetry 04/25/24 04/25/24 04/25/24 01:52 02:07 02:41 Temperature 100.0 F H Pulse Rate 93 96 Respiratory 18 Rate Blood Pressure 144/85 O2 Sat by Pulse 90 L Oximetry 04/25/24 04/25/24 02:51 03:04 Temperature 99.5 F 98.9 F Pulse Rate 90 87 Respiratory 16 19 Rate Blood Pressure 138/88 O2 Sat by Pulse 93 L 93 L Oximetry - Reevaluation(s) Reevaluation #1: 04/25/24 03:11 CMP pending Medical Decision Making - Medical Decision Making Was pt. sent in by a medical professional or institution (, PA, G[employer], urgent care, hospital, or [place] [facility] facility...) When possible be specific @ -No Did you speak to anyone other than the patient for history (EMS, parent, family, police, friend...)? What history was obtained from this source @ -No Did you review nursing and triage notes (agree or disagree)? Why? @ -I reviewed and agree with nursing and triage notes Were old charts reviewed (outside hosp., previous admission, EMS record, old EKG, old radiological studies, urgent care reports/EKG's, [place] [facility] facility records)? Report findings @ -No old charts were reviewed Differential Diagnosis (chest pain, altered mental status, abdominal pain women, abdominal pain men, vaginal bleeding, weakness, fever, dyspnea, syncope, hea dache, dizziness, GI bleed, back pain, seizure, CVA, palpatations, mental health, musculoskeletal)? @ -Not applicable EKG interpreted by me (3pts min.). @Sinus rhythm left bundle branch block history of left bundle branch block, rate of 99, PA interval 183, QRS duration 172, QTc 459 X-rays interpreted by me (1pt min.). @ -Chest x-ray negative for acute cardiopulmonary findings CT interpreted by me (1pt min.). @ -None done U/S interpreted by me (1pt. min.). @ -None done What testing was considered but not performed or refused? (CT, X-rays, U/S, labs)? Why? @ -None What meds were considered but not given or refused? Why? @ -None Did you discuss the management of the patient with other professionals (professionals i.e. , PA, G[employer], lab, RT, psych nurse, web content & social media manager, custom bow maker, teacher, media liaison officer, correctional case manager)? Give summary @ -[Yes, Dr. Mathew who will admit Was smoking cessation discussed for >3mins.? @ -No Was critical care preformed (if so, how long)? @ -[Yes, 35 minutes Were there social determinants of health that impacted care today? How? (Homelessness, low income, unemployed, alcoholism, drug addiction, transportation, low edu. Level, literacy, decrease access to med. care, [facility], rehab)? @ -No Was there de-escalation of care discussed even if they declined (Discuss DNR or withdrawal of care, Hospice)? DNR status @ -No What co-morbidities impacted this encounter? (DM, HTN, Smoking, COPD, CAD, Cancer, CVA, ARF, Chemo, Hep., AIDS, mental health diagnosis, sleep apnea, morbid obesity)? @ -[COPD, current smoker Was patient admitted / discharged? Hospital course, mention meds given and route, prescriptions, significant lab abnormalities, going to OR and other pertinent info. @ -44-year-old female history of COPD presenting with increased cough and dyspnea. Patient febrile upon arrival. She is hypoxic requiring supplemental oxygen. Wheezing bilaterally. Normal CBC without leukocytosis, CMP hemolyzed and repeat blood draw pending at the time of this dictation. Patient has a normal lactic acid. Influenza viral swab is positive. The patient is started on Tamiflu in addition to steroids albuterol, Atrovent. She will be admitted for further management of COPD exacerbation secondary to influenza with hypoxia Undiagnosed new problem with uncertain prognosis? @ -[No Drug Therapy requiring intensive monitoring for toxicity (Heparin, Nitro, Insul in, Cardizem)? @ -No Were any procedures done? @ -No Diagnosis/symptom? @ -COPD exacerbation, influenza A Acute, or Chronic, or Acute on Chronic? @ -Default Uncomplicated (without systemic symptoms) or Complicated (systemic symptoms)? @ -Default Side effects of treatment? @ -No Exacerbation, Progression, or Severe Exacerbation? @ -No Poses a threat to life or bodily function? How? (Chest pain, [place], [place], pneumonia, PE, COPD, DKA, ARF, appy, cholecystitis, CVA, Diverticulitis, Homicidal, Aida cidal, threat to staff... and all critical care pts) @Yes, respiratory failure, hypoxia - Lab Data Result diagrams: 04/25/24 01:32 Lab Results 04/25/24 04/25/24 04/25/24 Range/Units 01:32 01:32 01:32 WBC 4.0 (3.8-10.6) k/uL RBC 4.87 (3.80-5.40) m/uL Hgb 16.0 (11.4-16.0) gm/dL Hct 47.5 H (34.0-46.0) % MCV 97.4 (80.0-100.0) fL MCH 32.8 (25.0-35.0) pg MCHC 33.7 (31.0-37.0) g/dL RDW 15.0 (11.5-15.5) % Plt Count 103 L (150-450) k/uL MPV 8.3 Neutrophils % 79 % Lymphocytes % 13 % Monocytes % 6 % Eosinophils % 1 % Basophils % 0 % Neutrophils # 3.1 (1.3-7.7) k/uL Lymphocytes # 0.5 L (1.0-4.8) k/uL Monocytes # 0.3 (0-1.0) k/uL Eosinophils # 0.0 (0-0.7) k/uL Basophils # 0.0 (0-0.2) k/uL PT 11.5 (10.0-12.5) sec INR 1.0 (<1.2) APTT 23.2 (22.0-30.0) sec Plasma Lactic Acid Elmer (0.7-2.0) mmol/L Influenza Type A (PCR) Detected A (Not Detectd) Influenza Type B (PCR) Not Detected (Not Detectd) RSV (PCR) Not Detected (Not Detectd) SARS-CoV-2 (PCR) Not Detected (Not Detectd) 04/25/24 Range/Units 01:32 WBC (3.8-10.6) k/uL RBC (3.80-5.40) m/uL Hgb (11.4-16.0) gm/dL Hct (34.0-46.0) % MCV (80.0-100.0) fL MCH (25.0-35.0) pg MCHC (31.0-37.0) g/dL RDW (11.5-15.5) % Plt Count (150-450) k/uL MPV Neutrophils % % Lymphocytes % % Monocytes % % Eosinophils % % Basophils % % Neutrophils # (1.3-7.7) k/uL Lymphocytes # (1.0-4.8) k/uL Monocytes # (0-1.0) k/uL Eosinophils # (0-0.7) k/uL Basophils # (0-0.2) k/uL PT (10.0-12.5) sec INR (<1.2) APTT (22.0-30.0) sec Plasma Lactic Acid Elmer 0.8 (0.7-2.0) mmol/L Influenza Type A (PCR) (Not Detectd) Influenza Type B (PCR) (Not Detectd) RSV (PCR) (Not Detectd) SARS-CoV-2 (PCR) (Not Detectd) Critical Care Time Critical Care Time: Yes Total Critical Care Time: 35 Disposition Clinical Impression: Acute exacerbation of chronic obstructive pulmonary disease, Influenza A Disposition: ADMITTED IP TO THIS HOSP Condition: Stable Is patient prescribed a controlled substance at d/c from ED?: No Referrals: Ben Serra MD [Primary Care Provider] - 1-2 days Time of Disposition: 03:13
[2024-04-25] MEDS: SODIUM CHLORIDE 0.9% 500 ML 500 ML IV ONE (01:52)
[2024-04-25] MEDS: AZITHROMYCIN 500 MG in SODIUM CHLORIDE 0.9% 250 ML IVPB STA (01:52)
[2024-04-25] MEDS: methylPREDNISolone SOD SUCCI 125 MG/2 ML VIAL IV STA (01:56)
[2024-04-25 02:00] LABS: Basophils % (A) 0 %; Eosinophils % (A) 1 %; HCT 47.5 % (34.0-46.0); Lymphocytes # (A) 0.5 k/uL (1.0-4.8); Lymphocytes % (A) 13 %; MCH 32.8 pg (25.0-35.0); MCHC 33.7 g/dL (31.0-37.0); MCV 97.4 fL (80.0-100.0); Mean Platelet Volume 8.3; Monocytes # (A) 0.3 k/uL (0-1.0); Monocytes % (A) 6 %; Neutrophils # (A) 3.1 k/uL (1.3-7.7); Neutrophils % (A) 79 %; Platelet Count 103 k/uL (150-450); RBC 4.87 m/uL (3.80-5.40)
[2024-04-25] MEDS: ACETAMINOPHEN TAB 500 MG TAB PO STA (02:03)
[2024-04-25 02:24] LABS: Partial Thromboplastin Time 23.2 sec (22.0-30.0); Prothrombin Time 11.5 sec (10.0-12.5)
[2024-04-25 03:06] LABS: Influenza A Detected (Not Detectd); Influenza B Not Detected (Not Detectd); RSV Not Detected (Not Detectd)
[2024-04-25] MEDS ORDERED: NALOXONE 0.4 MG/ML 1 ML VIAL IVP PRN (03:09)
[2024-04-25] MEDS ORDERED: ACETAMINOPHEN TAB 325 MG TAB PO PRN (03:09)
[2024-04-25 03:14] LABS: ALT 168 U/L (4-34); AST 427 U/L (14-36); African American GFR (CKD) >90 (>60 ml/min/1.73 sqM); Albumin 3.6 g/dL (3.5-5.0); Alkaline Phosphatase 104 U/L (38-126); Anion Gap 8 mmol/L; Blood Urea Nitrogen 12 mg/dL (7-17); Calcium 8.9 mg/dL (8.4-10.2); Carbon Dioxide 30 mmol/L (22-30); Chloride 91 mmol/L (98-107); Glucose 106 mg/dL (74-99); Magnesium 1.4 mg/dL (1.6-2.3); Non-African American GFR(CKD) >90 (>60 ml/min/1.73 sqM); Potassium 3.3 mmol/L (3.5-5.1); Sodium 129 mmol/L (137-145); Total Bilirubin 0.9 mg/dL (0.2-1.3); Total Protein 6.5 g/dL (6.3-8.2)
[2024-04-25] MEDS: SODIUM CHLORIDE 0.9% 1,000 ML IV SCH (03:50)
--- NOTE | 2024-04-25 04:08 | XR ---
EXAM: XR Chest, 2 Views CLINICAL HISTORY: Difficulty breathing TECHNIQUE: Frontal and lateral views of the chest. COMPARISON: Chest 2 views dated 11/20/2023 FINDINGS: Lungs: No focal consolidation. The pulmonary vasculature demonstrates no significant radiographic abnormality. Pleural space: Unremarkable. No pneumothorax. No large pleural effusion. Heart: The cardiac silhouette is minimally more prominent from the previous examination. Mediastinum: The mediastinal contours are stable and unremarkable. The trachea is midline. Bones/joints: Unremarkable. No acute fracture. IMPRESSION: The cardiac silhouette is minimally more prominent from the previous examination. Otherwise no appreciable alteration from the prior examination.
[2024-04-25] MEDS: IPRATROPIUM-ALBUTEROL 3 ML NEB INHALATION SCH (07:18)
[2024-04-25] MEDS: OSELTAMIVIR 75 MG CAP PO SCH (08:20)
[2024-04-25] MEDS: methylPREDNISolone SOD SUCCI 125 MG/2 ML VIAL IV SCH (08:21)
--- NOTE | 2024-04-25 09:52 | P.HPIM ---
History of Present Illness H&P Date: 04/25/24 History of Presenting Illness: Patient is a pleasant 44-year-old female with a past medical history of hypertension, hyperlipidemia, nicotine dependence smoking 1 pack of cigarettes daily, daily alcohol abuse drinking approximately 12 beers daily, and concerns of underlying COPD. She presented to the emergency department this morning for reports of shortness of breath and cough. Patient reports she has been sick off and on for the last 10 days and over the past 2 days has significantly worsened and now accompanied by a fever, diaphoresis, chills, and generalized bodyaches. She denies having any dizziness, lightheadedness, chest pain, palpitations, nausea, vomiting, or experiencing any numbness/tingling/weakness/swelling in her extremities. Upon arrival to our facility, patient underwent evaluation in the emergency department. Vital signs upon arrival show blood pressure 164/114, heart rate 107, respiratory rate 18, temp 102.2 F, and SpO2 of 87% on room air. EKG completed showing sinus mechanism at 99 bpm with a left bundle branch block (left bundle branch block is previously known). Chest x-ray completed showing slightly prominent cardiac silhouette otherwise negative for acute cardiopulmonary process. Labs completed and reviewed. CBC showing thrombocytopenia with platelet count of 103. BMP showing hyponatremia with sodium of 129, hypokalemia with potassium of 9.3, and hypochloremia with chloride of 91. Blood glucose 106. Magnesium was low 1.4. Liver enzymes elevated with AST of 427 and ALT of 168. Influenza A positive. Patient admitted under our services with consultation to pulmonology. Review of systems: Pertinent positives and negatives as discussed in HPI, a complete review of systems was performed and all other systems are negative. Physical exam: Vital signs reviewed and stable. General: Nontoxic, no distress and appears stated age. Derm: Skin warm and dry, normal coloration for ethnicity. Head: Atraumatic, normocephalic and symmetric. Eyes: EOM's intact, no lid lag, and anicteric sclera Mouth: no lip lesions, mucus membranes moist Cardiovascular: regular rate and rhythm with normal S1S2, no murmur, positive posterior tibial pulses bilaterally, and cap refill < 2 seconds. Lungs: Respirations even, regular, and unlabored on supplemental oxygen. Lungs diminished with diffuse expiratory wheezes bilaterally. No rhonchi, rales, or crackles noted. No accessory muscle usage. Abdominal: soft, nontender to palpation, no guarding, no appreciable organomegaly Ext: ROM intact. No gross muscle atrophy, no edema, no contractures Neuro: Speech clear, face symmetrical and CN II-XII grossly intact with no noted focal neuro deficits Psych: Alert and oriented to person, place, time, and situation. Appropriate and pleasant affect. Assessment and Plan of Care: Acute respiratory failure with hypoxia Influenza A Suspect COPD exacerbation -Consult to Pulmonology, appreciate recommendations -Oxygenation to be administered and titrated as needed to maintain SPO2 equal to or greater than 92% currently on 4 L O2 via nasal cannula with SpO2 of 91% -Telemetry monitoring. -Monitor pulse-oximetry -Duonebs scheduled 4 times daily and as needed for SOB and/or wheezing -Incentive Spirometry -Steroids: Solu-Medrol 60 mg IVP every 6 hours. -Tamiflu 75 mg every 12 hours x 5 days. Electrolyte imbalances with Hyponatremia, Hypomagnesemia, and Hypokalemia -Sodium 129, chloride 91, potassium 3.3, and magnesium of 1.4. -Continue 0.9% normal saline at 75 cc/h with continued close monitoring of sodium and chloride levels with repeat morning BMP. -Order placed for K-Dur 40 mill equivalents p.o. x 1 dose. Monitor for resolution of hypokalemia with repeat morning BMP. -Order placed for magnesium sulfate 3 g IVPB x 1 dose. Monitor for resolution of hypomagnesemia with repeat morning magnesium level. Alcohol abuse Transaminitis, secondary to daily alcohol abuse. Thrombocytopenia, secondary to daily alcohol abuse -Order placed for monitoring of CIWA scores and patient to be medicated with Ativan 0.5 mg every 4 hours as needed for CIWA score of 4-5, Ativan 1 mg every 4 hours for CIWA score of 6-7, Ativan 2 mg every 3 hours CIWA score of 8-9, and Ativan 2 mg every 2 hours forr CIWA score of 10 or greater. -Continuous IV hydration. -Thiamine 100 mg daily, and Multivitamin daily, and Folate 1 mg daily -Seizure, fall, aspiration, and elopement precautions in place. -Continued close monitoring of electrolytes and replace as needed. -Telemetry monitoring. Data and Imaging reviewed: As stated above in HPI. CODE STATUS: Full code DVT prophylaxis: Heparin Anticipated discharge date: Pending clinical course Anticipated discharge place: Home Patient was seen independently by Nurse Practitioner. This document was prepared using [employer] dictation software. Please allow for errors in acid maker while rare they do occur. Moshe Ortiz NP rendered care for this patient independently, reviewed the findings and plan as documented in the note above and agree with plan. I did not physically speak with or examine the patient on this date. 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[employer], trigger finger and cyst removed Past Anesthesia/Blood Transfusion Reactions: No Reported Reaction Past Psychological History: No Psychological Hx Reported Smoking Status: Current every day smoker Past Alcohol Use History: Daily, Occasional Past Drug Use History: None Reported - Past Family History Father Family Medical History: Cancer Additional Family Medical History / Comment(s): LEUKEMIA Medications and Allergies Home Medications Medication Instructions Recorded Confirmed Type Albuterol Inhaler [Ventolin Hfa 2 puff INHALATION RT-Q4H PRN 05/12/23 04/25/24 History Inhaler] Rosuvastatin [Crestor] 20 mg PO DAILY 05/12/23 04/25/24 History Spironolactone [Aldactone] 50 mg PO DAILY 05/12/23 04/25/24 History carvediloL [Coreg*] 12.5 mg PO BID 05/12/23 04/25/24 History Doxycycline Hyclate 100 mg PO BID 04/25/24 04/25/24 History Ipratropium-Albuterol Nebulize 3 ml INHALATION RT-QID 04/25/24 04/25/24 History [Duoneb 0.5 mg-3 mg/3 ml Soln] Losartan Potassium [Cozaar] 100 mg PO DAILY 04/25/24 04/25/24 History amLODIPine [Norvasc] 5 mg PO DAILY 04/25/24 04/25/24 History Allergies Allergy/AdvReac Type Severity Reaction Status Date / Time lisinopril Allergy Anaphylaxis Verified 04/25/24 08:11 Physical Exam Vitals: Vital Signs Temp Pulse Resp BP Pulse Ox 04/25/24 08:28 82 18 124/75 91 L 04/25/24 07:33 80 04/25/24 07:21 77 92 L 04/25/24 06:00 98.5 F 78 15 92 L 04/25/24 03:54 99.1 F 80 17 128/84 93 L 04/25/24 03:04 98.9 F 87 19 138/88 93 L 04/25/24 02:51 99.5 F 90 16 93 L 04/25/24 02:41 100.0 F H 04/25/24 02:07 96 18 144/85 90 L 04/25/24 01:52 93 04/25/24 01:34 94 04/25/24 00:59 91 L 04/25/24 00:54 102.2 F H 107 H 18 164/114 87 L Intake and Output 04/24/24 04/25/24 04/25/24 22:59 06:59 14:59 Other: Weight 97.522 kg Results CBC & Chem 7: 04/25/24 01:32 04/25/24 02:23 Labs: Abnormal Lab Results - Last 24 Hours (Table) 04/25/24 04/25/24 04/25/24 Range/Units 01:32 01:32 02:23 Hct 47.5 H (34.0-46.0) % Plt Count 103 L (150-450) k/uL Lymphocytes # 0.5 L (1.0-4.8) k/uL Sodium 129 L (137-145) mmol/L Potassium 3.3 L (3.5-5.1) mmol/L Chloride 91 L (98-107) mmol/L Creatinine 0.50 L (0.52-1.04) mg/dL Glucose 106 H (74-99) mg/dL Magnesium 1.4 L (1.6-2.3) mg/dL AST 427 H (14-36) U/L ALT 168 H (4-34) U/L Influenza Type A (PCR) Detected A (Not Detectd)
[2024-04-25] MEDS: NICOTINE 21MG/24HR PATCH TRANSDERM SCH (10:16)
[2024-04-25] MEDS: LOSARTAN 50 MG TAB PO SCH (10:18)
[2024-04-25] MEDS: MAGNESIUM SULFATE-D5W PMX 1 GM in DEXTROSE/WATER 1 100ML.BAG IVPB SCH (10:20)
[2024-04-25] MEDS: ATORVASTATIN 40 MG TAB PO SCH (10:20)
[2024-04-25] MEDS: carvediloL 12.5 MG TAB PO SCH (10:20)
[2024-04-25] MEDS: POTASSIUM CHLORIDE ER 20 MEQ TAB.ER PO STA (10:20)
[2024-04-25] MEDS: amLODIPine 5 MG TAB PO SCH ×2 (10:37→20:20)
[2024-04-25] MEDS ORDERED: LORazepam 2 MG/ML INJ IV PRN ×3 (16:50)
[2024-04-25] MEDS ORDERED: LORazepam 0.5 MG TAB PO PRN (16:50)
[2024-04-25] MEDS ORDERED: LORazepam 1 MG TAB PO PRN (16:50)
--- NOTE | 2024-04-25 18:09 | P.CNPUL ---
History of Present Illness Consult date: 04/25/24 Reason for consult: dyspnea History of present illness: This is a morbidly obese 44-year-old female patient, a chronic smoker with COPD, presented to the hospital because of worsening shortness of breath, cough, congestion, increased wheezing, chest tightness and fever and diaphoresis and chills and bodyaches. The patient symptoms got worse over the past 48 hours. She arrived to the emergency department with a temperature of 102.2. Pulse ox was 87% on room air oxygen and the patient was placed on 4 L of oxygen by nasal cannula. Chest x-ray shows no acute pulmonary filtrates. Tested positive for influenza A. Did not receive vaccination for this current season. She drinks alcohol in excess approximately 12 beers on a daily basis. She has a white cell count of 4, sodium level of 129, BUN of 12 with a creatinine of 0.5, potassium of 3.3, alcoholic liver disease with elevated AST and ALT. No nausea vomiting or diarrhea or abdominal pain. Lactic acid level is at 0.2. Started on Tamiflu and bronchodilators and steroids. No altered mentation. No other new complaints. Review of Systems Constitutional: Reports fatigue, Reports fever, Reports lethargy, Reports weakness, Reports weight gain Eyes: denies as per HPI, denies blurred vision, denies bulging eye, denies decreased vision, denies diplopia, denies discharge, denies dry eye, denies irritation, denies itching, denies pain, denies photophobia, denies loss of peripheral vision, denies loss of vision, denies tunnel vision/blind spots Ears: deny: decreased hearing, ear discharge, earache, tinnitus Ears, nose, mouth and throat: Reports as per HPI Breasts: absent: as per HPI, change in shape, gynecomastia, masses, nipple disc harge, pain, skin changes, swelling Cardiovascular: Reports decreased exercise tolerance, Reports dyspnea on exertion Respiratory: Reports congestion, Reports cough, Reports dyspnea, Reports snoring, Reports wheezing Gastrointestinal: Reports as per HPI Genitourinary: Reports as per HPI Menstruation: Reports as per HPI Musculoskeletal: Reports as per HPI Musculoskeletal: absent: ankle pain, ankle stiffness, ankle swelling, as per HPI, elbow pain, elbow stiffness, elbow swelling, foot pain, foot stiffness, foot swelling, hand pain, hand stiffness, hand swelling, hip pain, hip stiffness, hip swelling, knee pain, knee stiffness, knee swelling, shoulder pain, shoulder stiffness, shoulder swelling, wrist pain, wrist stiffness, wrist swelling Integumentary: Reports as per HPI Neurological: Reports as per HPI Psychiatric: Reports as per HPI Endocrine: Reports as per HPI, Reports fatigue Hematologic/Lymphatic: Reports as per HPI Allergic/Immunologic: Reports as per HPI 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[employer], trigger finger and cyst removed Past Anesthesia/Blood Transfusion Reactions: No Reported Reaction Past Psychological History: No Psychological Hx Reported Smoking Status: Current every day smoker Past Alcohol Use History: Daily, Occasional Past Drug Use History: None Reported - Past Family History Father Family Medical History: Cancer Additional Family Medical History / Comment(s): LEUKEMIA Medications and Allergies Home Medications Medication Instructions Recorded Confirmed Type Albuterol Inhaler [Ventolin Hfa 2 puff INHALATION RT-Q4H PRN 05/12/23 04/25/24 History Inhaler] Rosuvastatin [Crestor] 20 mg PO DAILY 05/12/23 04/25/24 History Spironolactone [Aldactone] 50 mg PO DAILY 05/12/23 04/25/24 History carvediloL [Coreg*] 12.5 mg PO BID 05/12/23 04/25/24 History Doxycycline Hyclate 100 mg PO BID 04/25/24 04/25/24 History Ipratropium-Albuterol Nebulize 3 ml INHALATION RT-QID 04/25/24 04/25/24 History [Duoneb 0.5 mg-3 mg/3 ml Soln] Losartan Potassium [Cozaar] 100 mg PO DAILY 04/25/24 04/25/24 History amLODIPine [Norvasc] 5 mg PO DAILY 04/25/24 04/25/24 History Allergies Allergy/AdvReac Type Severity Reaction Status Date / Time lisinopril Allergy Anaphylaxis Verified 04/25/24 08:11 Physical Exam Vitals: Vital Signs Temp Pulse Pulse Resp BP BP Pulse Ox 04/25/24 17:04 97.7 F 76 18 119/74 93 L 04/25/24 15:04 81 04/25/24 14:57 78 04/25/24 14:00 78 18 121/73 90 L 04/25/24 12:00 80 16 137/76 92 L 04/25/24 11:20 80 04/25/24 11:10 78 04/25/24 10:25 87 20 125/86 93 L 04/25/24 08:28 82 18 124/75 91 L 04/25/24 07:33 80 04/25/24 07:21 77 92 L 04/25/24 06:00 98.5 F 78 15 92 L 04/25/24 03:54 99.1 F 80 17 128/84 93 L 04/25/24 03:04 98.9 F 87 19 138/88 93 L 04/25/24 02:51 99.5 F 90 16 93 L 04/25/24 02:41 100.0 F H 04/25/24 02:07 96 18 144/85 90 L 04/25/24 01:52 93 04/25/24 01:34 94 04/25/24 00:59 91 L 04/25/24 00:54 102.2 F H 107 H 18 164/114 87 L Intake and Output 04/25/24 04/25/24 04/25/24 06:59 14:59 22:59 Other: Weight 97.522 kg 97.522 kg The patient appeared well nourished and normally developed. Vital signs as documented. Obese, comfortable with a BMI of 35.8. Currently on 40 Suboxone by nasal cannula Head exam is unremarkable. No scleral icterus or corneal arcus noted. Neck is without jugular venous distension, thyromegaly, or carotid bruits. Carotid upstrokes are brisk bilaterally. Lungs show diminished breath sounds along with diffuse expiratory wheezes throughout the lung field bilaterally Cardiac exam reveals the PMI to be normally sized and situated. Rhythm is regular. First and second heart sounds normal. No murmurs, rubs or gallops. Abdominal exam reveals normal bowel sounds, no masses, no organomegaly and no aortic enlargement. Extremities are nonedematous and both femoral and pedal pulses are normal. Examination of the skin revealed no evidence of significant rashes, suspicious appearing nevi or other concerning lesions. Neurologically, the patient is awake and alert and the patient does not have any focal neurological deficit. Cranial nerves are essentially intact. Results - Laboratory Findings CBC and BMP: 04/25/24 01:32 04/25/24 02:23 PT/INR, D-dimer PT 11.5 sec (10.0-12.5) 04/25/24 01:32 INR 1.0 (<1.2) 04/25/24 01:32 Abnormal lab findings: Abnormal Labs 04/25/24 04/25/24 04/25/24 01:32 01:32 02:23 Hct 47.5 H Plt Count 103 L Lymphocytes # 0.5 L Sodium 129 L Potassium 3.3 L Chloride 91 L Creatinine 0.50 L Glucose 106 H Magnesium 1.4 L AST 427 H ALT 168 H Influenza Type A (PCR) Detected A - Diagnostic Findings Chest x-ray: image reviewed Assessment and Plan Plan: Acute exacerbation of COPD Acute hypoxic respiratory failure currently on 5 L of oxygen by nasal cannula Acute influenza A infection, unvaccinated Alcoholism Alcoholic liver disease Thrombocytopenia, alcohol induced Obesity with a BMI of 35.8 Hyponatremia, likely secondary to excessive beer drinking Migraines History of cardiomyopathy with a previous echocardiogram from April 2023 revealing impaired LV function with an ejection fraction of 45 to 50%, likely alcohol induced Hypertension Hyperlipidemia Plan Normal saline at rate of 75 cc an hour Monitor electrolytes Titrate oxygen flow to maintain saturation above 90%, [facility] 5 [facility] Tamiflu for acute influenza infection/syndrome Resume home medications Smoking cessation counseling Watch for any signs of delirium tremens Will continue to follow
[2024-04-25] MEDS: HEPARIN SODIUM,PORCINE 5,000 UNIT/ML 1 ML VIAL SQ SCH (22:30)
[2024-04-25] MEDS: guaiFENesin-Coden 100-10MG/5ML 10 ML CUP PO PRN (22:30)
[2024-04-26] MEDS: IPRATROPIUM-ALBUTEROL 3 ML NEB INHALATION PRN (05:28)
[2024-04-26 06:20] LABS: HCT 48.9 % (34.0-46.0); HGB 15.4 gm/dL (11.4-16.0); MCH 32.6 pg (25.0-35.0); MCHC 31.6 g/dL (31.0-37.0); Macrocytosis Slight; Mean Platelet Volume 7.6; Platelet Count 149 k/uL (150-450); RBC 4.74 m/uL (3.80-5.40); RDW 14.4 % (11.5-15.5); WBC 8.1 k/uL (3.8-10.6)
[2024-04-26 06:24] LABS: MCV 103.1 fL (80.0-100.0)
[2024-04-26 06:30] LABS: ALT 118 U/L (4-34); AST 140 U/L (14-36); African American GFR (CKD) >90 (>60 ml/min/1.73 sqM); Albumin 3.2 g/dL (3.5-5.0); Alkaline Phosphatase 79 U/L (38-126); Anion Gap 6 mmol/L; Blood Urea Nitrogen 12 mg/dL (7-17); Carbon Dioxide 24 mmol/L (22-30); Chloride 103 mmol/L (98-107); Glucose 158 mg/dL (74-99); Magnesium 2.3 mg/dL (1.6-2.3); Non-African American GFR(CKD) >90 (>60 ml/min/1.73 sqM); Potassium 4.6 mmol/L (3.5-5.1); Sodium 133 mmol/L (137-145); Total Bilirubin 0.5 mg/dL (0.2-1.3); Total Protein 6.1 g/dL (6.3-8.2)
[2024-04-26] MEDS: FOLIC ACID 1 MG TAB PO SCH (11:46)
[2024-04-26] MEDS: MULTIVITAMINS, THERA 1 EACH TAB PO SCH (11:46)
[2024-04-26] MEDS: THIAMINE 100 MG TAB PO SCH (11:46)
[2024-04-26] MEDS: guaiFENesin-DM 100-10MG/5ML 10 ML CUP PO PRN (12:55)
--- NOTE | 2024-04-26 13:11 | P.PN ---
Subjective Progress Note Date: 04/26/24 Hospital Course: Patient is a pleasant 44-year-old female with a past medical history of hypertension, hyperlipidemia, nicotine dependence smoking 1 pack of cigarettes daily, daily alcohol abuse drinking approximately 12 beers daily, and concerns of underlying COPD. She presented to the emergency department this morning for reports of shortness of breath and cough. Patient reports she has been sick off and on for the last 10 days and over the past 2 days has significantly worsened and now accompanied by a fever, diaphoresis, chills, and generalized bodyaches. She denies having any dizziness, lightheadedness, chest pain, palpitations, nausea, vomiting, or experiencing any numbness/tingling/weakness/swelling in her extremities. Upon arrival to our facility, patient underwent evaluation in the emergency department. Vital signs upon arrival show blood pressure 164/114, heart rate 107, respiratory rate 18, temp 102.2 F, and SpO2 of 87% on room air. EKG completed showing sinus mechanism at 99 bpm with a left bundle branch block (left bundle branch block is previously known). Chest x-ray completed showing slightly prominent cardiac silhouette otherwise negative for acute cardiopulmonary process. Labs completed and reviewed. CBC showing thro mbocytopenia with platelet count of 103. BMP showing hyponatremia with sodium of 129, hypokalemia with potassium of 9.3, and hypochloremia with chloride of 91. Blood glucose 106. Magnesium was low 1.4. Liver enzymes elevated with AST of 427 and ALT of 168. Influenza A positive. Patient admitted under our services with consultation to pulmonology. Physical exam: Patient seen and fully evaluated at bedside this morning. Patient reports continued shortness of breath and wheezing with productive cough of thin clear to white sputum production. She denies any chest pain, nausea, vomiting, or experiencing any signs/symptoms of alcohol withdrawal. Vital signs reviewed and stable. General: Nontoxic, no distress and appears stated age. Derm: Skin warm and dry, normal coloration for ethnicity. Head: Atraumatic, normocephalic and symmetric. Eyes: EOM's intact, no lid lag, and anicteric sclera Mouth: no lip lesions, mucus membranes moist Cardiovascular: regular rate and rhythm with normal S1S2, no murmur, positive posterior tibial pulses bilaterally, and cap refill < 2 seconds. Lungs: Respirations even, regular, and unlabored on supplemental oxygen 5 L. Lungs diminished with diffuse expiratory wheezes bilaterally. No rhonchi, rales, or crackles noted. No accessory muscle usage. Abdominal: soft, nontender to palpation, no guarding, no appreciable organomegaly Ext: ROM intact. No gross muscle atrophy, no edema, no contractures Neuro: Speech clear, face symmetrical and CN II-XII grossly intact with no noted focal neuro deficits Psych: Alert and oriented to person, place, time, and situation. Appropriate and pleasant affect. Assessment and Plan of Care: Acute respiratory failure with hypoxia Influenza A Suspect COPD exacerbation -Pulmonology following -Oxygenation to be administered and titrated as needed to maintain SPO2 equal to or greater than 92% currently on 4 L O2 via nasal cannula with SpO2 of 91% -Telemetry monitoring. -Monitor pulse-oximetry -Duonebs scheduled 4 times daily and as needed for SOB and/or wheezing -Incentive Spirometry -Steroids: Solu-Medrol 60 mg IVP every 6 hours. -Tamiflu 75 mg every 12 hours x 5 days currently day 05/04. Electrolyte imbalances with Hyponatremia, Hypomagnesemia, and Hypokalemia -Improving. Sodium 133, chloride 103, potassium 4.6, and magnesium 2.3 this morning. -Continue 0.9% normal saline at 75 cc/h with continued close monitoring of sodium and chloride levels with repeat morning BMP. Alcohol abuse Transaminitis, secondary to daily alcohol abuse. Thrombocytopenia, secondary to daily alcohol abuse -Continue monitoring of CIWA scores and patient to be medicated with Ativan 0.5 mg every 4 hours as needed for CIWA score of 4-5, Ativan 1 mg every 4 hours for CIWA score of 6-7, Ativan 2 mg every 3 hours CIWA score of 8-9, and Ativan 2 mg every 2 hours forr CIWA score of 10 or greater. -Continuous IV hydration 0.9% normal saline at 75 cc/h. -Thiamine 100 mg daily, and Multivitamin daily, and Folate 1 mg daily -Seizure, fall, aspiration, and elopement precautions in place. -Continued close monitoring of electrolytes and replace as needed. -Telemetry monitoring. Data and Imaging reviewed: Labs completed and reviewed. CBC showing macrocytosis with MCV of 103.1 and thrombocytopenia with platelet count of 149. BMP showing hyponatremia with sodium of 133. Blood glucose 158. Magnesium 2.3. Liver profile showing improvement of AST down to 148 and ALT of 118. Vital signs reviewed. Blood pressure 124/76, heart rate 65, respiratory rate 17, temp 97.6 F, and SpO2 of 94% on 5 L. CODE STATUS: Full code DVT prophylaxis: Heparin Anticipated discharge date: Pending clinical course Anticipated discharge place: Home Patient was seen independently by Nurse Practitioner. This document was prepared using [employer] dictation software. Please allow for errors in deckhand clam dredge while rare they do occur. Moshe Ortiz NP rendered care for this patient independently, reviewed the findings and plan as documented in the note above and agree with plan. I did not physically speak with or examine the patient on this date. Objective - Vital Signs Vital signs: Vital Signs Temp 98.5 F 04/25/24 20:00 Pulse 84 04/26/24 07:40 Resp 12 04/26/24 02:34 BP 132/74 04/26/24 02:34 Pulse Ox 96 04/26/24 07:32 FiO2 Intake & Output 04/25/24 04/26/24 04/26/24 18:59 06:59 18:59 Weight 97.522 kg - Labs CBC & Chem 7: 04/26/24 06:10 04/26/24 06:10 Labs: Abnormal Lab Results - Last 24 Hours (Table) 04/26/24 04/26/24 Range/Units 06:10 06:10 Hct 48.9 H (34.0-46.0) % MCV 103.1 H D (80.0-100.0) fL Plt Count 149 L (150-450) k/uL Sodium 133 L (137-145) mmol/L Creatinine 0.43 L (0.52-1.04) mg/dL Glucose 158 H (74-99) mg/dL Calcium 8.0 L (8.4-10.2) mg/dL AST 140 H (14-36) U/L ALT 118 H (4-34) U/L Total Protein 6.1 L (6.3-8.2) g/dL Albumin 3.2 L (3.5-5.0) g/dL
--- NOTE | 2024-04-26 13:27 | P.PN ---
Subjective Progress Note Date: 04/26/24 This is a morbidly obese 44-year-old female patient, a chronic smoker with COPD, presented to the hospital because of worsening shortness of breath, cough, congestion, increased wheezing, chest tightness and fever and diaphoresis and chills and bodyaches. The patient symptoms got worse over the past 48 hours. She arrived to the emergency department with a temperature of 102.2. Pulse ox was 87% on room air oxygen and the patient was placed on 4 L of oxygen by nasal cannula. Chest x-ray shows no acute pulmonary filtrates. Tested positive for influenza A. Did not receive vaccination for this current season. She drinks alcohol in excess approximately 12 beers on a daily basis. She has a white cell count of 4, sodium level of 129, BUN of 12 with a creatinine of 0.5, potassium of 3.3, alcoholic liver disease with elevated AST and ALT. No nausea vomiting or diarrhea or abdominal pain. Lactic acid level is at 0.2. Started on Tamiflu and bronchodilators and steroids. No altered mentation. No other new complaints. 04/26/2024, the patient is being seen for a follow-up. Still complaining of cough and congestion and wheezing. Limited improvement since yesterday. Remains on bronchodilators. Remains on steroids. Remains on oxygen and the patient remains on 4 L/min nasal cannula. Follow-up labs from today shows a white cell count of 8.1 with a heme of 15.4 and a platelet count of 149. BUN is 12 with a creatinine of 0.4 and a sodium levels at 133. Noted the patient had an acute influenza A LTAC admission and the patient remains on Tamiflu. Currently afebrile. No nausea vomiting or diarrhea. No other new complaints otherwise for now. Objective - Vital Signs Vital signs: Vital Signs Temp 98.5 F 04/25/24 20:00 Pulse 84 04/26/24 07:40 Resp 12 04/26/24 02:34 BP 132/74 04/26/24 02:34 Pulse Ox 96 04/26/24 07:32 FiO2 Intake & Output 04/25/24 04/26/24 04/26/24 18:59 06:59 18:59 Weight 97.522 kg - Exam The patient appeared well nourished and normally developed. Vital signs as documented. Obese, comfortable with a BMI of 35.8. Currently on 40 Suboxone by nasal cannula Head exam is unremarkable. No scleral icterus or corneal arcus noted. Neck is without jugular venous distension, thyromegaly, or carotid bruits. Carotid upstrokes are brisk bilaterally. Lungs show diminished breath sounds along with diffuse expiratory wheezes throughout the lung field bilaterally Cardiac exam reveals the PMI to be normally sized and situated. Rhythm is regular. First and second heart sounds normal. No murmurs, rubs or gallops. Abdominal exam reveals normal bowel sounds, no masses, no organomegaly and no aortic enlargement. Extremities are nonedematous and both femoral and pedal pulses are normal. Examination of the skin revealed no evidence of significant rashes, suspicious appearing nevi or other concerning lesions. Neurologically, the patient is awake and alert and the patient does not have any focal neurological deficit. Cranial nerves are essentially intact. - Labs CBC & Chem 7: 04/26/24 06:10 04/26/24 06:10 Labs: Abnormal Lab Results - Last 24 Hours (Table) 04/26/24 04/26/24 Range/Units 06:10 06:10 Hct 48.9 H (34.0-46.0) % MCV 103.1 H D (80.0-100.0) fL Plt Count 149 L (150-450) k/uL Sodium 133 L (137-145) mmol/L Creatinine 0.43 L (0.52-1.04) mg/dL Glucose 158 H (74-99) mg/dL Calcium 8.0 L (8.4-10.2) mg/dL AST 140 H (14-36) U/L ALT 118 H (4-34) U/L Total Protein 6.1 L (6.3-8.2) g/dL Albumin 3.2 L (3.5-5.0) g/dL Assessment and Plan Plan: Acute exacerbation of COPD Acute hypoxic respiratory failure currently on 4 L of oxygen by nasal cannula Acute influenza A infection, unvaccinated Alcoholism Alcoholic liver disease Thrombocytopenia, alcohol induced Obesity with a BMI of 35.8 Hyponatremia, likely secondary to excessive beer drinking Migraines History of cardiomyopathy with a previous echocardiogram from April 2023 revealing impaired LV function with an ejection fraction of 45 to 50%, likely alcohol induced Hypertension Hyperlipidemia Plan Patient continues to be symptomatic bronchospastic and wheezy Normal saline at rate of 75 cc an hour Monitor electrolytes Titrate oxygen flow to maintain saturation above 90%, currently on 4 L of oxygen by nasal cannula Continue [facility] IV Solu-Medrol to be continued at the same dose Tamiflu for acute influenza infection/syndrome Resume home medications Smoking cessation counseling Watch for any signs of delirium tremens Will continue to follow
[2024-04-26] MEDS: methylPREDNISolone SOD SUCCI 125 MG/2 ML VIAL IV SCH (18:36)
[2024-04-26] MEDS: amLODIPine 5 MG TAB PO SCH (21:40)
[2024-04-27 07:57] LABS: HCT 47.4 % (34.0-46.0); Hypochromasia Slight; MCH 32.8 pg (25.0-35.0); MCHC 31.6 g/dL (31.0-37.0); MCV 103.7 fL (80.0-100.0); Macrocytosis Slight; Mean Platelet Volume 8.2; Platelet Count 162 k/uL (150-450); RBC 4.57 m/uL (3.80-5.40); RDW 14.5 % (11.5-15.5); WBC 11.3 k/uL (3.8-10.6)
[2024-04-27 08:12] LABS: ALT 96 U/L (4-34); AST 81 U/L (14-36); African American GFR (CKD) >90 (>60 ml/min/1.73 sqM); Albumin 3.3 g/dL (3.5-5.0); Alkaline Phosphatase 89 U/L (38-126); Anion Gap 3 mmol/L; Blood Urea Nitrogen 13 mg/dL (7-17); Calcium 8.4 mg/dL (8.4-10.2); Carbon Dioxide 29 mmol/L (22-30); Chloride 99 mmol/L (98-107); Glucose 232 mg/dL (74-99); Magnesium 1.9 mg/dL (1.6-2.3); Non-African American GFR(CKD) >90 (>60 ml/min/1.73 sqM); Potassium 4.4 mmol/L (3.5-5.1); Sodium 131 mmol/L (137-145); Total Bilirubin 0.4 mg/dL (0.2-1.3); Total Protein 6.2 g/dL (6.3-8.2)
--- NOTE | 2024-04-27 13:48 | P.PN ---
Subjective Progress Note Date: 04/27/24 This is a morbidly obese 44-year-old female patient, a chronic smoker with COPD, presented to the hospital because of worsening shortness of breath, cough, congestion, increased wheezing, chest tightness and fever and diaphoresis and chills and bodyaches. The patient symptoms got worse over the past 48 hours. She arrived to the emergency department with a temperature of 102.2. Pulse ox was 87% on room air oxygen and the patient was placed on 4 L of oxygen by nasal cannula. Chest x-ray shows no acute pulmonary filtrates. Tested positive for influenza A. Did not receive vaccination for this current season. She drinks alcohol in excess approximately 12 beers on a daily basis. She has a white cell count of 4, sodium level of 129, BUN of 12 with a creatinine of 0.5, potassium of 3.3, alcoholic liver disease with elevated AST and ALT. No nausea vomiting or diarrhea or abdominal pain. Lactic acid level is at 0.2. Started on Tamiflu and bronchodilators and steroids. No altered mentation. No other new complaints. 04/26/2024, the patient is being seen for a follow-up. Still complaining of cough and congestion and wheezing. Limited improvement since yesterday. Remains on bronchodilators. Remains on steroids. Remains on oxygen and the patient remains on 4 L/min nasal cannula. Follow-up labs from today shows a white cell count of 8.1 with a heme of 15.4 and a platelet count of 149. BUN is 12 with a creatinine of 0.4 and a sodium levels at 133. Noted the patient had an acute influenza A LTAC admission and the patient remains on Tamiflu. Currently afebrile. No nausea vomiting or diarrhea. No other new complaints otherwise for now. 04/27/2024, the patient is being seen for a follow-up. Feeling much better. Currently has been weaned down to 2 L of O2 nasal cannula. Will do a home O2 evaluation. Overall, feeling better. Less bronchospastic. BUN/creatinine of a dmission. Currently comfortable. White cell count 11 with a hemoglobin 15 and a platelet count of 162. Electrolytes are all within normal limits. Remains on Tamiflu and IV Solu-Medrol. Objective - Vital Signs Vital signs: Vital Signs Temp 96.5 F L 04/27/24 07:55 Pulse 68 04/27/24 08:37 Resp 20 04/27/24 08:37 BP 143/83 04/27/24 07:55 Pulse Ox 93 L 04/27/24 07:55 FiO2 Intake & Output 04/26/24 04/27/24 04/27/24 18:59 06:59 18:59 Intake Total 750 Balance 750 Intake: Intake, IV Titration 750 Amount Sodium Chloride 0.9% 1, 750 000 ml @ 75 mls/hr IV . [id number] [facility] Rx#:[id number] Other: Voiding Method Toilet Toilet # Voids 2 3 - Exam The patient appeared well nourished and normally developed. Vital signs as documented. Obese, comfortable with a BMI of 35.8. Currently on 2 L oxygen by nasal cannula Head exam is unremarkable. No scleral icterus or corneal arcus noted. Neck is without jugular venous distension, thyromegaly, or carotid bruits. Carotid upstrokes are brisk bilaterally. Lungs show diminished breath sounds along with diffuse expiratory wheezes throughout the lung field bilaterally Cardiac exam reveals the PMI to be normally sized and situated. Rhythm is regular. First and second heart sounds normal. No murmurs, rubs or gallops. Abdominal exam reveals normal bowel sounds, no masses, no organomegaly and no aortic enlargement. Extremities are nonedematous and both femoral and pedal pulses are normal. Examination of the skin revealed no evidence of significant rashes, suspicious appearing nevi or other concerning lesions. Neurologically, the patient is awake and alert and the patient does not have any focal neurological deficit. Cranial nerves are essentially intact. - Labs CBC & Chem 7: 04/27/24 07:19 04/27/24 07:19 Labs: Abnormal Lab Results - Last 24 Hours (Table) 04/27/24 04/27/24 Range/Units 07:19 07:19 WBC 11.3 H (3.8-10.6) k/uL Hct 47.4 H (34.0-46.0) % MCV 103.7 H (80.0-100.0) fL Sodium 131 L (137-145) mmol/L Creatinine 0.50 L (0.52-1.04) mg/dL Glucose 232 H (74-99) mg/dL AST 81 H (14-36) U/L ALT 96 H (4-34) U/L Total Protein 6.2 L (6.3-8.2) g/dL Albumin 3.3 L (3.5-5.0) g/dL Microbiology - Last 24 Hours (Table) 04/25/24 01:32 Blood Culture - Preliminary Blood Assessment and Plan Plan: Acute exacerbation of COPD, improving Acute hypoxic respiratory failure currently on 2 L O2 nasal cannula Acute influenza A infection, unvaccinated Alcoholism Alcoholic liver disease Thrombocytopenia, alcohol induced Obesity with a BMI of 35.8 Hyponatremia, likely secondary to excessive beer drinking Migraines History of cardiomyopathy with a previous echocardiogram from April 2023 revealing impaired LV function with an ejection fraction of 45 to 50%, likely alcohol induced Hypertension Hyperlipidemia Plan Patient continues to improve clinically and oxygenation has improved Home O2 evaluation Continue [facility] IV Solu-Medrol to be continued at the same dose and transition the patient to prednisone burst taper at time of discharge either today or within the next 24 hours Tamiflu for acute influenza infection/syndrome Smoking cessation counseling Watch for any signs of delirium tremens Will continue to follow
[2024-04-27 14:01] VITALS: BP 163/84; PULSE 59; TEMP 97
[2024-04-27 14:19] VITALS: RESP 16
--- NOTE | 2024-04-27 14:21 | P.DS ---
Providers Date of admission: 04/25/24 07:01 Expected date of discharge: 04/27/24 Attending physician: Shola Mathew MD Consults: 04/25/24 09:44 Consult Physician Routine Consulting Provider: Terri Butler Consult Reason/Comments: acute hypoxic resp failure 91% 4L, influenza A, suspect underlying COPD Do you want consulting provider notified?: Yes Primary care physician: Ben Serra Hospital Course: Discharge Diagnosis: Acute respiratory failure with hypoxia Influenza A COPD exacerbation Electrolyte imbalances with Hyponatremia, Hypomagnesemia, and Hypokalemia Alcohol abuse Transaminitis, secondary to daily alcohol abuse. Thrombocytopenia, secondary to daily alcohol abuse Hospital Course: Patient is a pleasant 44-year-old female with a past medical history of hypertension, hyperlipidemia, nicotine dependence smoking 1 pack of cigarettes daily, daily alcohol abuse drinking approximately 12 beers daily, and concerns of underlying COPD. She presented to the emergency department this morning for reports of shortness of breath and cough. Patient reports she has been sick off and on for the last 10 days and over the past 2 days has significantly worsened and now accompanied by a fever, diaphoresis, chills, and generalized bodyaches. She denies having any dizziness, lightheadedness, chest pain, palpitations, nausea, vomiting, or experiencing any numbness/tingling/weakness/swelling in her extremities. Upon arrival to our facility, patient underwent evaluation in the emergency department. Vital signs upon arrival show blood pressure 164/114, heart rate 107, respiratory rate 18, temp 102.2 F, and SpO2 of 87% on room air. EKG completed showing sinus mechanism at 99 bpm with a left bundle branch block (left bundle branch block is previously known). Chest x-ray completed showing slightly prominent cardiac silhouette otherwise negative for acute cardiopulmonary process. Labs completed and reviewed. CBC showing thrombocytopenia with platelet count of 103. BMP showing hyponatremia with sodium of 129, hypokalemia with potassium of 9.3, and hypochloremia with chloride of 91. Blood glucose 106. Magnesium was low 1.4. Liver enzymes elevated with AST of 427 and ALT of 168. Influenza A positive. Patient ad mitted under our services with consultation to pulmonology. Patient was treated with Tamiflu, supplemental oxygen, scheduled nebulizer treatments, and IV steroids. Patient's condition improved she was successfully weaned off of oxygen with ambulatory pulse ox of 93%. She is medically optimized for discharge. [employer] evaluated clearing patient from their perspective recommend following up outpatient in their office in 1 to 2 weeks. Patient stable for discharge. Prescription sent for remaining doses of Tamiflu and prednisone taper. Patient to follow-up outpatient with PCP in 1 to 2 days and with advertising manager in 1 to 2 weeks. Strongly advised cessation of any and all alcohol use and stopping smoking. Physical exam: Vital signs reviewed and stable. General: Nontoxic, no distress and appears stated age. Derm: Skin warm and dry, normal coloration for ethnicity. Head: Atraumatic, normocephalic and symmetric. Eyes: EOM's intact, no lid lag, and anicteric sclera Mouth: no lip lesions, mucus membranes moist Cardiovascular: regular rate and rhythm with normal S1S2, no murmur, positive posterior tibial pulses bilaterally, and cap refill < 2 seconds. Lungs: Respirations even, regular, and unlabored on room air. Lungs diminished. No wheezes, rhonchi, rales, or crackles noted. No accessory muscle usage. Abdominal: soft, nontender to palpation, no guarding, no appreciable organomegaly Ext: ROM intact. No gross muscle atrophy, no edema, no contractures Neuro: Speech clear, face symmetrical and CN II-XII grossly intact with no noted focal neuro deficits Psych: Alert and oriented to person, place, time, and situation. Appropriate and pleasant affect. A total of 33 minutes of time were spent preparing this complex discharge summary. Pt was discharged on 04/27/2024 at 2:15 PM. Patient was seen independently by Nurse Practitioner. This document was prepared using ebookpie dictation software. Please allow for errors in estimating engineer while rare they do occur. Moshe Ortiz NP rendered care for this patient independently, reviewed the findings and plan as documented in the note above. I did not physically speak with or examine the patient on this date. Patient Condition at Discharge: Stable Plan - Discharge Summary New Discharge Prescriptions: New Nicotine 21Mg/24Hr Patch [Habitrol] 1 patch TRANSDERM DAILY 30 Days #30 patch predniSONE See Taper PO DIRECTED 12 Days #30 tab Oseltamivir [Tamiflu] 75 mg PO Q12HR #5 cap Continue carvediloL [Coreg*] 12.5 mg PO BID Albuterol Inhaler [Ventolin Hfa Inhaler] 2 puff INHALATION RT-Q4H PRN PRN Reason: Shortness Of Breath amLODIPine [Norvasc] 5 mg PO DAILY Ipratropium-Albuterol Nebulize [Duoneb 0.5 mg-3 mg/3 ml Soln] 3 ml INHALATION RT-QID Spironolactone [Aldactone] 50 mg PO DAILY Rosuvastatin [Crestor] 20 mg PO DAILY Losartan Potassium [Cozaar] 100 mg PO DAILY Discontinued Doxycycline Hyclate 100 mg PO BID Discharge Medication List Albuterol Inhaler [Ventolin Hfa Inhaler] 2 puff INHALATION RT-Q4H PRN 05/12/23 [History] Rosuvastatin [Crestor] 20 mg PO DAILY 05/12/23 [History] Spironolactone [Aldactone] 50 mg PO DAILY 05/12/23 [History] carvediloL [Coreg*] 12.5 mg PO BID 05/12/23 [History] Ipratropium-Albuterol Nebulize [Duoneb 0.5 mg-3 mg/3 ml Soln] 3 ml INHALATION RT-QID 04/25/24 [History] Losartan Potassium [Cozaar] 100 mg PO DAILY 04/25/24 [History] amLODIPine [Norvasc] 5 mg PO DAILY 04/25/24 [History] Nicotine 21Mg/24Hr Patch [Habitrol] 1 patch TRANSDERM DAILY 30 Days #30 patch 04/27/24 [Rx] Oseltamivir [Tamiflu] 75 mg PO Q12HR #5 cap 04/27/24 [Rx] predniSONE See Taper PO DIRECTED 12 Days #30 tab 04/27/24 [Rx] Follow up Appointment(s)/Referral(s): Ben Serra MD [Primary Care Provider] - 1-2 days Terri Butler MD [STAFF PHYSICIAN] - 1 Week Patient Instructions/Handouts: How to Stop Smoking (DC), Influenza (DC), COPD (Chronic Obstructive Pulmonary Disease) (DC), At-Risk Alcohol Use (DC), Chronic Lung Disease and Infection Prevention (DC) Discharge Disposition: HOME SELF-CARE
== END 2024-04-27 14:41 | disposition home or self-care (01) | DRG 193 ==
LOC: EC 00:46 → 6NMEDSUR 03:11 → OBSVTOIN 07:01 → 6NMEDSUR 13:56 → 1SOBS 15:01
PROVIDERS: ADMIT Internal Medicine; ATTEND Internal Medicine
DX: J10.1 Influenza due to other identified influenza virus with other respiratory manifestations (principal); J96.01 Acute respiratory failure with hypoxia; E87.1 Hypo-osmolality and hyponatremia; J44.1 Chronic obstructive pulmonary disease with (acute) exacerbation; I42.9 Cardiomyopathy, unspecified; D69.59 Other secondary thrombocytopenia; E66.01 Morbid (severe) obesity due to excess calories; F10.20 Alcohol dependence, uncomplicated; I10 Essential (primary) hypertension; K70.9 Alcoholic liver disease, unspecified; I44.7 Left bundle-branch block, unspecified; G43.909 Migraine, unspecified, not intractable, without status migrainosus; E78.5 Hyperlipidemia, unspecified; E83.42 Hypomagnesemia; E87.6 Hypokalemia; E87.8 Other disorders of electrolyte and fluid balance, not elsewhere classified; F17.210 Nicotine dependence, cigarettes, uncomplicated; Z79.899 Other long term (current) drug therapy; Z20.822 Contact with and (suspected) exposure to COVID-19; Z68.35 Body mass index [BMI] 35.0-35.9, adult; Z88.8 Allergy status to other drugs, medicaments and biological substances
CPT/HCPCS: 36415; 71046; 80053; 83605; 83735; 85025; 85027; 85610; 85730; 87040; 87636; 93005; 94640; 94760; 96361; 96365; 96366; 96367; 96375; 99291

== ENCOUNTER → 2024-05-30 | Outpatient (CLI) | payer BC ==
--- NOTE | 2024-05-30 16:13 | US ---
EXAMINATION TYPE: US thyroid st tissue head/neck DATE OF EXAM: 05/30/2024 COMPARISON: NONE CLINICAL INDICATION: Female, 44 years old with history of E049 NONTOXIC GOITER; pt feels lump near th yroid TECHNIQUE: Grayscale and color Doppler imaging of the thyroid gland. FINDINGS: GLAND SIZE: Right Lobe: 4.6 x 1.8 x 1.4 cm Overall Parenchyma: homogeneous Left Lobe: 3.7 x 1.6 x 1.1 cm Overall Parenchyma: homogeneous Isthmus Thickness: 0.2 cm NODULES RIGHT: # of nodules measured on right: 0 LEFT: # of nodules measured on left: 0 ISTHMUS: # of nodules measured in the isthmus: 0 Bilateral neck scanned, no evidence of lymphadenopathy. IMPRESSION: Unremarkable nonenlarged thyroid without discrete nodule. [facility], , 05/30/2024 4:11 PM
--- NOTE | 2024-05-31 10:41 | MM ---
Reason for Exam: Screening (asymptomatic). Last mammogram was performed 10 year(s) and 9 month(s) ago. Patient History: Menarche at age 11. First Full-Term at age 17. Patient used Hormonal Contraceptives for 3 years. Maternal aunt had breast cancer, age 30. Last menstrual period: 05/19/2024 Risk Values: Shi 5 year model risk: 0.6%. NCI Lifetime model risk: 7.7%. Prior Study Comparison: 09/08/2013 Bilateral Diagnostic Mammogram, [facility]. Tissue Density: There are scattered areas of fibroglandular density. Findings: Analyzed By CAD. On the right, asymmetric density far posterior central 12:00 position is more defined. Further evaluation recommended. Asymmetric density lateral posterior right cc view incompletely disperses on 3-D images. This may represent superimposition shadow but further evaluation is recommended. Small area of nodularity superior posterior left MLO view may represent a low axillary tail lymph node. Spot compression recommended to better assess margins. No suspicious microcalcification or other discrete abnormality is seen. Overall Assessment: Incomplete: need additional imaging evaluation, BI-RAD 0 Management: Special View Mammogram of both breasts. [facility] will attempt to contact patient to return for supplemental views and ultrasound if indicated. [facility], , 05/31/2024 10:38 AM. Electronically signed and approved by: Lydia Gibson M.D. Radiologist
== END | disposition home or self-care (01) ==
LOC: RADUSWWP 15:46
PROVIDERS: ATTEND Family Medicine
DX: Z12.31 Encounter for screening mammogram for malignant neoplasm of breast (principal); R92.323 Mammographic fibroglandular density, bilateral breasts; E04.9 Nontoxic goiter, unspecified; Z80.3 Family history of malignant neoplasm of breast; Z92.0 Personal history of contraception
CPT/HCPCS: 76536; 77063; 77067

== ENCOUNTER → 2024-06-02 | Outpatient (CLI) | payer BC ==
--- NOTE | 2024-06-02 08:59 | MM ---
Reason for Exam: Additional evaluation requested from abnormal screening. Last screening mammogram was performed less than 1 month ago. Patient History: Menarche at age 11. First Full-Term at age 17. Patient used Hormonal Contraceptives for 3 years. Maternal aunt had breast cancer, age 30. Risk Values: Shi 5 year model risk: 0.6%. NCI Lifetime model risk: 7.7%. Prior Study Comparison: 09/08/2013 Bilateral Diagnostic Mammogram, [facility]. 05/30/2024 Bilateral MG 3D screening mammo w/cad, [facility]. Tissue Density: There are scattered areas of fibroglandular density. Findings: Analyzed By CAD. The questioned asymmetric density lateral right CC view disperses on additional views compatible with superimposition shadow. Area of 6 mm nodularity superior posterior left breast incompletely disperses. On the 3-D lateral view, there is a possible fatty notch, suspected low axillary tail lymph node and this can be reassessed in 6 months. Overall Assessment: Probably benign, BI-RAD 3 Management: Diagnostic Mammogram of the left breast in 6 months. Results were given to the patient verbally at the time of exam. Patient should continue monthly self-breast exams. A clinical breast exam by your physician is recommended on an annual basis. This exam should not preclude additional follow-up of suspicious palpable abnormalities. Note on Shi scores and lifetime risk: 1. A Shi score greater than 3% is considered moderate risk. If this is the case, consider specialist referral to assess eligibility for a risk reducing agent. 2. If overall lifetime risk for the development of breast cancer is 20% or higher, the patient may qualify for future screening with alternating mammogram and breast MRI. [facility], , 06/02/2024 8:56 AM. Electronically signed and approved by: Lydia Gibson M.D. Radiologist
== END | disposition home or self-care (01) ==
LOC: RADMAMWWP 08:24
PROVIDERS: ATTEND Family Medicine
DX: R92.8 Other abnormal and inconclusive findings on diagnostic imaging of breast (principal); R92.323 Mammographic fibroglandular density, bilateral breasts; Z92.0 Personal history of contraception; Z80.3 Family history of malignant neoplasm of breast
CPT/HCPCS: 77062; 77066

== ENCOUNTER → 2024-06-20 | Outpatient (CLI) | payer BC ==
--- NOTE | 2024-06-20 09:18 | CT ---
EXAMINATION TYPE: CT chest wo con DATE OF EXAM: 06/20/2024 8:44 AM COMPARISON: 05/19/2023 CLINICAL INDICATION: Female, 44 years old with history of R91.8 OTHER NONSPECIF IC ABNORMAL FINDING OF LUNG F; PHH, LUNG NODULE F/U TECHNIQUE: Multiple axial images were obtained through the chest. Sagittal and coronal reformats were created for review. MIP was performed on a separate workstation. Contrast used: mL of (None if empty) Oral contrast used: (None if empty) CT DLP: 606.9 mGycm, Automated exposure control for dose reduction was used. FINDINGS: LUNGS/ PLEURA: Stable right lower lobe nodules measuring up to 11 mm back to 05/19/2023 series 3 image 28. Satellite nodule seen on prior lung major fissure not visualized on today's exam. No new or enla rging pulmonary nodules identified. No focal consolidation, pneumothorax or pleural effusion. AIRWAY: Patent and unremarkable. HEART: Size within normal limits. No significant coronary artery calcifications. MEDIASTINUM: No gross evidence of adenopathy. VASCULATURE: No aortic aneurysm. MUSCULOSKELETAL: No acute osseous abnormalities SOFT TISSUES/LYMPH NODES: Unremarkable. LOWER NECK: No significant findings. UPPER ABDOMEN: Diffuse low-attenuation to the liver parenchyma. IMPRESSION: Fractionally larger right lower lobe 10 mm nodule appears to 8 mm. Given slow growth in 1 year findin gs favor granulomatous nodule. Consider short-term follow-up in one year. No additional nodules ident ified. [facility], , 06/20/2024 9:16 AM
== END | disposition home or self-care (01) ==
LOC: RADCTMAIN 08:28
PROVIDERS: ATTEND Family Medicine
DX: R91.8 Other nonspecific abnormal finding of lung field (principal)
CPT/HCPCS: 71250